=== PATIENT | male | born 1950 ===

== ENCOUNTER 2020-12-31 11:15 | Outpatient (REF) | payer OTHER, MEDICAID, SELFPAY ==
[2020-12-31 12:17] LABS: MANUAL DIFF FLAG NO
[2020-12-31 12:21] LABS: Basophils Percent Auto 0.5 % (0-2); Eosinophils Absolute Auto 0.1 X10*3/uL (0.0-0.4); Eosinophils Percent Auto 1.9 % (0-4); Hematocrit 39.3 % (42.0-52.0); Hemoglobin 13.2 g/dl (14.0-18.0); Imm Gran Abs Auto 0.02 X10*3/uL (0.00-0.03); Imm Gran Pct Auto 0.3 % (0.0-0.4); Lymphocytes Absolute Auto 1.3 X10*3/uL (1.2-4.9); Lymphocytes Percent Auto 20.2 % (20-40); Mean Corpuscular HGB Conc 33.6 g/dl (31.0-36.0); Mean Corpuscular Hemoglobin 27.8 pg (27.0-33.0); Mean Corpuscular Volume 82.9 fL (80.0-98.0); Mean Platelet Volume 11.6 fL (9.4-12.4); Monocytes Absolute Auto 0.5 X10*3/uL (0.1-1.2); Monocytes Percent Auto 8.6 % (2-11); Neutrophils Absolute Auto 4.3 x10*3/uL (2.0-8.3); Neutrophils Percent Auto 68.5 % (45-73); Platelet Count 163 X10*3/uL (160-400); Red Blood Count 4.74 X10*6/uL (4.60-5.80); Red Cell Distribution Width 12.9 % (11.0-16.0); White Blood Count 6.3 X10*3/uL (4.8-10.8)
[2020-12-31 12:34] LABS: INTERNATIONAL NORM RATIO 1.2 (0.9-1.1); Prothrombin Time 13.2 SEC (9.9-13.0)
[2020-12-31 12:44] LABS: Alanine Aminotransferase 12 U/L (0-40); Albumin Level 4.2 g/dL (3.5-5.0); Alkaline Phosphatase 66 U/L (39-117); Anion Gap 11 (12-20); Aspartate Amino Transferase 14 U/L (5-37); Bilirubin Direct 0.2 mg/dL (0.0-0.5); Bilirubin Total 0.4 mg/dL (0.0-1.0); Blood Urea Nitrogen 20 mg/dL (9-16); Calcium 9.2 mg/dL (8.4-10.2); Carbon Dioxide 24 mmol/L (22-29); Chloride 110 mmol/L (96-108); Estimated Glomerular Filt Rate > 60; Glucose Random 96 mg/dL (60-115); Potassium 3.8 mmol/L (3.3-5.1); Sodium 141 mmol/L (135-145); Total Protein 7.3 g/dL (6.5-8.0)
[2021-01-03 10:22] LABS: HCV Log PCR <1.18 NOT DETECTED Log IU/mL (NOT DETECTED); HepC Viral Load <15 NOT DETECTED IU/mL (NOT DETECTED)
[2021-01-03 16:16] LABS: FIB-ALT 9 U/L (9-46); FIB-Alpha-2-Macroglobulin 240 mg/dL (106-279); FIB-Apolipoprotein A1 102 mg/dL (94-176); FIB-GGT 13 U/L (3-70); FIB-Haptoglobin 99 mg/dL (43-212); FIB-Total Bilirubin 0.4 mg/dL (0.2-1.2); Liver Fibrosis Score 0.47; Liver Fibrosis Stage F1-F2; Nec Inflam Act Grade A0; Nec Inflam Act Score 0.03
== END 2020-12-31 11:16 | disposition home or self-care (01) ==
LOC: HO.LAB 11:15
PROVIDERS: PCP Internal Medicine; Visit Provider Internal Medicine
DX: B19.20 Unspecified viral hepatitis C without hepatic coma (principal)
CPT/HCPCS: 36415; 80048; 80076; 81596; 85025; 85610; 87522; 99202

== ENCOUNTER 2025-02-05 14:36 | Outpatient (AMB) | payer OTHER, SELFPAY ==
--- OUTSIDE RECORDS SUMMARY | 2025-02-05 14:50 | XMS_ITS | Encounter Summary ---
Author Organization [facility] [address] Address [address] [place] [address] Care Team Providers Care Senior Validation Engineer Name Role Phone Florentin Travis NP Primary Care Provider [phone] Reason for Visit * Consultation (Routine) - Authorized Specialty Diagnoses / Procedures Referred By Flavio guevara Referred To Contact Neurology Diagnoses Cervical dystonia Florentin Travis NP [address] [address] Phone: tel: fax:[phone] [facility] [address] Phone: tel: Referral ID Status Reason Start Date Expiration Date Visits Requested Visits Authorized [id number] Authorized Specialty Services Required 11/12/2024 11/12/2025 1 1 Encounter Details Date Type Department Care Team ([facility] Contact Info) Description 02/05/2025 2:50 PM EST PACE External Visit [facility] [address] [place] [id number] Social History Tobacco Use Types Packs/Day Years Used Date Smoking Tobacco: Former Cigarettes Comments:tob stopped 1982 Alcohol Use Standard Drinks/Week Comments Not Asked 0 (1 standard drink = 0.6 oz pur e alcohol) last drank in 2016 Sex and Gender Information Value Date Recorded Sex Assigned at Male 03/02/2024 10:20 AM EST Legal Sex Male 2:03 PM EST Gender Identity Male 03/02/2024 10:20 AM EST Sexual Orientation Straight 03/02/2024 10 :20 AM EST documented as of this encounter Plan of Treatment Upcoming Encounters Date Type Department Care Team ([facility] st Contact Info) Description 02/06/2025 10:30 AM EST PACE Home Care / [place] [facility] [place] [facility] [address] [place] [address] Leonides Lopez 02/07/2025 9:00 AM EST P[place] Attend[place] [facility] [place] [facility] [address] [place] [address] 02/08/2025 9:00 AM EST PACE Att[place] [facility] [place] [facility] [address] [place] [address] 02/11/2025 9:00 AM EST PACE Att[place] [facility] [place] [facility] [address] [place] [address] 02/12/2025 9:00 AM EST PACE Att[place] [facility] [place] [facility] [address] [place] [address] 02/13/2025 10:30 AM EST PACE Home Care / [place] [facility] [place] [facility] [place] [facility] [address] [place] [address] Leonides Lopez 02/14/2025 9:00 AM EST PACE Att[place] [facility] [place] [facility] [address] [place] [address] 02/15/2025 9:00 AM EST PACE [place] [facility] [place] [facility] [address] [place] [address] 02/18/2025 9:00 AM EST PACE Att[place] [facility] [place] [facility] [facility] [address] [place] [address] 02/19/2025 9:00 AM EST PACE Att[place] [facility] [place] [facility] [facility] [address] [place] [address] 02/20/2025 10:30 AM EST PACE Home Care / [place] [facility] [place] [facility] [address] [place] [address] Leonides Lopez 02/21/2025 9:00 AM EST PACE Att[place] [facility] [place] [facility] [address] [place] [address] 02/21/2025 2:00 PM EST PACE Home Care / [place] [facility] [place] [facility] [address] [place] [address] Chanell Marcos 02/22/2025 9:00 AM EST PACE [place] [facility] [place] [facility] [facility] [address] [place] [address] 02/25/2025 9:00 AM EST [place] [facility] [place] [facility] [address] [place] [address] 02/26/2025 9:00 AM EST PACE [place] [facility] [place] [facility] [facility] [address] [place] [address] 02/27/2025 10:30 AM EST PACE Home Care / [place] [facility] [place] [facility] [address] [place] [address] Leonides Lopez 02/28/2025 9:00 AM EST PACE Att[place] [facility] [place] [facility] [facility] [address] [place] [address] 03/01/2025 9:00 AM EST P[place] [facility] [place] [facility] [address] [place] [address] 03/04/2025 9:00 AM EST PACE Attendance/[facility] [place] [facility] [address] [place] [address] 03/05/2025 9:00 AM EST PACE Att[place] [facility] [place] [facility] [facility] [address] [place] [address] 03/06/2025 10:30 AM EST PACE Home Care / [place] [facility] [place] [facility] [address] [place] [address] Leonides Lopez 03/07/2025 9:00 AM EST PACE Att[place] [facility] [place] [facility] [address] [place] [address] 03/07/2025 1:00 PM EST Clinical Support [facility] [place] [address] [place] [address] 03/08/2025 9:00 AM EST PACE [place] [facility] [place] [facility] [facility] [address] [place] [address] 03/11/2025 9:00 AM EST P[place] [facility] [place] [facility] [facility] [address] [place] [address] 03/12/2025 9:00 AM EST P[place] [facility] [place] [facility] [address] [place] [address] 03/13/2025 10:30 AM EST PACE Home Care / [place] [facility] [place] [facility] [address] [place] [address] Leonides Lopez 03/14/2025 9:00 AM EST P[place] [facility] [place] [facility] [address] [place] [address] 03/14/2025 2:00 PM EST PACE Home Care / [place] [facility] [place] [facility] [address] [place] [address] Chanell Marcos 03/15/2025 9:00 AM EST P[place] [facility] [place] [facility] [address] [place] [address] 03/18/2025 9:00 AM EST P[place] [facility] [place] [facility] [address] [place] [address] 03/19/2025 9:00 AM EST [place] [facility] [place] [facility] [address] [place] [address] 03/20/2025 10:30 AM EST PACE Home Care / [place] [facility] [place] [facility] [address] [place] [address] Leonides Lopez 03/21/2025 9:00 AM EST P[place] [facility] [place] [facility] [facility] [address] [place] [address] 03/22/2025 9:00 AM EST [place] [facility] [place] [facility] [address] [place] [address] 03/25/2025 9:00 AM EST P[place] [facility] [place] [facility] [address] [place] [address] 03/26/2025 9:00 AM EST [place] [facility] [place] [facility] [address] [place] [address] 03/27/2025 10:30 AM EST PACE Home Care / [place] [facility] [place] [facility] [address] [place] [address] Leonides Lopez 03/28/2025 9:00 AM EST [place] [facility] [place] [facility] [facility] [address] [place] [address] 03/29/2025 9:00 AM EST [place] [facility] [place] [facility] [facility] [address] [place] [address] 04/01/2025 9:00 AM EST [place] [facility] [place] [facility] [facility] [address] [place] [address] 04/02/2025 9:00 AM EST [place] [facility] [place] [facility] [facility] [address] [place] [address] 04/03/2025 10:30 AM EST PACE Home Care / [place] [facility] [place] [facility] [address] [place] [address] Leonides Lopez 04/04/2025 9:00 AM EST [place] [facility] [place] [facility] [facility] [address] [place] [address] 04/04/2025 2:00 PM EST PACE Home Care / [place] [facility] [place] [facility] [address] [place] [address] Chanell Marcos 04/05/2025 9:00 AM EST P[place] [facility] [place] [facility] [address] [place] [address] 04/08/2025 9:00 AM EST P[place] [facility] [place] [facility] [address] [place] [address] 04/09/2025 9:00 AM EST [place] [facility] [place] [facility] [address] [place] [address] 04/11/2025 9:00 AM EST P[place] [facility] [place] [facility] [address] [place] [address] 04/12/2025 9:00 AM EST P[place] [facility] [place] [facility] [address] [place] [address] 04/15/2025 9:00 AM EST P[place] [facility] [place] [facility] [facility] [address] [place] [address] 04/16/2025 9:00 AM EST [place] [facility] [place] [facility] [facility] [address] [place] [address] 04/18/2025 9:00 AM EST PACE Attendance[facility] [place] [facility] [address] [place] [address] 04/19/2025 9:00 AM EST PACE [place] [facility] [place] [facility] [facility] [address] [place] [address] 04/22/2025 9:00 AM EST P[place] [facility] [place] [facility] [address] [place] [address] 04/23/2025 9:00 AM EST PACE [place] [facility] [place] [address] [place] [address] 04/25/2025 9:00 AM EST P[place] [facility] [place] [address] [place] [address] 04/26/2025 9:00 AM EST P[place] [facility] [place] [facility] [address] [place] [address] 04/29/2025 9:00 AM EDT PACE Att[place] [facility] [place] [facility] [address] [place] [address] 04/30/2025 9:00 AM EDT PACE Att[place] [facility] [place] [address] [place] [address] 05/02/2025 9:00 AM EDT P[place] Att[place] [facility] [place] [facility] [address] [place] [address] 05/03/2025 9:00 AM EDT P[place] Att[place] [facility] [place] [facility] [address] [place] [address] 05/06/2025 9:00 AM EDT P[place] Att[place] [facility] [place] [facility] [address] [place] [address] 05/07/2025 9:00 AM EDT P[place] Att[place] [facility] [place] [facility] [address] [place] [address] 05/09/2025 9:00 AM EDT P[place] Att[place] [facility] [place] [facility] [address] [place] [address] 05/10/2025 9:00 AM EDT P[place] [facility] [place] [facility] [address] [place] [address] 05/13/2025 9:00 AM EDT P[place] Att[place] [facility] [place] [facility] [address] [place] [address] 05/14/2025 9:00 AM EDT P[place] [facility] [place] [facility] [address] [place] [address] 05/16/2025 9:00 AM EDT P[place] [facility] [place] [facility] [address] [place] [address] 05/17/2025 9:00 AM EDT P[place] Att[place] [facility] [place] [facility] [address] [place] [address] 05/20/2025 9:00 AM EDT [place] Att[place] [facility] [place] [facility] [address] [place] [address] 05/21/2025 9:00 AM EDT P[place] Att[place] [facility] [place] [facility] [address] [place] [address] 05/23/2025 9:00 AM EDT P[place] [facility] [place] [facility] [facility] [address] [place] [address] 05/24/2025 9:00 AM EDT P[place] [facility] [place] [facility] [facility] [address] [place] [address] 05/27/2025 9:00 AM EDT P[place] Att[place] [facility] [place] [facility] [address] [place] [address] 05/28/2025 9:00 AM EDT P[place] Att[place] [facility] [place] [facility] [facility] [address] [place] [address] 05/30/2025 9:00 AM EDT P[place] Att[place] [facility] [place] [facility] [address] [place] [address] 05/31/2025 9:00 AM EDT P[place] [facility] [place] [facility] [facility] [address] [place] [address] 06/03/2025 9:00 AM EDT P[place] Att[place] [facility] [place] [facility] [address] [place] [address] 06/04/2025 9:00 AM EDT P[place] [facility] [place] [facility] [address] [place] [address] 06/06/2025 9:00 AM EDT P[place] [facility] [place] [facility] [address] [place] [phone] 06/07/2025 9:00 AM EDT P[place] [facility] [place] [facility] [address] [place] [address] 06/10/2025 9:00 AM EDT P[place] [facility] [place] [facility] [address] [place] [address] 06/11/2025 9:00 AM EDT P[place] Att[place] [facility] [place] [facility] [address] [place] [address] 06/13/2025 9:00 AM EDT P[place] Att[place] [facility] [place] [facility] [address] [place] [address] 06/14/2025 9:00 AM EDT P[place] [facility] [place] [facility] [facility] [address] [place] [address] 06/17/2025 9:00 AM EDT P[place] [facility] [place] [facility] [facility] [address] [place] [address] 06/18/2025 9:00 AM EDT P[place] Att[place] [facility] [place] [facility] [address] [place] [address] 06/20/2025 9:00 AM EDT P[place] [facility] [place] [facility] [facility] [address] [place] [address] 06/21/2025 9:00 AM EDT P[place] [facility] [place] [facility] [address] [place] [address] 06/24/2025 9:00 AM EDT P[place] [facility] [place] [facility] [facility] [address] [place] [address] 06/25/2025 9:00 AM EDT P[place] [facility] [place] [facility] [address] [place] [address] 06/27/2025 9:00 AM EDT P[place] [facility] [place] [facility] [address] [place] [address] 06/28/2025 9:00 AM EDT P[place] [facility] [place] [facility] [address] [place] [address] 07/01/2025 9:00 AM EDT P[place] Att[place] [facility] [place] [facility] [address] [place] [address] 07/02/2025 9:00 AM EDT [place] Att[place] [facility] [place] [facility] [address] [place] [address] 07/04/2025 9:00 AM EDT [place] Att[place] [facility] [place] [facility] [address] [place] [address] 07/05/2025 9:00 AM EDT P[place] [facility] [place] [facility] [address] [place] [address] 07/08/2025 9:00 AM EDT P[place] [facility] [place] [facility] [address] [place] [address] 07/09/2025 9:00 AM EDT [place] [facility] [place] [facility] [address] [place] [address] 07/11/2025 9:00 AM EDT P[place] [facility] [place] [facility] [address] [place] [address] 07/12/2025 9:00 AM EDT P[place] [facility] [place] [facility] [address] [place] [address] 07/15/2025 9:00 AM EDT P[place] [facility] [place] [facility] [address] [place] [address] 07/16/2025 9:00 AM EDT P[place] [facility] [place] [facility] [address] [place] [address] 07/18/2025 9:00 AM EDT P[place] [facility] [place] [facility] [address] [place] [address] 07/19/2025 9:00 AM EDT P[place] [facility] [place] [facility] [address] [place] [address] 07/22/2025 9:00 AM EDT P[place] [facility] [place] [facility] [address] [place] [address] 07/23/2025 9:00 AM EDT P[place] [facility] [place] [facility] [address] [place] [address] 07/25/2025 9:00 AM EDT P[place] Att[place] [facility] [place] [facility] [address] [place] [address] 07/26/2025 9:00 AM EDT P[place] [facility] [place] [facility] [address] [place] [address] 07/29/2025 9:00 AM EDT P[place] Att[place] [facility] [place] [facility] [address] [place] [address] 07/30/2025 9:00 AM EDT P[place] Att[place] [facility] [place] [facility] [address] [place] [address] 08/01/2025 9:00 AM EDT P[place] [facility] [place] [facility] [address] [place] [address] 08/02/2025 9:00 AM EDT P[place] [facility] [place] [facility] [address] [place] [address] 08/05/2025 9:00 AM EDT P[place] [facility] [place] [facility] [address] [place] [address] 08/06/2025 9:00 AM EDT P[place] [facility] [place] [facility] [address] [place] [address] 08/08/2025 9:00 AM EDT P[place] Att[place] [facility] [place] [facility] [address] [place] [address] 08/09/2025 9:00 AM EDT PACE Att[place] [facility] [place] [facility] [address] [place] [address] 08/12/2025 9:00 AM EDT P[place] [facility] [place] [facility] [address] [place] [address] 08/13/2025 9:00 AM EDT P[place] Att[place] [facility] [place] [facility] [address] [place] [address] 08/15/2025 9:00 AM EDT [place] [facility] [place] [facility] [address] [place] [address] 08/16/2025 9:00 AM EDT P[place] [facility] [place] [facility] [address] [place] [address] 08/19/2025 9:00 AM EDT [place] [facility] [place] [facility] [address] [place] [address] 08/20/2025 9:00 AM EDT [place] [facility] [place] [facility] [address] [place] [address] 08/22/2025 9:00 AM EDT [place] [facility] [place] [facility] [address] [place] [address] 08/23/2025 9:00 AM EDT P[place] [facility] [place] [facility] [address] [place] [address] 08/26/2025 9:00 AM EDT P[place] [facility] [place] [facility] [address] [place] [address] 08/27/2025 9:00 AM EDT P[place] [facility] [place] [facility] [address] [place] [address] 08/29/2025 9:00 AM EDT P[place] [facility] [place] [facility] [address] [place] [address] 08/30/2025 9:00 AM EDT P[place] [facility] [place] [facility] [address] [place] [address] 09/02/2025 9:00 AM EDT P[place] [facility] [place] [facility] [address] [place] [address] 09/03/2025 9:00 AM EDT PACE Attendance/Day Center [facility] Day Center [address] [place] [address] 09/05/2025 9:00 AM EDT PACE Attendance/Day Center [facility] Day Center [address] [place] [address] 09/06/2025 9:00 AM EDT PACE Attendance/Day Center [facility] Day Center [address] [place] [address] 09/09/2025 9:00 AM EDT [facility] Day Center [address] [place] [address] 09/10/2025 9:00 AM EDT [facility] PACE Day [address] [address] 09/12/2025 9:00 AM EDT [facility] Day [address] [address] documented as of this encounter Visit Diagnoses Not on filedocumented in this encounter Orders Outpatient Referral Count Last Ordered Date Fir st Ordered Date AMB REFERRAL TO NEUROLOGY 1 02/05/2025 documented in this encounter Additional Health Concerns Assessment Noted Time PHQ-9 Depression Total Score: 0 12/29/19 25 10:21 AM EST documented as of this encounter Care Teams Senior Validation Engineer Relationship Specialty Start Date End Date Florentin Travis NP [address] [facility] [address] [place] [address] PCP - General 12/27/23 documented as of this encounter
--- NOTE | 2025-02-05 15:06 | MHC.OFFVIS ---
Intake Visit Reasons: cervical dystonia Allergies No Known Allergies Allergy (Verified 12/31/20 11:20) HPI Comments Details: The patient is a 74-year-old male who presents for evaluation after his clinic scheduled an appointment for him regarding an ongoing neck issue. He reports that for the past several years, his neck has been involuntarily turning up and to the right. He describes the sensation as discomfort rather than pain. The patient reports taking a muscle relaxer for his neck, which he finds helpful. He also takes lorazepam for anxiety. [facility] Medical History Hepatitis C Review of Systems Narrative Constitutional:?No fever, chills, fatigue, weight loss, or night sweats. HEENT:?No headache, vision changes, hearing loss, nasal congestion, sore throat. Cardiovascular:?No chest pain, palpitations, orthopnea, PND, or leg swelling. Respiratory:?No cough, shortness of breath, wheezing, or hemoptysis. Gastrointestinal:?No nausea, vomiting, abdominal pain, diarrhea, or constipation. Genitourinary:?No dysuria, frequency, incontinence, or hematuria. Musculoskeletal:?No joint pain, stiffness, weakness, or muscle aches. Neurological:? Complain of neck tilting to right side Psychiatric:? Complain of anxiety Endocrine:?No heat/cold intolerance, polydipsia, polyuria, or hair/skin changes. Hematologic/Lymphatic:?No easy bruising, bleeding, or lymphadenopathy. Integumentary (Skin):?No rash, lesions, itching, or color changes. Allergic/Immunologic:?No seasonal allergies, hives, or recurrent infections. Physical Exam Neuro Other: Mental Status: Alert and oriented to person, place, and time. Normal attention. Normal spontaneous speech, fluency, and comprehension. Cranial Nerves: CN II: Visual murillo full to confrontation, visual acuity intact. CN III, IV, : Pupils equal, round, reactive to light and accommodation. Extraocular movements are normal. CN V: Facial sensation is normal. CN VII: Facial movements symmetrical. CN VIII: Hearing intact to bedside conversation is normal. CN IX, X: Palate elevates symmetrically. CN XI: Shoulder shrug and head turn symmetrical. CN XII: Tongue midline without atrophy or fasciculations. Motor: Bulk and tone normal in all extremities. No significant muscle weakness in arms and legs. No drift. Reflexes: Deep tendon reflexes trace and symmetric. Plantar response down-going bilaterally. Coordination: [id number] was okay. Gait and Station: No obvious gait abnormality. No ataxia or instability. Sensory: Intact to light touch, pinprick, and vibration. Romberg is negative. Extrapyramidal: Moderate neck dystonia to the right side with prominence of left sternocleidomastoid muscle. Speech: Normal; no dysarthria or tremor. 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 He was educated about this condition and its potential treatment. Treatment of choice is Botox, which he did not want to have. Medical treatment does not work and this type of condition. He was not having any neck pain and decided not to have any treatment. In future, if he changes his mind he can contact our office and Botox can be tried. The procedure of giving Botox and its potential benefits and risks were discussed. Coding Level of Care Code New Pt Level 3 (89490) Diagnoses Cervical dystonia G24.3
--- OUTSIDE RECORDS SUMMARY | 2025-02-05 18:52 | XMS_ITS | Encounter Summary ---
Author Organization [facility] Address [address] [place] [address] Care Team Providers Care Awning Spreader Name Role Phone Florentin Travis NP Primary Care Provider [phone] Reason for Visit * Reason Onset Date Comments Clinical 11/02/2024 Par called to re port after eating potato chips and drinking a pieter daniel he has heartburn. Par stated he had some tums and would that help. Instructed par to take them and drink warm water to assist with getting some relief. Verbalized understanding. Instructed to call back if symptoms worsen. Encounter Details Date Type Department Care Team ([facility] Contact Info) Description 11/02/2024 [facility] On-Call [facility] [address] [place] [address] Florentin Travis NP [address] [address] Social History Tobacco Use Types Packs/Day Years [...] Upcoming Encounters Date Type Department Care Team ([facility] Contact Info) Description 02/06/2025 10:30 AM EST PACE Home Care / [place] [facility] [place] [facility] [address] [place] [address] Leonides Lopez 02/07/2025 9:00 AM EST [place] Att[place] [facility] [place] [address] [place] [address] 02/08/2025 9:00 AM EST [place] [facility] [place] [address] [place] [address] 02/11/2025 9:00 AM EST [place] [facility] [place] [address] [place] [address] 02/12/2025 9:00 AM EST [place] [facility] [place] [address] [place] [phone] 02/13/2025 10:30 AM EST PACE Home Care / [facility] [place] [facility] [address] [place] [address] Leonides Lopez 02/14/2025 9:00 AM EST PACE [place] [facility] [place] [facility] [address] [place] [address] 02/15/2025 9:00 AM EST P[place] [facility] [place] [address] [place] [phone] 02/18/2025 9:00 AM EST [place] [facility] [place] [facility] [address] [place] [phone] 02/19/2025 9:00 AM EST [place] [facility] [place] [facility] [address] [place] [phone] 02/20/2025 10:30 AM EST PACE Home Care / [place] [facility] [place] [facility] [address] [place] [phone] Leonides Lopez 02/21/2025 9:00 AM EST [place] [facility] [place] [address] [place] [address] 02/21/2025 2:00 PM EST PACE Home Care / [place] [facility] [place] [facility] [address] [place] [address] Chanell Marcos 02/22/2025 9:00 AM EST P[place] [facility] [place] [facility] [address] [place] [address] 02/25/2025 9:00 AM EST [place] [facility] [place] [facility] [address] [place] [address] 02/26/2025 9:00 AM EST [place] [facility] [place] [facility] [place] [address] [place] [phone] 02/27/2025 10:30 AM EST PACE Home Care / [place] [facility] [place] [facility] [address] [place] [phone] Leonides Lopez 02/28/2025 9:00 AM EST [place] [facility] [place] [address] [place] [address] 03/01/2025 9:00 AM EST [place] [facility] [place] [facility] [address] [place] [address] 03/04/2025 9:00 AM EST [place] [facility] [place] [facility] [address] [place] [address] 03/05/2025 9:00 AM EST P[place] [facility] [place] [facility] [address] [place] [address] 03/06/2025 10:30 AM EST PACE Home Care / [place] [facility] [place] [facility] [address] [place] [address] Leonides Lopez 03/07/2025 9:00 AM EST [place] [facility] [place] [facility] [address] [place] [address] 03/07/2025 1:00 PM EST [facility] [address] [place] [address] 03/08/2025 9:00 AM EST [place] [facility] [place] [address] [place] [address] 03/11/2025 9:00 AM EST [place] [facility] [place] [address] [place] [address] 03/12/2025 9:00 AM EST [place] [facility] [place] [address] [address] 03/13/2025 10:30 AM EST PACE Home Care / [facility] [place] [facility] [address] [place] [phone] Leonides Lopez 03/14/2025 9:00 AM EST [place] [facility] [place] [address] [address] 03/14/2025 2:00 PM EST PACE Home Care / [place] [facility] [place] [facility] [address] [place] [phone] Chanell Marcos 03/15/2025 9:00 AM EST [place] [facility] [place] [address] [place] [phone] 03/18/2025 9:00 AM EST [place] [facility] [place] [address] [place] [address] 03/19/2025 9:00 AM EST [place] [facility] [place] [address] [place] [address] 03/20/2025 10:30 AM EST PACE Home Care / [place] [facility] [place] [facility] [address] [place] [address] Leonides Lopez 03/21/2025 9:00 AM EST [place] [facility] [place] [address] [place] [address] 03/22/2025 9:00 AM EST [place] [facility] [place] [address] [place] [address] 03/25/2025 9:00 AM EST [place] [facility] [place] [address] [place] [address] 03/26/2025 9:00 AM EST [place] [facility] [place] [address] [place] [address] 03/27/2025 10:30 AM EST PACE Home Care / [place] [facility] [place] [facility] [address] [place] [address] Leonides Lopez 03/28/2025 9:00 AM EST [place] [facility] [place] [address] [place] [address] 03/29/2025 9:00 AM EST [place] [facility] [place] [address] [place] [address] 04/01/2025 9:00 AM EST [place] [facility] [place] [address] [place] [address] 04/02/2025 9:00 AM EST [place] [facility] [place] [address] [place] [address] 04/03/2025 10:30 AM EST PACE Home Care / [place] [facility] [place] [facility] [address] [place] [address] Leonides Lopez 04/04/2025 9:00 AM EST [place] [facility] [place] [address] [place] [address] 04/04/2025 2:00 PM EST PACE Home Care / [place] [facility] [place] [facility] [address] [place] [address] AshaChanell daily 04/05/2025 9:00 AM EST [place] [facility] [place] [address] [place] [address] 04/08/2025 9:00 AM EST [place] [facility] [place] [address] [place] [address] 04/09/2025 9:00 AM EST PACE Attendance/[place] [facility] [place] [address] [place] [phone] 04/11/2025 9:00 AM EST [place] [facility] [place] [address] [place] [phone] 04/12/2025 9:00 AM EST [place] [facility] [place] [address] [place] [address] 04/15/2025 9:00 AM EST [place] [facility] [place] [facility] [address] [place] [address] 04/16/2025 9:00 AM EST [place] [facility] [place] [address] [place] [address] 04/18/2025 9:00 AM EST PACE Attendance[place] [facility] [place] [address] [place] [address] 04/19/2025 9:00 AM EST [place] [facility] [place] [address] [place] [address] 04/22/2025 9:00 AM EST [place] [facility] [place] [address] [place] [address] 04/23/2025 9:00 AM EST [place] [facility] [place] [address] [place] [address] 04/25/2025 9:00 AM EST [place] [facility] [place] [address] [place] [address] 04/26/2025 9:00 AM EST [place] [facility] [place] [address] [place] [phone] 04/29/2025 9:00 AM EDT [place] Att[place] [facility] [place] [address] [place] [phone] 04/30/2025 9:00 AM EDT [place] [facility] [place] [address] [place] [phone] 05/02/2025 9:00 AM EDT [place] [facility] [place] [address] [place] [phone] 05/03/2025 9:00 AM EDT [place] [facility] [place] [address] [place] [phone] 05/06/2025 9:00 AM EDT [place] [facility] [place] [address] [place] [phone] 05/07/2025 9:00 AM EDT [place] [facility] [place] [facility] [place] [address] [place] [phone] 05/09/2025 9:00 AM EDT [place] [facility] [place] [address] [place] [address] 05/10/2025 9:00 AM EDT [place] [facility] [place] [address] [place] [address] 05/13/2025 9:00 AM EDT [place] [facility] [place] [address] [place] [phone] 05/14/2025 9:00 AM EDT [place] [facility] [place] [facility] [address] [place] [phone] 05/16/2025 9:00 AM EDT [place] [facility] [place] [facility] [address] [place] [address] 05/17/2025 9:00 AM EDT [place] [facility] [place] [address] [place] [phone] 05/20/2025 9:00 AM EDT [place] [facility] [place] [address] [place] [phone] 05/21/2025 9:00 AM EDT [place] [facility] [place] [address] [place] [phone] 05/23/2025 9:00 AM EDT [place] [facility] [place] [facility] [address] [place] [phone] 05/24/2025 9:00 AM EDT [place] [facility] [place] [address] [place] [phone] 05/27/2025 9:00 AM EDT [place] [facility] [place] [address] [place] [phone] 05/28/2025 9:00 AM EDT [place] [facility] [place] [address] [place] [address] 05/30/2025 9:00 AM EDT [place] [facility] [place] [address] [place] [address] 05/31/2025 9:00 AM EDT [place] [facility] [place] [facility] [address] [place] [address] 06/03/2025 9:00 AM EDT [place] [facility] [place] [facility] [address] [place] [address] 06/04/2025 9:00 AM EDT [place] [facility] [place] [facility] [address] [place] [address] 06/06/2025 9:00 AM EDT [place] [facility] [place] [facility] [address] [place] [address] 06/07/2025 9:00 AM EDT [place] [facility] [place] [address] [place] [phone] 06/10/2025 9:00 AM EDT [place] [facility] [place] [facility] [address] [place] [phone] 06/11/2025 9:00 AM EDT [place] [facility] [place] [address] [place] [address] 06/13/2025 9:00 AM EDT [place] [facility] [place] [address] [place] [address] 06/14/2025 9:00 AM EDT [place] [facility] [place] [facility] [address] [place] [address] 06/17/2025 9:00 AM EDT P[place] Att[place] [facility] [place] [facility] [address] [place] [address] 06/18/2025 9:00 AM EDT [place] [facility] [place] [facility] [address] [place] [address] 06/20/2025 9:00 AM EDT [place] [facility] [place] [address] [place] [address] 06/21/2025 9:00 AM EDT [place] [facility] [place] [facility] [address] [place] [address] 06/24/2025 9:00 AM EDT [place] [facility] [place] [facility] [address] [place] [address] 06/25/2025 9:00 AM EDT [place] [facility] [place] [address] [place] [phone] 06/27/2025 9:00 AM EDT [place] [facility] [place] [facility] [address] [place] [phone] 06/28/2025 9:00 AM EDT [place] [facility] [place] [facility] [address] [place] [phone] 07/01/2025 9:00 AM EDT [place] [facility] [place] [address] [place] [address] 07/02/2025 9:00 AM EDT [place] [facility] [place] [facility] [address] [place] [address] 07/04/2025 9:00 AM EDT [place] [facility] [place] [facility] [address] [place] [address] 07/05/2025 9:00 AM EDT [place] [facility] [place] [facility] [address] [place] [address] 07/08/2025 9:00 AM EDT [place] [facility] [place] [facility] [address] [place] [address] 07/09/2025 9:00 AM EDT [place] [facility] [place] [facility] [address] [place] [address] 07/11/2025 9:00 AM EDT [place] [facility] [place] [facility] [address] [place] [address] 07/12/2025 9:00 AM EDT [place] [facility] [place] [facility] [address] [place] [address] 07/15/2025 9:00 AM EDT [place] [facility] [place] [facility] [address] [place] [phone] 07/16/2025 9:00 AM EDT [place] [facility] [place] [facility] [address] [place] [phone] 07/18/2025 9:00 AM EDT [place] [facility] [place] [facility] [address] [place] [phone] 07/19/2025 9:00 AM EDT [place] [facility] [place] [facility] [facility] [address] [place] [address] 07/22/2025 9:00 AM EDT [place] [facility] [place] [facility] [address] [place] [phone] 07/23/2025 9:00 AM EDT [place] [facility] [place] [facility] [facility] [address] [place] [address] 07/25/2025 9:00 AM EDT [place] [facility] [place] [facility] [address] [place] [address] 07/26/2025 9:00 AM EDT [place] [facility] [place] [facility] [address] [place] [phone] 07/29/2025 9:00 AM EDT [place] [facility] [place] [facility] [address] [place] [phone] 07/30/2025 9:00 AM EDT [place] [facility] [place] [facility] [address] [place] [phone] 08/01/2025 9:00 AM EDT [place] [facility] [place] [facility] [address] [place] [phone] 08/02/2025 9:00 AM EDT [place] [facility] [place] [facility] [address] [place] [phone] 08/05/2025 9:00 AM EDT [place] [facility] [place] [facility] [address] [place] [phone] 08/06/2025 9:00 AM EDT [place] [facility] [place] [facility] [address] [place] [phone] 08/08/2025 9:00 AM EDT [place] [facility] [place] [facility] [address] [place] [phone] 08/09/2025 9:00 AM EDT [place] [facility] [place] [facility] [address] [place] [phone] 08/12/2025 9:00 AM EDT [place] [facility] [place] [facility] [address] [place] [phone] 08/13/2025 9:00 AM EDT [place] [facility] [place] [facility] [address] [place] [phone] 08/15/2025 9:00 AM EDT [place] [facility] [place] [facility] [address] [place] [address] 08/16/2025 9:00 AM EDT [place] [facility] [place] [facility] [address] [place] [address] 08/19/2025 9:00 AM EDT [place] [facility] [place] [facility] [address] [place] [address] 08/20/2025 9:00 AM EDT [place] [facility] [place] [address] [place] [phone] 08/22/2025 9:00 AM EDT [place] [facility] [place] [address] [place] [phone] 08/23/2025 9:00 AM EDT [place] [facility] [place] [facility] [address] [place] [phone] 08/26/2025 9:00 AM EDT [place] [facility] [place] [facility] [address] [place] [phone] 08/27/2025 9:00 AM EDT [place] [facility] [place] [address] [place] [phone] 08/29/2025 9:00 AM EDT [place] [facility] [place] [facility] [address] [place] [phone] 08/30/2025 9:00 AM EDT [place] [facility] [place] [address] [place] [phone] 09/02/2025 9:00 AM EDT [place] [facility] [place] [facility] [address] [place] [phone] 09/03/2025 9:00 AM EDT [place] [facility] [place] [address] [place] [phone] 09/05/2025 9:00 AM EDT PACE [facility] [address] [place] [phone] 09/06/2025 9:00 AM EDT PACE [facility] [address] [place] [phone] 09/09/2025 9:00 AM EDT PACE [facility] [address] [place] [phone] 09/10/2025 9:00 AM EDT PACE [facility] [address] [place] [phone] 09/12/2025 9:00 AM EDT PACE [facility] [place] [facility] [address] [place] [phone] documented as of this encounter Visit Diagnoses Not on filedocumented in this encounter Care Teams Awning Spreader Relationship Specialty Start Date End Date Florentin Travis NP [address] [address] PCP - General 12/27/23 documented as of this encounter
--- OUTSIDE RECORDS SUMMARY | 2025-02-05 18:52 | XMS_ITS | Encounter Summary ---
Author Organization [facility] Address [address] [place] [address] Care Team Providers Care Optomechanical Technician Name Role Phone Florentin Travis NP Primary Care Provider [phone] Reason for Visit * Reason Onset Date Comments Clinical 04/28/2024 Participant call ed for a 3rd time today related to anxiety issues after taking prescribed medications. Reports meds are not working. Participant states he needs to go to the ER. Instructed participant to call back with any further info following ER visit. fisher scallop provider made aware. Hospitalization/ER 04/28/2024 Encounter Details Date Type Department Care Team ([facility] st Contact Info) Description 04/28/2024 [place] On-Call [facility] [address] [place] [address] Florentin Travis NP [address] [address] Social History Tobacco Use Types Packs/Day Years [...] AM EST documented as of this encounter Functional Status * Calculated C-SSRS Risk Score (Lifetime/Recent) Answer Date of Assessment Author No Risk Indicated 04/30/2024 10:11 AM EDT Chanell Obando RN * Mcintosh Suicide Severity Rating Scale (Screener/Recent Self-Report) Question Answer Date of Assessment Author 1. Wish to be (Past 1 Month) No 025 10:11 AM Chanell Adkins, BRAIN 2. Non-Specific Active Suici simi Thoughts (Past 1 Month) No 04/30/2024 10:11 AM TRACIET Brodie Mora RN 6. Suicidal Behavior (Lifetime) No 10:11 AM TRACIET Chanell Mora RN 6. Suicidal Behavior (3 Months) No 5 10:11 AM Chanell Adkins RN documented as of this encounter Plan of Treatment Upcoming Encounters Date Type Department Care Team (Late st Contact Info) Description 02/06/2025 10:30 AM EST P[facility] Home [place] / [place] [facility] [place] [facility] [address] [place] [phone] Leonides Lopez 02/07/2025 9:00 AM EST [place] [facility] [place] [facility] [address] [place] [phone] 02/08/2025 9:00 AM EST [place] [facility] [place] [facility] [address] [place] [phone] 02/11/2025 9:00 AM EST [place] [facility] [place] [address] [place] [phone] 02/12/2025 9:00 AM EST P[place] [facility] [place] [facility] [address] [place] [phone] 02/13/2025 10:30 AM EST PACE Home Care / [place] [facility] [place] [facility] [address] [place] [phone] Leonides Lopez 02/14/2025 9:00 AM EST P[place] [facility] [place] [facility] [address] [place] [phone] 02/15/2025 9:00 AM EST [place] [facility] [place] [facility] [facility] [address] [place] [address] 02/18/2025 9:00 AM EST P[place] Att[place] [facility] [place] [facility] [address] [place] [address] 02/19/2025 9:00 AM EST [place] [facility] [place] [facility] [address] [place] [address] 02/20/2025 10:30 AM EST PACE Home Care / [place] [facility] [place] [facility] [address] [place] [phone] Leonides Lopez 02/21/2025 9:00 AM EST [place] [facility] [place] [facility] [address] [place] [phone] 02/21/2025 2:00 PM EST PACE Home Care / [place] [facility] [place] [facility] [address] [place] [phone] Chanell Marcos 02/22/2025 9:00 AM EST [place] [facility] [place] [facility] [address] [place] [phone] 02/25/2025 9:00 AM EST [place] [facility] [place] [facility] [facility] [address] [place] [address] 02/26/2025 9:00 AM EST [place] [facility] [place] [facility] [address] [place] [phone] 02/27/2025 10:30 AM EST PACE Home Care / [place] [facility] [place] [facility] [address] [place] [phone] Leonides Lopez 02/28/2025 9:00 AM EST [place] [facility] [place] [facility] [address] [place] [address] 03/01/2025 9:00 AM EST [place] [facility] [place] [facility] [address] [place] [address] 03/04/2025 9:00 AM EST [place] [facility] [place] [facility] [facility] [address] [place] [address] 03/05/2025 9:00 AM EST [place] [facility] [place] [facility] [facility] [address] [place] [address] 03/06/2025 10:30 AM EST PACE Home Care / [place] [facility] [place] [facility] [address] [place] [phone] Leonides Lopez 03/07/2025 9:00 AM EST [place] [facility] [place] [facility] [address] [place] [phone] 03/07/2025 1:00 PM EST Clinical Support [facility] [place] [address] [place] [phone] 03/08/2025 9:00 AM EST [place] [facility] [place] [facility] [address] [place] [phone] 03/11/2025 9:00 AM EST [place] [facility] [place] [facility] [facility] [address] [place] [address] 03/12/2025 9:00 AM EST [place] [facility] [place] [facility] [facility] [address] [place] [address] 03/13/2025 10:30 AM EST PACE Home Care / [place] [facility] [place] [facility] [address] [place] [phone] Leonides Lopez 03/14/2025 9:00 AM EST [place] [facility] [place] [facility] [address] [place] [address] 03/14/2025 2:00 PM EST PACE Home Care / [place] [facility] [place] [facility] [address] [place] [phone] Chanell Marcos 03/15/2025 9:00 AM EST [place] [facility] [place] [facility] [address] [place] [address] 03/18/2025 9:00 AM EST [place] [facility] [place] [facility] [address] [place] [phone] 03/19/2025 9:00 AM EST [place] [facility] [place] [facility] [address] [place] [phone] 03/20/2025 10:30 AM EST PACE Home Care / [place] [facility] [place] [facility] [address] [place] [phone] Leonides Lopez 03/21/2025 9:00 AM EST [place] [facility] [place] [facility] [address] [place] [phone] 03/22/2025 9:00 AM EST [place] [facility] [place] [facility] [address] [place] [phone] 03/25/2025 9:00 AM EST [place] [facility] [place] [facility] [address] [place] [phone] 03/26/2025 9:00 AM EST [place] [facility] [place] [facility] [address] [place] [phone] 03/27/2025 10:30 AM EST PACE Home Care / [place] [facility] [place] [facility] [address] [place] [phone] Leonides Lopez 03/28/2025 9:00 AM EST [place] [facility] [place] [facility] [address] [place] [address] 03/29/2025 9:00 AM EST [place] [facility] [place] [facility] [address] [place] [address] 04/01/2025 9:00 AM EST [place] [facility] [place] [facility] [address] [place] [address] 04/02/2025 9:00 AM EST [place] [facility] [place] [facility] [address] [place] [phone] 04/03/2025 10:30 AM EST PACE Home Care / [place] [facility] [place] [facility] [address] [place] [phone] Leonides Lopez 04/04/2025 9:00 AM EST [facility] [place] [facility] [address] [place] [phone] 04/04/2025 2:00 PM EST PACE Home Care / [place] [facility] [place] [facility] [address] [place] [phone] Chanell Marcos 04/05/2025 9:00 AM EST [place] [facility] [place] [address] [place] [address] 04/08/2025 9:00 AM EST [place] [facility] [place] [facility] [address] [place] [phone] 04/09/2025 9:00 AM EST [place] [facility] [place] [facility] [address] [place] [phone] 04/11/2025 9:00 AM EST [place] [facility] [place] [facility] [address] [place] [address] 04/12/2025 9:00 AM EST [place] [facility] [place] [facility] [address] [place] [phone] 04/15/2025 9:00 AM EST [place] [facility] [place] [facility] [address] [place] [phone] 04/16/2025 9:00 AM EST [place] [facility] [place] [facility] [address] [place] [phone] 04/18/2025 9:00 AM EST [place] [facility] [place] [facility] [address] [place] [phone] 04/19/2025 9:00 AM EST [place] [facility] [place] [facility] [address] [place] [phone] 04/22/2025 9:00 AM EST [facility] [place] [facility] [address] [place] [phone] 04/23/2025 9:00 AM EST [place] [facility] [place] [facility] [address] [place] [phone] 04/25/2025 9:00 AM EST [place] [facility] [place] [facility] [address] [place] [phone] 04/26/2025 9:00 AM EST [place] [facility] [place] [facility] [address] [place] [phone] 04/29/2025 9:00 AM EDT [place] [facility] [place] [address] [place] [phone] 04/30/2025 9:00 AM EDT [place] [facility] [place] [facility] [address] [place] [phone] 05/02/2025 9:00 AM EDT [place] [facility] [place] [facility] [address] [place] [address] 05/03/2025 9:00 AM EDT [place] [facility] [place] [facility] [address] [place] [address] 05/06/2025 9:00 AM EDT [place] [facility] [place] [facility] [address] [place] [address] 05/07/2025 9:00 AM EDT [place] [facility] [place] [facility] [address] [place] [phone] 05/09/2025 9:00 AM EDT [place] [facility] [place] [address] [place] [phone] 05/10/2025 9:00 AM EDT [place] [facility] [place] [address] [place] [phone] 05/13/2025 9:00 AM EDT [place] [facility] [place] [facility] [address] [place] [phone] 05/14/2025 9:00 AM EDT [place] [facility] [place] [facility] [address] [place] [phone] 05/16/2025 9:00 AM EDT [place] [facility] [place] [facility] [address] [place] [address] 05/17/2025 9:00 AM EDT [place] [facility] [place] [facility] [address] [place] [address] 05/20/2025 9:00 AM EDT [place] [facility] [place] [facility] [address] [place] [phone] 05/21/2025 9:00 AM EDT [place] Att[place] [facility] [place] [facility] [address] [place] [address] 05/23/2025 9:00 AM EDT [place] Att[place] [facility] [place] [facility] [address] [place] [address] 05/24/2025 9:00 AM EDT [place] Att[place] [facility] [place] [facility] [facility] [address] [place] [address] 05/27/2025 9:00 AM EDT P[place] Att[place] [facility] [place] [address] [place] [phone] 05/28/2025 9:00 AM EDT [place] [facility] [place] [facility] [address] [place] [phone] 05/30/2025 9:00 AM EDT [place] [facility] [place] [facility] [address] [place] [phone] 05/31/2025 9:00 AM EDT [place] [facility] [place] [facility] [address] [place] [phone] 06/03/2025 9:00 AM EDT [place] [facility] [place] [facility] [address] [place] [phone] 06/04/2025 9:00 AM EDT [place] [facility] [place] [facility] [address] [place] [phone] 06/06/2025 9:00 AM EDT [place] [facility] [place] [facility] [address] [place] [phone] 06/07/2025 9:00 AM EDT [place] [facility] [place] [facility] [address] [place] [phone] 06/10/2025 9:00 AM EDT [place] Att[place] [facility] [place] [facility] [facility] [address] [place] [address] 06/11/2025 9:00 AM EDT [place] Att[place] [facility] [place] [facility] [facility] [address] [place] [address] 06/13/2025 9:00 AM EDT [place] [facility] [place] [facility] [address] [place] [address] 06/14/2025 9:00 AM EDT [place] [facility] [place] [facility] [address] [place] [phone] 06/17/2025 9:00 AM EDT [place] [facility] [place] [facility] [address] [place] [phone] 06/18/2025 9:00 AM EDT [place] [facility] [place] [facility] [address] [place] [phone] 06/20/2025 9:00 AM EDT [place] [facility] [place] [facility] [address] [place] [phone] 06/21/2025 9:00 AM EDT [place] [facility] [place] [facility] [address] [place] [phone] 06/24/2025 9:00 AM EDT [place] [facility] [place] [facility] [address] [place] [address] 06/25/2025 9:00 AM EDT [place] Att[place] [facility] [place] [facility] [address] [place] [address] 06/27/2025 9:00 AM EDT [place] [facility] [place] [facility] [address] [place] [phone] 06/28/2025 9:00 AM EDT [place] [facility] [place] [facility] [address] [place] [address] 07/01/2025 9:00 AM EDT [place] Att[place] [facility] [place] [facility] [address] [place] [address] 07/02/2025 9:00 AM EDT [place] Att[place] [facility] [place] [facility] [address] [place] [address] 07/04/2025 9:00 AM EDT [place] [facility] [place] [facility] [address] [place] [phone] 07/05/2025 9:00 AM EDT [place] [facility] [place] [facility] [address] [place] [phone] 07/08/2025 9:00 AM EDT [place] [facility] [place] [facility] [address] [place] [phone] 07/09/2025 9:00 AM EDT [place] [facility] [place] [facility] [address] [place] [phone] 07/11/2025 9:00 AM EDT [place] [facility] [place] [facility] [address] [place] [phone] 07/12/2025 9:00 AM EDT [place] [facility] [place] [facility] [address] [place] [phone] 07/15/2025 9:00 AM EDT [place] [facility] [place] [facility] [address] [place] [phone] 07/16/2025 9:00 AM EDT [place] [facility] [place] [facility] [address] [place] [phone] 07/18/2025 9:00 AM EDT [place] [facility] [place] [facility] [facility] [address] [place] [address] 07/19/2025 9:00 AM EDT [place] Att[place] [facility] [place] [facility] [address] [place] [address] 07/22/2025 9:00 AM EDT [place] Att[place] [facility] [place] [facility] [address] [place] [address] 07/23/2025 9:00 AM EDT [place] Att[place] [facility] [place] [facility] [address] [place] [address] 07/25/2025 9:00 AM EDT [place] Att[place] [facility] [place] [facility] [address] [place] [address] 07/26/2025 9:00 AM EDT [place] [facility] [place] [facility] [address] [place] [address] 07/29/2025 9:00 AM EDT [place] [facility] [place] [facility] [address] [place] [phone] 07/30/2025 9:00 AM EDT [place] Att[place] [facility] [place] [facility] [address] [place] [address] 08/01/2025 9:00 AM EDT [place] Att[place] [facility] [place] [facility] [facility] [address] [place] [address] 08/02/2025 9:00 AM EDT [place] [facility] [place] [facility] [facility] [address] [place] [address] 08/05/2025 9:00 AM EDT [place] Att[place] [facility] [place] [facility] [address] [place] [address] 08/06/2025 9:00 AM EDT P[place] Attend[facility] [facility] [place] [facility] [address] [place] [address] 08/08/2025 9:00 AM EDT [place] Att[place] [facility] [place] [facility] [address] [place] [address] 08/09/2025 9:00 AM EDT [place] Att[place] [facility] [place] [facility] [address] [place] [address] 08/12/2025 9:00 AM EDT [place] [facility] [place] [facility] [address] [place] [address] 08/13/2025 9:00 AM EDT [place] [facility] [place] [facility] [address] [place] [address] 08/15/2025 9:00 AM EDT [place] [facility] [place] [facility] [address] [place] [address] 08/16/2025 9:00 AM EDT [place] [facility] [place] [facility] [address] [place] [phone] 08/19/2025 9:00 AM EDT [place] [facility] [place] [facility] [address] [place] [phone] 08/20/2025 9:00 AM EDT [place] [facility] [place] [facility] [address] [place] [address] 08/22/2025 9:00 AM EDT [place] [facility] [place] [facility] [facility] [address] [place] [address] 08/23/2025 9:00 AM EDT [place] [facility] [place] [facility] [facility] [address] [place] [address] 08/26/2025 9:00 AM EDT [place] [facility] [place] [facility] [address] [place] [phone] 08/27/2025 9:00 AM EDT [place] [facility] [place] [address] [place] [phone] 08/29/2025 9:00 AM EDT [place] [facility] [place] [facility] [address] [place] [phone] 08/30/2025 9:00 AM EDT [place] [facility] [place] [facility] [address] [place] [phone] 09/02/2025 9:00 AM EDT [place] [facility] [place] [facility] [address] [place] [phone] 09/03/2025 9:00 AM EDT [place] [facility] [place] [facility] [address] [place] [phone] 09/05/2025 9:00 AM EDT [place] [facility] [place] [facility] [address] [place] [phone] 09/06/2025 9:00 AM EDT [place] [facility] [place] [facility] [address] [place] [phone] 09/09/2025 9:00 AM EDT PACE Attendance/[facility] Center [facility] [address] [place] [phone] 09/10/2025 9:00 AM EDT PACE Attendance/Day Center [facility] [address] [place] [phone] 09/12/2025 9:00 AM EDT [place] [facility] [place] [facility] [address] [place] [phone] documented as of this encounter Visit Diagnoses Not on filedocumented in this encounter Care Teams Optomechanical Technician Relationship Specialty Start Date End Date Florentin Travis NP [address] [address] PCP - General 12/27/23 documented as of this encounter
--- OUTSIDE RECORDS SUMMARY | 2025-02-05 18:52 | XMS_ITS | Encounter Summary ---
Author Organization [facility] Address [address] [place] [address] Care Team Providers Care Records Analysis Manager Name Role Phone Florentin Travis NP Primary Care Provider [phone] Encounter Details Date Type Department Care Team (Late st Contact Info) Description 07/06/2024 Health Home Core Service [facility] [place] [facility] [address] [place] [phone] Penelope Alvarez, ALBA Social History Tobacco Use Types Packs/Day Years Used Date Smoking Tobacco: Former Cigarettes Comments:tob stopped 1982 Alcohol Use Standard Drinks/Week Comments Not Asked 0 (1 standard drink = 0.6 oz pur e alcohol) last drank in 2015 Sex and Gender Information Value Date Recorded [...] PACE Home Care / PACE Home Visit [facility] [address] [place] [phone] Leonides Lopez 02/07/2025 9:00 AM EST PACE Attendance/Day Center [facility] [address] [place] [phone] 02/08/2025 9:00 AM EST [place] Att[place] [facility] [place] [facility] [address] [place] [address] 02/11/2025 9:00 AM EST [place] Att[place] [facility] [place] [facility] [address] [place] [address] 02/12/2025 9:00 AM EST [place] [facility] [place] [facility] [address] [place] [phone] 02/13/2025 10:30 AM EST PACE Home Care / [place] [facility] [place] [facility] [address] [place] [phone] Leonides Lopez 02/14/2025 9:00 AM EST [place] Att[place] [facility] [place] [facility] [address] [place] [address] 02/15/2025 9:00 AM EST [place] Att[place] [facility] [place] [facility] [facility] [address] [place] [address] 02/18/2025 9:00 AM EST [place] [facility] [place] [facility] [address] [place] [phone] 02/19/2025 9:00 AM EST [place] [facility] [place] [facility] [address] [place] [phone] 02/20/2025 10:30 AM EST PACE Home Care / [place] [facility] [place] [facility] [address] [place] [phone] Leonides Lopez 02/21/2025 9:00 AM EST [place] [facility] [place] [facility] [address] [place] [phone] 02/21/2025 2:00 PM EST PACE Home Care / [place] [facility] [place] [facility] [address] [place] [phone] Chanell Marcos 02/22/2025 9:00 AM EST [place] Att[place] [facility] [place] [facility] [facility] [address] [place] [address] 02/25/2025 9:00 AM EST [place] Att[place] [facility] [place] [facility] [facility] [address] [place] [address] 02/26/2025 9:00 AM EST [place] [facility] [place] [facility] [address] [place] [address] 02/27/2025 10:30 AM EST PACE Home Care [facility] [place] [facility] [address] [place] [phone] Leonides Lopez 02/28/2025 9:00 AM EST [place] Att[place] [facility] [place] [facility] [address] [place] [phone] 03/01/2025 9:00 AM EST [place] [facility] [place] [facility] [address] [place] [phone] 03/04/2025 9:00 AM EST [place] [facility] [place] [facility] [address] [place] [phone] 03/05/2025 9:00 AM EST [place] [facility] [place] [facility] [address] [place] [phone] 03/06/2025 10:30 AM EST PACE Home Care / [place] [facility] [place] [facility] [address] [place] [phone] Leonides Lopez 03/07/2025 9:00 AM EST [place] Att[place] [facility] [place] [facility] [address] [place] [phone] 03/07/2025 1:00 PM EST Clinical Support [facility] [address] [place] [phone] 03/08/2025 9:00 AM EST [place] Att[place] [facility] [place] [facility] [address] [place] [address] 03/11/2025 9:00 AM EST [place] [facility] [place] [facility] [address] [place] [address] 03/12/2025 9:00 AM EST [place] [facility] [place] [facility] [address] [place] [address] 03/13/2025 10:30 AM EST PACE Home Care / [place] [facility] [place] [facility] [address] [place] [phone] Leonides Lopez 03/14/2025 9:00 AM EST [place] Att[place] [facility] [place] [facility] [address] [place] [phone] 03/14/2025 2:00 PM EST PACE Home Care / [place] [facility] [place] [facility] [address] [place] [phone] Chanell Marcos 03/15/2025 9:00 AM EST [place] Att[place] [facility] [place] [facility] [facility] [address] [place] [address] 03/18/2025 9:00 AM EST [place] [facility] [place] [facility] [facility] [address] [place] [address] 03/19/2025 9:00 AM EST [place] [facility] [place] [facility] [facility] [address] [place] [address] 03/20/2025 10:30 AM EST PACE Home Care / [place] [facility] [place] [facility] [address] [place] [address] Leonides Lopez 03/21/2025 9:00 AM EST [place] Att[place] [facility] [place] [facility] [address] [place] [address] 03/22/2025 9:00 AM EST [place] Att[place] [facility] [place] [facility] [facility] [address] [place] [address] 03/25/2025 9:00 AM EST P[place] Att[place] [facility] [place] [facility] [address] [place] [address] 03/26/2025 9:00 AM EST [place] Att[place] [facility] [place] [facility] [address] [place] [address] 03/27/2025 10:30 AM EST PACE Home Care / [place] [facility] [place] [facility] [place] [facility] [address] [place] [phone] Leonides Lopez 03/28/2025 9:00 AM EST P[place] Att[place] [facility] [place] [facility] [address] [place] [phone] 03/29/2025 9:00 AM EST P[place] Att[place] [facility] [place] [facility] [address] [place] [phone] 04/01/2025 9:00 AM EST [place] [facility] [place] [facility] [address] [place] [phone] 04/02/2025 9:00 AM EST [place] [facility] [place] [facility] [address] [place] [phone] 04/03/2025 10:30 AM EST PACE Home Care / [place] [facility] [place] [facility] [address] [place] [phone] Leonides Lopez 04/04/2025 9:00 AM EST [place] Att[place] [facility] [place] [facility] [address] [place] [phone] 04/04/2025 2:00 PM EST PACE Home Care / [place] [facility] [place] [facility] [address] [place] [address] Chanell Marcos 04/05/2025 9:00 AM EST [place] Att[place] [facility] [place] [facility] [facility] [address] [place] [address] 04/08/2025 9:00 AM EST [place] [facility] [place] [facility] [facility] [address] [place] [address] 04/09/2025 9:00 AM EST [place] [facility] [place] [facility] [address] [place] [address] 04/11/2025 9:00 AM EST [place] [facility] [place] [facility] [address] [place] [phone] 04/12/2025 9:00 AM EST [place] [facility] [place] [facility] [address] [place] [phone] 04/15/2025 9:00 AM EST [place] [facility] [place] [facility] [address] [place] [phone] 04/16/2025 9:00 AM EST [place] [facility] [place] [facility] [address] [place] [phone] 04/18/2025 9:00 AM EST [place] Att[place] [facility] [place] [facility] [address] [place] [phone] 04/19/2025 9:00 AM EST [place] Att[place] [facility] [place] [facility] [address] [place] [phone] 04/22/2025 9:00 AM EST PACE Attendance/[facility] [place] [facility] [place] [facility] [address] [place] [phone] 04/23/2025 9:00 AM EST [place] Att[place] [facility] [place] [facility] [address] [place] [address] 04/25/2025 9:00 AM EST [place] Att[place] [facility] [place] [facility] [address] [place] [address] 04/26/2025 9:00 AM EST P[place] Attendance[facility] [facility] [place] [facility] [address] [place] [address] 04/29/2025 9:00 AM EDT [place] Attendance[place] [facility] [place] [facility] [address] [place] [address] 04/30/2025 9:00 AM EDT [place] Attendance[place] [facility] [place] [facility] [address] [place] [address] 05/02/2025 9:00 AM EDT [place]ACE Attendance[facility] [facility] [place] [facility] [address] [place] [address] 05/03/2025 9:00 AM EDT [place] Attendance[facility] [facility] [place] [facility] [address] [place] [phone] 05/06/2025 9:00 AM EDT P[place] Attendance[facility] [facility] [place] [facility] [address] [place] [phone] 05/07/2025 9:00 AM EDT [place] Att[place] [facility] [place] [facility] [address] [place] [address] 05/09/2025 9:00 AM EDT [place] Att[place] [facility] [place] [facility] [address] [place] [address] 05/10/2025 9:00 AM EDT [place] Att[place] [facility] [place] [facility] [facility] [address] [place] [address] 05/13/2025 9:00 AM EDT [place] Att[place] [facility] [place] [facility] [facility] [address] [place] [address] 05/14/2025 9:00 AM EDT [place] Att[place]ance[facility] [facility] [place] [facility] [address] [place] [address] 05/16/2025 9:00 AM EDT [place] Att[place] [facility] [place] [facility] [address] [place] [address] 05/17/2025 9:00 AM EDT P[place] Att[place] [facility] [place] [facility] [address] [place] [phone] 05/20/2025 9:00 AM EDT P[place] Att[place] [facility] [place] [facility] [address] [place] [phone] 05/21/2025 9:00 AM EDT [place] Att[place] [facility] [place] [facility] [address] [place] [phone] 05/23/2025 9:00 AM EDT [place] [facility] [place] [address] [place] [phone] 05/24/2025 9:00 AM EDT [place] [facility] [place] [facility] [address] [place] [phone] 05/27/2025 9:00 AM EDT [place] [facility] [place] [facility] [address] [place] [phone] 05/28/2025 9:00 AM EDT [place] [facility] [place] [facility] [address] [place] [phone] 05/30/2025 9:00 AM EDT [place] [facility] [place] [facility] [address] [place] [phone] 05/31/2025 9:00 AM EDT [place] Att[place] [facility] [place] [facility] [address] [place] [phone] 06/03/2025 9:00 AM EDT P[place] Att[place] [facility] [place] [facility] [address] [place] [phone] 06/04/2025 9:00 AM EDT [place] Att[place] [facility] [place] [facility] [address] [place] [phone] 06/06/2025 9:00 AM EDT [place] Att[place] [facility] [place] [facility] [address] [place] [phone] 06/07/2025 9:00 AM EDT P[place] Att[place] [facility] [place] [facility] [address] [place] [phone] 06/10/2025 9:00 AM EDT [place] Att[place] [facility] [place] [facility] [address] [place] [phone] 06/11/2025 9:00 AM EDT [place] Att[place] [facility] [place] [facility] [facility] [address] [place] [phone] 06/13/2025 9:00 AM EDT [place] Att[place] [facility] [place] [facility] [address] [place] [phone] 06/14/2025 9:00 AM EDT [place] [facility] [place] [facility] [address] [place] [phone] 06/17/2025 9:00 AM EDT [place] Att[place] [facility] [place] [facility] [address] [place] [phone] 06/18/2025 9:00 AM EDT [place] Att[place] [facility] [place] [facility] [address] [place] [phone] 06/20/2025 9:00 AM EDT [place] Att[place] [facility] [place] [facility] [address] [place] [phone] 06/21/2025 9:00 AM EDT [place] [facility] [place] [facility] [address] [place] [phone] 06/24/2025 9:00 AM EDT [place] [facility] [place] [facility] [address] [place] [phone] 06/25/2025 9:00 AM EDT [place] Att[place] [facility] [place] [facility] [address] [place] [phone] 06/27/2025 9:00 AM EDT [place] Att[place] [facility] [place] [facility] [address] [place] [phone] 06/28/2025 9:00 AM EDT [place] Att[place] [facility] [place] [facility] [address] [place] [phone] 07/01/2025 9:00 AM EDT [place] Att[place] [facility] [place] [facility] [address] [place] [phone] 07/02/2025 9:00 AM EDT P[place] Att[place] [facility] [place] [facility] [address] [place] [phone] 07/04/2025 9:00 AM EDT [place] Att[place] [facility] [place] [facility] [address] [place] [phone] 07/05/2025 9:00 AM EDT [place] Att[place] [facility] [place] [facility] [address] [place] [phone] 07/08/2025 9:00 AM EDT [place] [facility] [place] [facility] [address] [place] [phone] 07/09/2025 9:00 AM EDT [place] Att[facility] [facility] [place] [facility] [address] [place] [phone] 07/11/2025 9:00 AM EDT [place] Att[facility] [facility] [place] [facility] [facility] [address] [place] [address] 07/12/2025 9:00 AM EDT [place] Att[facility] [facility] [place] [facility] [address] [place] [address] 07/15/2025 9:00 AM EDT [place] Att[place] [facility] [place] [facility] [address] [place] [phone] 07/16/2025 9:00 AM EDT [place] Att[place] [facility] [place] [facility] [address] [place] [phone] 07/18/2025 9:00 AM EDT P[place] Att[place] [facility] [place] [facility] [address] [place] [phone] 07/19/2025 9:00 AM EDT P[place] [facility] [facility] [place] [facility] [address] [place] [phone] 07/22/2025 9:00 AM EDT P[place] Att[place] [facility] [place] [facility] [address] [place] [phone] 07/23/2025 9:00 AM EDT P[place] Att[place] [facility] [place] [facility] [address] [place] [phone] 07/25/2025 9:00 AM EDT [place] Att[place] [facility] [place] [facility] [address] [place] [phone] 07/26/2025 9:00 AM EDT [place] Att[place] [facility] [place] [facility] [address] [place] [phone] 07/29/2025 9:00 AM EDT [place] [facility] [place] [facility] [address] [place] [phone] 07/30/2025 9:00 AM EDT [place] Att[facility] [facility] [place] [facility] [address] [place] [address] 08/01/2025 9:00 AM EDT [place] Att[place] [facility] [place] [facility] [address] [place] [phone] 08/02/2025 9:00 AM EDT [place] Att[facility] [facility] [place] [facility] [address] [place] [address] 08/05/2025 9:00 AM EDT [place] Att[place] [facility] [place] [facility] [address] [place] [phone] 08/06/2025 9:00 AM EDT P[place] Att[place] [facility] [place] [facility] [address] [place] [phone] 08/08/2025 9:00 AM EDT P[place] Att[place] [facility] [place] [facility] [address] [place] [phone] 08/09/2025 9:00 AM EDT [facility] Att[facility] [facility] [place] [facility] [address] [place] [phone] 08/12/2025 9:00 AM EDT P[place] Att[place] [facility] [place] [facility] [address] [place] [phone] 08/13/2025 9:00 AM EDT [place] Att[place] [facility] [place] [facility] [address] [place] [phone] 08/15/2025 9:00 AM EDT [place] Att[place] [facility] [place] [facility] [address] [place] [phone] 08/16/2025 9:00 AM EDT [place] Att[place] [facility] [place] [facility] [address] [place] [phone] 08/19/2025 9:00 AM EDT [place] Att[place] [facility] [place] [facility] [address] [place] [address] 08/20/2025 9:00 AM EDT [place] [facility] [place] [facility] [address] [place] [address] 08/22/2025 9:00 AM EDT [place] Att[place] [facility] [place] [facility] [address] [place] [address] 08/23/2025 9:00 AM EDT [facility] Att[place] [facility] [place] [facility] [address] [place] [address] 08/26/2025 9:00 AM EDT [place] Att[place] [facility] [place] [facility] [address] [place] [phone] 08/27/2025 9:00 AM EDT P[place] Att[place] [facility] [place] [facility] [address] [place] [address] 08/29/2025 9:00 AM EDT P[place] [facility] [place] [facility] [address] [place] [phone] 08/30/2025 9:00 AM EDT [place] [facility] [place] [facility] [address] [place] [phone] 09/02/2025 9:00 AM EDT P[place] Att[place] [facility] [place] [facility] [address] [place] [address] 09/03/2025 9:00 AM EDT [place] Att[place] [facility] [place] [facility] [address] [place] [address] 09/05/2025 9:00 AM EDT P[place] Att[place] [facility] [place] [facility] [address] [place] [phone] 09/06/2025 9:00 AM EDT PACE Attendance/Day Center [facility] [place] [address] [place] [phone] 09/09/2025 9:00 AM EDT [facility] Day [address] [phone] 09/10/2025 9:00 AM EDT PACE Attendance/Day Center [facility] Day [address] [phone] 09/12/2025 9:00 AM EDT PACE Attendance/Day Center [facility] Day [address] [address] documented as of this encounter Visit Diagnoses Not on filedocumented in this encounter Care Teams Records Analysis Manager Relationship Specialty Start Date End Date Florentin Travis NP [address] [address] PCP - General 12/27/23 documented as of this encounter
--- OUTSIDE RECORDS SUMMARY | 2025-02-05 18:52 | XMS_ITS ---
Author Organization [facility] Address [address] [place] [address] Phone Care Team Providers Care Hazard Waste Handler Name Role Phone Florentin Travis NP Primary Care Provider [phone] [facility] Status:Enrolled (Active) Start date:04/21/2024 Related program episode:Program of All-Inclusive Care for the Elderly (Active) Case Team Name Relationship Phone Florentin Travis DENITRATOR OPERATOR(Responsible Staff) Nurse Practiti ximena [phone] Continued Care and Services Coordination
--- OUTSIDE RECORDS SUMMARY | 2025-02-05 18:52 | XMS_ITS | Encounter Summary ---
Author Organization [facility] Address [address] [place] [address] Care Team Providers Care Liquid Sugar Melter Name Role Phone Florentin Travis NP Primary Care Provider [phone] Reason for Visit * Reason Onset Date Comments Clinical 11/27/2024 Par called to re port he had taken a Flexeril muscle relaxer approx 2 hours ago and continues to have neck pain. Informed par to give some time for medication to work. Par inquired if he could take another one. Informed par the order is for up to 3 times per day as needed and he could take another pill. Instructed par to try to take medication at least 6-8 hrs apart. Verbalized understanding. Encounter Details Date Type Department Care Team ([facility] st Contact Info) Description 11/27/2024 PACE On-Call [facility] [address] [place] [address] Florentin Travis NP [address] [id number] Social History Tobacco Use Types Packs/Day Years [...] AM EST documented as of this encounter Progress Notes * Romina Grijalva RN - 11/28/2024 8:35 AM EDT 11/28/24 IDT aware. PCP to follow up. documented in this encounter Plan of Treatment Upcoming Encounters Date Type Department Care Team (Late st Contact Info) Description 02/06/2025 10:30 AM EST PACE Home Care / [place] [facility] [place] [facility] [address] [place] [phone] Leonides Lopez 02/07/2025 9:00 AM EST [facility] [place] [facility] [place] [facility] [address] [place] [phone] 02/08/2025 9:00 AM EST [place] [facility] [place] [facility] [address] [place] [phone] 02/11/2025 9:00 AM EST [place] [facility] [place] [facility] [address] [place] [phone] 02/12/2025 9:00 AM EST [place] [facility] [place] [facility] [address] [place] [phone] 02/13/2025 10:30 AM EST PACE Home Care / [facility] [place] [facility] [place] [facility] [address] [place] [phone] Leonides Lopez 02/14/2025 9:00 AM EST [facility] [place] [facility] [place] [facility] [address] [place] [phone] 02/15/2025 9:00 AM EST [place] [facility] [place] [facility] [address] [place] [phone] 02/18/2025 9:00 AM EST [facility] [place] [facility] [place] [facility] [address] [place] [phone] 02/19/2025 9:00 AM EST [place] [facility] [place] [facility] [address] [place] [address] 02/20/2025 10:30 AM EST PACE Home Care / [place] [place] [facility] [place] [facility] [address] [place] [address] Leonides Lopez 02/21/2025 9:00 AM EST [place] [place] [facility] [place] [facility] [address] [place] [address] 02/21/2025 2:00 PM EST PACE Home Care / [place] [facility] [place] [facility] [address] [place] [address] Chanell Marcos 02/22/2025 9:00 AM EST [place] [facility] [place] [facility] [address] [place] [address] 02/25/2025 9:00 AM EST [place] [facility] [place] [facility] [address] [place] [address] 02/26/2025 9:00 AM EST [place] [facility] [place] [facility] [address] [place] [address] 02/27/2025 10:30 AM EST P[facility] Home [facility] / [place] [facility] [place] [facility] [address] [place] [phone] Leonides Lopez 02/28/2025 9:00 AM EST [facility] [facility] [place] [facility] [address] [place] [address] 03/01/2025 9:00 AM EST [place] [facility] [place] [facility] [facility] [address] [place] [phone] 03/04/2025 9:00 AM EST [facility] [place] [facility] [address] [place] [phone] 03/05/2025 9:00 AM EST [place] [facility] [place] [facility] [address] [place] [address] 03/06/2025 10:30 AM EST PACE Home Care / [place] [facility] [place] [facility] [address] [place] [phone] Leonides Lopez 03/07/2025 9:00 AM EST [place] [facility] [place] [facility] [address] [place] [address] 03/07/2025 1:00 PM EST Clinical Support [facility] [place] [address] [place] [phone] 03/08/2025 9:00 AM EST [place] [facility] [place] [facility] [address] [place] [phone] 03/11/2025 9:00 AM EST [place] [facility] [place] [facility] [address] [place] [phone] 03/12/2025 9:00 AM EST [place] [facility] [place] [facility] [address] [place] [phone] 03/13/2025 10:30 AM EST PACE Home Care / [place] [facility] [place] [facility] [address] [place] [phone] Leonides Lopez 03/14/2025 9:00 AM EST [place] [facility] [place] [facility] [address] [place] [phone] 03/14/2025 2:00 PM EST PACE Home Care / [place] [facility] [place] [facility] [address] [place] [phone] Chanell Marcos 03/15/2025 9:00 AM EST [place] [facility] [place] [facility] [address] [place] [address] 03/18/2025 9:00 AM EST [place] [facility] [place] [address] [place] [phone] 03/19/2025 9:00 AM EST [place] [facility] [place] [facility] [address] [place] [phone] 03/20/2025 10:30 AM EST [facility] [address] [place] [phone] Leonides Lopez 03/21/2025 9:00 AM EST [place] [facility] [place] [facility] [facility] [address] [place] [phone] 03/22/2025 9:00 AM EST [place] [facility] [place] [facility] [address] [place] [phone] 03/25/2025 9:00 AM EST [place] [facility] [place] [facility] [facility] [address] [place] [phone] 03/26/2025 9:00 AM EST [place] [facility] [place] [facility] [address] [place] [phone] 03/27/2025 10:30 AM EST [facility] [place] [facility] [address] [place] [phone] Leonides Lopez 03/28/2025 9:00 AM EST [place] [facility] [place] [facility] [address] [place] [phone] 03/29/2025 9:00 AM EST [place] [facility] [place] [facility] [address] [place] [phone] 04/01/2025 9:00 AM EST [place] [facility] [place] [facility] [facility] [address] [place] [address] 04/02/2025 9:00 AM EST [place] [facility] [place] [facility] [address] [place] [address] 04/03/2025 10:30 AM EST PACE Home Care / [place] [facility] [place] [facility] [address] [place] [phone] Leonides Lopez 04/04/2025 9:00 AM EST [place] [facility] [place] [facility] [facility] [address] [place] [phone] 04/04/2025 2:00 PM EST PACE Home Care / [place] [facility] [place] [facility] [address] [place] [phone] Chanell Marcos 04/05/2025 9:00 AM EST [place] [facility] [place] [facility] [address] [place] [phone] 04/08/2025 9:00 AM EST [place] [facility] [place] [facility] [address] [place] [phone] 04/09/2025 9:00 AM EST [place] [facility] [place] [facility] [address] [place] [phone] 04/11/2025 9:00 AM EST P[facility] Attend[facility] [place] [address] [place] [phone] 04/12/2025 9:00 AM EST P[facility] Att[facility] [place] [facility] [address] [place] [phone] 04/15/2025 9:00 AM EST P[facility] Attendance[facility] [place] [address] [place] [phone] 04/16/2025 9:00 AM EST [place] [facility] [place] [facility] [facility] [address] [place] [address] 04/18/2025 9:00 AM EST [place] [facility] [place] [facility] [address] [place] [phone] 04/19/2025 9:00 AM EST [place] [facility] [place] [facility] [address] [place] [phone] 04/22/2025 9:00 AM EST [place] [facility] [place] [facility] [address] [place] [phone] 04/23/2025 9:00 AM EST [place] [facility] [place] [facility] [address] [place] [phone] 04/25/2025 9:00 AM EST [place] [facility] [place] [facility] [address] [place] [phone] 04/26/2025 9:00 AM EST [place] [facility] [place] [facility] [address] [place] [phone] 04/29/2025 9:00 AM EDT [place] [facility] [place] [facility] [address] [place] [phone] 04/30/2025 9:00 AM EDT [place] [facility] [place] [facility] [address] [place] [phone] 05/02/2025 9:00 AM EDT [place] [facility] [place] [facility] [address] [place] [phone] 05/03/2025 9:00 AM EDT [place] [facility] [place] [facility] [address] [place] [phone] 05/06/2025 9:00 AM EDT [facility] Att[place] [facility] [place] [facility] [address] [place] [address] 05/07/2025 9:00 AM EDT [place] [facility] [place] [facility] [address] [place] [address] 05/09/2025 9:00 AM EDT [place] [facility] [place] [facility] [address] [place] [phone] 05/10/2025 9:00 AM EDT [place] [facility] [place] [facility] [address] [place] [phone] 05/13/2025 9:00 AM EDT [place] [facility] [place] [facility] [address] [place] [phone] 05/14/2025 9:00 AM EDT [place] [facility] [place] [facility] [address] [place] [phone] 05/16/2025 9:00 AM EDT [place] [facility] [place] [facility] [address] [place] [phone] 05/17/2025 9:00 AM EDT [place] [facility] [place] [facility] [address] [place] [phone] 05/20/2025 9:00 AM EDT [place] [facility] [place] [facility] [address] [place] [address] 05/21/2025 9:00 AM EDT [place] [facility] [place] [facility] [address] [place] [phone] 05/23/2025 9:00 AM EDT [place] [facility] [place] [facility] [address] [place] [address] 05/24/2025 9:00 AM EDT [place] [facility] [place] [facility] [address] [place] [phone] 05/27/2025 9:00 AM EDT [place] [facility] [place] [facility] [address] [place] [phone] 05/28/2025 9:00 AM EDT [place] Att[place] [facility] [place] [facility] [address] [place] [phone] 05/30/2025 9:00 AM EDT [place] Att[place] [facility] [place] [facility] [address] [place] [phone] 05/31/2025 9:00 AM EDT [place] [facility] [place] [facility] [address] [place] [phone] 06/03/2025 9:00 AM EDT [place] [facility] [place] [facility] [address] [place] [phone] 06/04/2025 9:00 AM EDT [place] [facility] [place] [facility] [address] [place] [phone] 06/06/2025 9:00 AM EDT [place] [facility] [place] [facility] [address] [place] [phone] 06/07/2025 9:00 AM EDT [place] [facility] [place] [facility] [address] [place] [phone] 06/10/2025 9:00 AM EDT [place] [facility] [place] [facility] [address] [place] [phone] 06/11/2025 9:00 AM EDT [place] [facility] [place] [facility] [address] [place] [phone] 06/13/2025 9:00 AM EDT [place] [facility] [place] [facility] [address] [place] [phone] 06/14/2025 9:00 AM EDT [place] [facility] [place] [facility] [address] [place] [phone] 06/17/2025 9:00 AM EDT [place] [facility] [place] [facility] [address] [place] [address] 06/18/2025 9:00 AM EDT [place] [facility] [place] [facility] [address] [place] [phone] 06/20/2025 9:00 AM EDT [place] [facility] [place] [facility] [address] [place] [phone] 06/21/2025 9:00 AM EDT [place] [facility] [place] [facility] [address] [place] [phone] 06/24/2025 9:00 AM EDT [place] [facility] [place] [facility] [address] [place] [phone] 06/25/2025 9:00 AM EDT [place] [facility] [place] [facility] [address] [place] [phone] 06/27/2025 9:00 AM EDT [place] [facility] [place] [facility] [address] [place] [phone] 06/28/2025 9:00 AM EDT [place] [facility] [place] [facility] [address] [place] [phone] 07/01/2025 9:00 AM EDT [place] [facility] [place] [facility] [address] [place] [phone] 07/02/2025 9:00 AM EDT [place] [facility] [place] [facility] [address] [place] [address] 07/04/2025 9:00 AM EDT [facility] [facility] [place] [facility] [address] [place] [phone] 07/05/2025 9:00 AM EDT [facility] [facility] [place] [facility] [address] [place] [phone] 07/08/2025 9:00 AM EDT [facility] [facility] [place] [facility] [address] [place] [phone] 07/09/2025 9:00 AM EDT [facility] [facility] [place] [facility] [address] [place] [phone] 07/11/2025 9:00 AM EDT [facility] [place] [facility] [address] [place] [phone] 07/12/2025 9:00 AM EDT [facility] [facility] [place] [facility] [address] [place] [phone] 07/15/2025 9:00 AM EDT [place] [facility] [place] [facility] [address] [place] [phone] 07/16/2025 9:00 AM EDT [facility] [facility] [place] [facility] [address] [place] [phone] 07/18/2025 9:00 AM EDT [facility] [facility] [place] [facility] [address] [place] [phone] 07/19/2025 9:00 AM EDT [place] [facility] [place] [facility] [address] [place] [phone] 07/22/2025 9:00 AM EDT [facility] [place] [facility] [address] [place] [phone] 07/23/2025 9:00 AM EDT [facility] [facility] [place] [facility] [address] [place] [phone] 07/25/2025 9:00 AM EDT [facility] [facility] [facility] [place] [facility] [address] [place] [address] 07/26/2025 9:00 AM EDT [facility] [facility] [place] [facility] [address] [place] [phone] 07/29/2025 9:00 AM EDT [facility] [facility] [place] [facility] [address] [place] [phone] 07/30/2025 9:00 AM EDT [facility] [facility] [place] [facility] [address] [place] [phone] 08/01/2025 9:00 AM EDT [facility] [facility] [place] [facility] [address] [place] [phone] 08/02/2025 9:00 AM EDT [place] [facility] [place] [facility] [address] [place] [phone] 08/05/2025 9:00 AM EDT [facility] [facility] [place] [facility] [address] [place] [address] 08/06/2025 9:00 AM EDT [facility] [facility] [place] [facility] [address] [place] [phone] 08/08/2025 9:00 AM EDT [facility] [facility] [place] [facility] [address] [place] [address] 08/09/2025 9:00 AM EDT PACE Attendance[facility] [place] [facility] [address] [place] [phone] 08/12/2025 9:00 AM EDT [facility] [facility] [place] [facility] [address] [place] [phone] 08/13/2025 9:00 AM EDT [facility] [facility] [place] [facility] [address] [place] [phone] 08/15/2025 9:00 AM EDT [facility] [facility] [place] [facility] [address] [place] [address] 08/16/2025 9:00 AM EDT [facility] [facility] [place] [facility] [address] [place] [phone] 08/19/2025 9:00 AM EDT [facility] [facility] [place] [facility] [address] [place] [phone] 08/20/2025 9:00 AM EDT [facility] [facility] [place] [facility] [address] [place] [phone] 08/22/2025 9:00 AM EDT [facility] [facility] [place] [facility] [address] [place] [phone] 08/23/2025 9:00 AM EDT [facility] [facility] [place] [facility] [address] [place] [phone] 08/26/2025 9:00 AM EDT [facility] [facility] [place] [facility] [address] [place] [phone] 08/27/2025 9:00 AM EDT [facility] [facility] [place] [facility] [address] [place] [phone] 08/29/2025 9:00 AM EDT [facility] [facility] [place] [facility] [address] [place] [phone] 08/30/2025 9:00 AM EDT [facility] [facility] [place] [facility] [address] [place] [phone] 09/02/2025 9:00 AM EDT [facility] [facility] [facility] [place] [facility] [address] [place] [phone] 09/03/2025 9:00 AM EDT [facility] [facility] [place] [facility] [address] [place] [phone] 09/05/2025 9:00 AM EDT [facility] [facility] [place] [facility] [address] [place] [phone] 09/06/2025 9:00 AM EDT [facility] [facility] [place] [facility] [address] [place] [phone] 09/09/2025 9:00 AM EDT [facility] [facility] [place] [facility] [address] [place] [phone] 09/10/2025 9:00 AM EDT [facility] [facility] [place] [facility] [address] [place] [phone] 09/12/2025 9:00 AM EDT [facility] [facility] [place] [facility] [address] [place] [phone] documented as of this encounter Visit Diagnoses Not on filedocumented in this encounter Care Teams Liquid Sugar Melter Relationship Specialty Start Date End Date Florentin Travis NP [address] [place] [phone] PCP - General 12/27/23 documented as of this encounter
--- OUTSIDE RECORDS SUMMARY | 2025-02-05 18:52 | XMS_ITS ---
Author Organization [facility] Address [address] [place] [address] Phone Care Team Providers Care Air Saw Operator Name Role Phone Florentin Travis FIRE TRUCK DRIVER Primary Care Provider [phone] [facility] Status:Enrolled (Active) Start date:01/22/2016 Enrollment date:01/22/2016 Related social drivers of health:Housing Instability, Financial Risk, Transportation, Social Isolation, Food Risk Related service episodes:[facility] (Active) Overview This episode will track PACE documentation. Case Team Name Relationship Phone Florentin Travis FIRE TRUCK DRIVER Nurse Practitioner [phone] Pradeep Boggs Recreational Therapist Micaela Shin RN Optician Clarissa Mejias RN Optician Penelope Alvarez WAX BLEACHER Basket Person Edgar Dailey OT Occupational Therapist Darío Khoury RN Registered Nurse Tiffanie Boyce RD Dietitian Corey Anderson PT Physical Therapist David Kwok UPPER AND BOTTOM LACER HAND Powdered Metal Supervisor Chinyere Desir RN Optician Tracey Santiago RN Registered Nurse Christine Almodovar Powdered Metal Supervisor Alba Marcano [facility] Powdered Metal Supervisor Thomas Mcgrath Spiritual Care Gabriela Dickerson PT Physical Therapist Daniela Casanova OT Occupational Therapist Jayna VAZQUEZW Powdered Metal Supervisor Sharan Kyle PT Physical Therapist Philomena Cui MD Primary Care Provider [phone] Continued Care and Services Coordination
--- OUTSIDE RECORDS SUMMARY | 2025-02-05 18:52 | XMS_ITS | Clinical Summary ---
Author Organization [facility] Address [address] [place] [address] Phone Care Team Providers Care Hospice Care Consultant Name Role Phone Florentin Travis NP Primary Care Provider [phone] Allergies Active Allergy Reactions Criticality Noted Date Comments Bee Venom Protein (Honey Bee) 2017 Bees [Bee Stings] Medications amLODIPine-benaz epril (LotreL) 5-10 mg per capsuleIndicatio ns:Primary hypertension Take 1 capsule by mouth 1 (one) time each day. 30 capsule 5 12/29/19 26 Active calcium-magnesiu m-zinc [id number] mg tabletIndication s:Encounter for herb and vitamin supplement management Take 1 tablet by mouth 1 (one) time each day. 30 each 5 12/29/19 26 Active cholecalciferol (Vitamin D3) 50 mcg (2,000 unit) tabletIndication s:Vitamin D deficiency Take 1 tablet (2,000 Units total) by mouth 1 (one) time each day. 1 tab(s) orally once a day 30 tablet 5 12/29/19 26 Active famotidine (Pepcid AC) 10 mg tabletIndication s:Gastroesophage al reflux disease without esophagitis Take 1 tablet (10 mg total) by mouth 1 (one) time each day. 30 tablet 11 5 12/29/19 26 Active tamsulosin (FLOMAX) 0.4 mg 24 hr capsuleIndicatio ns:Benign prostatic hyperplasia with incomplete bladder emptying Take 1 capsule (0.4 mg total) by mouth 1 (one) time each day. Capsules should be taken 30 minutes following the same meal each day. 30 each 11 5 12/29/19 26 Active risperiDONE (RisperDAL) 1 mg tabletIndication s:cristian associated with bipolar disorder,obsessi ve-compulsive disorder Take 1 tablet (1 mg total) by mouth 2 (two) times a day. 60 each 11 5 12/29/19 26 Active simvastatin (ZOCOR) 10 mg tabletIndication s:Elevated lipoprotein(a) Take 1 tablet (10 mg total) by mouth at bedtime. 30 each 11 5 12/29/19 26 Active cyclobenzaprine (FLEXERIL) 5 mg tabletIndication s:Occipital neuralgia of right side,Cervical dystonia Take 1 tablet (5 mg total) by mouth 3 (three) times a day if needed for muscle spasms. 30 tablet 2 5 09/16/19 26 Active LORazepam (ATIVAN) 1 mg tabletIndication s:Bipolar disorder in partial remission, most recent episode unspecified type (CMS/HCC V24),Anxiety,Mix ed obsessional thoughts and acts Take 1 tablet (1 mg total) by mouth 3 (three) times a day. Max Daily Amount: 3 mg 90 tablet 3 5 10/03/19 26 Active LORazepam (ATIVAN) 1 mg tabletIndication s:Bipolar disorder in partial remission, most recent episode unspecified type (CMS/HCC V24),Anxiety,Mix ed obsessional thoughts and acts Take 1 tablet (1 mg total) by mouth 3 (three) times a day. Max Daily Amount: 3 mg 90 tablet 3 5 02/05/20 25 Discontin ued(Reord er) cyclobenzaprine (FLEXERIL) 5 mg tabletIndication s:Occipital neuralgia of right side,Cervical dystonia Take 1 tablet (5 mg total) by mouth 3 (three) times a day if needed for muscle spasms. 30 tablet 2 5 01/19/20 25 Discontin ued(Reord er) Active Problems Problem Noted Date Diagnosed Date Encounter for health maintenance examination Assessment & Plan (01/03/2025 8:55 AM EST): Colon Cancer Screening with FIT testing resulted on 01/02/2025 resulted NEGATIVE. Plan is to repeat FIT testing annually. Sebaceous hyperplasia of face 09/26/2024 Assessment & Plan (12/28/2024 12:31 PM EST): Referral for derm order entered. Will CTM. Assessment & Plan (09/26/2024 12:16 PM EDT): On his right cheek/preauricular area There is a singular 0.5 X 0.75 cm raised papule with some dried skin half peeled away, revealing a pink area, almost round, edges are symmetric. Plan: Add image to chart and refer to dermatology for confirmation and rule out squamous cell carcinoma. Cervical dystonia 09/26/2024 Assessment & Plan (12/28/2024 11:44 AM EST): Jonathan has no complaints of this issue since starting flexeril, will CTM. Assessment & Plan (11/12/2024 12:56 PM EDT): Jonathan has been experiencing involuntary head jerking to his right and up for a significant amount of time. Jonathan agreed to try a soft-collar. Applied soft collar in clinic today. Initially Allen said if made his neck feel better but after 10 minutes he said it is worse because his neck was still trying to move but the collar was blocking. He did not want to take the collar home. He agreed to a referral for Botox injections: Cervical dystonia, also referred to as spasmodic torticollis, is the most frequent form of adult-onset focal dystonia seen in neurological practice. It is characterized by involuntary contractions in a specific set of muscles causing abnormal, sustained and frequently painful postures of the head, neck and shoulders. Intramuscular injection of botulinum toxin (BoNT) into selected muscles is currently considered the treatment of first choice. This has been confirmed by numerous short- and long-term clinical studies, which have established high-quality class I and II evidence (level A recommendation by the [place] [employer]) that both BoNT-A and BoNT-B are safe and effective treatment options for cervical dystonia . Plan: Neurology referral for therapeutic injection of Botox for Cervical Dystonia ordered, will CTM. Assessment & Plan (09/26/2024 12:39 PM EDT): Jonathan is on Olanzapine 5mg PO QHS and Lorazepam 1 mg PO TID for anxiety, bipolar disorder and Major depressive disorder, recurrent, severe with psychotic features. He has been on ativan for a number of years for these disorders. ML provider attempted to replace Ativan with Olanzapine and Allen developed worsening symptoms. Currently he is stable with the only complaint being his chronic involuntary head movements that he states don't cause him any pain and when he is tired and relaxed it seems to go away, like when lying down for sleep or napping in his reclining chair. Plan: Discussed possible additional medications and listed the possible side effect, e.g. anticholinergic medications: diarrhea, constipation, unsteadiness/dizziness on his feet, etc. Jonathan stated he does not want to start any new medications and the movements are tolerable. This provider will continue research alternatives, possible referral to [facility] if Jonathan agrees. Biliary colic symptom 08/27/2024 Assessment & Plan (12/28/2024 12:35 PM EST): Jonathan denies any issues with biliary colic, last US showed: US Gall Bladder - 03/06/23 - 0810 Report Status:Signed PROCEDURE: US Gall Bladder INDICATION: Right upper quadrant pain TECHNIQUE: 2-D messina scale, color Doppler ultrasound of the abdomen. COMPARISON: 04/01/2022 FINDINGS: Visualized portions of the pancreas are within normal limits. Hepatic steatosis. No focal liver lesions. Normal directional flow within the main portal vein. Right kidney measures 9.9 cm in length and is normal. Distended gallbladder with cholelithiasis. No gallbladder wall thickening or pericholecystic fluid. Sonographic River sign is negative. No biliary duct dilatation. Common bile duct measures 5 mm. No ascites. Visualized portions of aorta and IVC are normal. IMPRESSION: CHOLELITHIASIS WITHOUT SPECIFIC EVIDENCE OF CHOLECYSTITIS. Will CTM. Assessment & Plan (08/27/2024 8:53 AM EDT): Reported over the weekend on 08/23/24: Sister Chanell mathew noted jonathan had a gall bladder attack/ abdominal pain . Reports poor diet, eating a lot of kielbasa sandwiches for last 2 months. Stopped eating chicken and salad with olive oil. Eating low fat yogurt with Cheerios and banana, sister suspects high sugar yogurt, notes fatty liver. Not drinking enough water per sister. She is 2 hours away and helping by phone. Sister offered to come get him for the holiday but he declined. Noted enjoyed meeting with Truck Assembler as jonathan is very spiritual feels God will save him and does not have to take care of himself she encouraged him to call Truck Assembler but he said no although he would like another visit. Moni girl INTERVENTIONAL TECHNOLOGIST that does his groceries per his shopping list but sister feels list is not healthy. Reassured sister this RD will f/u with par as well as pass message along to Truck Assembler and provider. This provider will continue to monitor. Seasonal allergic conjunctivitis 03/12/2024 Assessment & Plan (12/28/2024 11:45 AM EST): Chronic, intermittent, no complaints at this time, will CTM. Assessment & Plan (07/06/2024 2:03 PM EDT): Chronic intermittent condition, currently stable, will CTM Anxiety 03/12/2024 Assessment & Plan (12/28/2024 12:34 PM EST): Par denies any feelings of anxiety, reports it is well controlled on medication, GAD7 score of 0. Par reports no longer speaking to therapist, sts it doesn't help me to keep talking about the same thing over and over. Will CTM. Assessment & Plan (07/06/2024 2:59 PM EDT): Par is doing well with current therapy, he is w/o any complaints of increased anxiety, SI/HI. Will continue current therapy and CTM. Benign prostatic hyperplasia with lower urinary tract symptoms 03/12/2024 Assessment & Plan (12/28/2024 12:26 PM EST): Par is w/o complaints of urinary hesitancy, incomplete emptying, will continue tamsulosin, PSA drawn and pending at time of visit today. Assessment & Plan (07/06/2024 2:35 PM EDT): Jonathan is w/o complaints of urinary hesitancy, incomplete emptying, will continue tamsulosin and CTM Bipolar disorder 03/12/2024 Assessment & Plan (12/28/2024 12:38 PM EST): Jonathan was c/o symptoms of tardive Dyskinesia on olanzapine, par titrated off and Risperdal initiated per jonathan's sister's request, as she reports he was on Risperdal with no issues in the past, jonathan reports he has had no signs/symptoms of tardive dyskinesia since stopping olanzapine. Will CTM. Assessment & Plan (07/06/2024 3:04 PM EDT): Chronic condition, current on olanzapine; stable, will continue current therapy and monitor. Assessment & Plan (05/07/2024 1:50 PM EDT): Brief psychotic episode d/t change in Jonathan's medications. Medications have been restarted and Par is back to baseline. Major depressive disorder, r ecurrent, severe with psychotic features 03/12/2024 Assessment & Plan (12/28/2024 12:40 PM EST): PHQ-2 score of 0, par reports depression well controlled on medications. Assessment & Plan (07/06/2024 3:05 PM EDT): Bipolar depression; controlled with olanzapine and risperidone, will continue current therapy and monitor. Stage 3a chronic kidney disease (CKD) 03/12/2024 Overview (07/06/2024): >>OVERVIEW FOR BENIGN HYPERTENSIVE KIDNEY DISEASE WITH CKD (CHRONIC KIDNEY DISEASE) WRITTEN ON 03/12/2024 1:33 PM BY LORETO HOFFMAN Hypertension with CKD Assessment & Plan (12/28/2024 12:29 PM EST): 5 mon ago 8 mon ago Creatinine 1.27 1.44 High eGFR 59 Low 51 Low Last labs as shown above, labs from this encounter are drawn and pending. Will CTM. Assessment & Plan (07/06/2024 2:36 PM EDT): Last labs from 04/28/24 show: Creatinine 0.70 - 1.30 mg/dL 1.44 High eGFR >=60 mL/min/1.73m2 51 Low Labs from this encounter are pending, will CTM Cirrhosis of liver 03/12/2024 Assessment & Plan (12/28/2024 12:22 PM EST): US Liver - 07/07/23 - 1243 Report Status:Signed EXAMINATION: Ultrasound liver. INDICATION: Right upper quadrant pain times one day. History of gallstones. COMPARISON: Gallbladder ultrasound 03/06/2023 FINDINGS: Ultrasound of the liver was obtained. Liver: 17.8 the. The liver is coarsened and mildly echogenic. No solid mass or intrahepatic ductal dilatation. Portal vein is patent with hepatopedal flow. Common bile duct: 0.5 cm Gallbladder: There are multiple echogenic gallstones, sludge without wall thickening. Gallbladder wall thickness is 0.15 cm. No tenderness in the right upper quadrant by ultrasound probe described by senior environmental technician. Right kidney: Right kidney measures 9.6 cm in length. There is normal cortical thickness. No echogenic stones or hydronephrosis seen.. Pancreas: The pancreas partially obscured by overlying gas. Visualized body and head of the pancreas unremarkable. The tail is obscured.. Spleen: The spleen measures 12.2 x 4.3 x 9.4 cm and appears unremarkable. Other: No free fluid seen in the right upper quadrant. IMPRESSION: Cholelithiasis without gallbladder wall thickening or River's sign. Rest of the abdominal ultrasound is unremarkable. Last CMP showed normal liver enzymes, labs drawn and pending today. Par is asymptomatic at time of exam, will CTM. Assessment & Plan (07/06/2024 2:28 PM EDT): Liver US 07/07/2023: Liver: 17.8 the. The liver is coarsened and mildly echogenic. No solid mass or intrahepatic ductal dilatation. Portal vein is patent with hepatopedal flow. F/U Liver US 02/29/2024: IMPRESSION: Impression: 1. No hepatic masses. 2. Normal hepatic Doppler evaluation. 3. No evidence of cholelithiasis or biliary obstruction. 4. Stable borderline splenomegaly. Asymptomatic, labs from this encounter are pending, will CTM Alcohol use disorder in remission 03/12/2024 Assessment & Plan (12/28/2024 12:33 PM EST): Par reports last drink years ago . Assessment & Plan (07/06/2024 3:06 PM EDT): Continues to be in full remission, last drink reported to be over 20 years ago. IVDU (intravenous drug user) 03/12/2024 Overview (03/12/2024): Intravenous Drug (IVD) Use, in remission Assessment & Plan (12/28/2024 12:40 PM EST): Par in full remission will CTM. Assessment & Plan (07/06/2024 3:06 PM EDT): In full remission, will CTM Vitamin D deficiency 03/12/2024 Assessment & Plan (12/28/2024 12:26 PM EST): Continue cholecalciferol. Vitamin d level drawn and pending at time of visit. Assessment & Plan (07/06/2024 2:29 PM EDT): Vit D levels have been WNL, will continue Cholecalciferol 200 units PO QD and CTM Poor dentition 03/12/2024 Assessment & Plan (12/28/2024 12:25 PM EST): Par declines referral to dentistry. Dentition continues to be poor, par given education on preventative therapy. Assessment & Plan (07/06/2024 2:30 PM EDT): Par declined referral to [facility], states he will wait till he needs to go. Counseled Par on preventive therapy, he continued to decline. [place] teeth extracted 03/12/2024 Overview (03/12/2024): Tooth Extraction Assessment & Plan (12/28/2024 12:26 PM EST): Chronic condition, no complaints. Assessment & Plan (07/06/2024 2:31 PM EDT): Chronic, stable GERD (gastroesophageal reflux disease) Assessment & Plan (12/28/2024 12:24 PM EST): Par reports that he has not has symptoms of GERD recently, reports he has learned that he needs to abide by lifestyle modifications such as small frequent meals, low acidity foods, and not lying down after eating in order for him to not have symptoms. Plan: Continue lifestyle mods a& pepcid BID. Assessment & Plan (07/06/2024 2:32 PM EDT): Par stated he gets HB on occasion. He endorsed being non-compliant with sleep hygiene practices. Best practices reviewed in order to prevent GERD symptoms.. Genital herpes 03/12/2024 Assessment & Plan (12/28/2024 12:27 PM EST): Par reports that he has not had a flare in years, asymptomatic, will CTM. Assessment & Plan (07/06/2024 2:37 PM EDT): Chronic condition, stable, will CTM Sensorineural hearing loss (SNHL), bilateral Assessment & Plan (12/28/2024 11:50 AM EST): Par reports I have no issues with my hearing , declines referral to audiology. Assessment & Plan (07/06/2024 2:04 PM EDT): Chronic condition, stable, Par declines referral to audiology Hernia, diaphragmatic 03/12/2024 Assessment & Plan (12/28/2024 11:52 AM EST): Par had a CT WO Contrast 08/2023 shows small hiatal hernia. Par reports intermittent heartburn states I know what I can eat to make it better . Reviewed sleep hygiene practices to include not lying down after eating and not eating at least two hours before bed, par agrees to plan, will CTM and continue Pepcid BID. Assessment & Plan (07/06/2024 2:07 PM EDT): CT WO Contrast 08/2023 shows small hiatal hernia. Par states he gets heart burn symptoms only once in a while. Reviewed sleep hygiene practices to include not lying down after eating and not eating at least two hours before bed. Par states he does not always follow that practice but will keep it in mind, will CTM and continue Pepcid BID. Hyperlipidemia 03/12/2024 Assessment & Plan (12/28/2024 12:32 PM EST): Last lipid level showed increased LDL: 113, educated on lifestyle modifications such as diet and exercise on decreasing LDL, par increased to 10 mg simvastatin nightly, lipid panel drawn and pending. Assessment & Plan (07/06/2024 2:49 PM EDT): Last lipid panel in January 2023 was WNL, repeat labs during this encounter, will continue current STATIN and CTM Insomnia 03/12/2024 Assessment & Plan (12/28/2024 12:39 PM EST): Par reports that insomnia has been an issue for decades . Reports sleeping 6 hours per night. Education given on sleep hygiene. Will CTM. Assessment & Plan (07/06/2024 3:07 PM EDT): Par states he sleeps well most night, occasional difficulty falling asleep after getting up to go to the bathroom, recommended he follow discussed sleep hygiene practices. Pulmonary nodule 03/12/2024 Assessment & Plan (02/05/2025 9:24 AM EST): IMPRESSION: Unchanged left lower lobe nodule measures 0.4 cm. Stability since 2017. No new suspicious mass or nodule. Hiatal hernia -------- FINAL REPORT -------- Dictated By: Vaibhav Andino Dictated Date: 02/05/2025 06:58 ET Stable, will CTM Assessment & Plan (12/28/2024 12:17 PM EST): Findings from Chest CT WO Contrast 03/10/2024 Comparison: 09/08/23 No suspicious pulmonary nodule identified. No significant change. Will continue to monitor with annual surveillance Chest CT. Last CT on 03/10/24, new order entered for this years surveillance, Assessment & Plan (07/06/2024 2:09 PM EDT): History: Solitary pulmonary nodule. Nicotine dependence. Chest CT WO Contrast 03/10/2024 Comparison: 09/08/23 Technique: Helical volumetric imaging of the thorax was performed, using low- dose technique, without IV contrast. DLP: 167.74 mGy/cm prollieer Iterative reconstruction technique Findings: The trachea and central bronchial tree remain patent. Minimal thin curvilinear opacities are seen in the lower lungs, consistent with subsegmental atelectasis, without significant change. A 4 mm solid nodule is again seen in the periphery of the left lower lobe (image 137 series 3), unchanged dating back to the initial, [address] at this institution, considered benign. No suspicious developing pulmonary nodule is seen. No pleural or pericardial effusions are identified. The heart is not enlarged. Minimal atherosclerotic calcification is seen in the aortic arch. No suspicious thyroid nodule is seen. There is no developing thoracic lymphadenopathy. A small portion of the upper abdomen included on the lowest images through the thorax is remarkable for cholelithiasis and a moderate-sized hiatal hernia. A water attenuation 2 cm left renal mass is again noted, most likely a cyst. The regional skeleton is intact. IMPRESSION: Impression: No suspicious pulmonary nodule identified. No significant change. Will continue to monitor with annual surveillance Chest CT. Obesity, class 1 03/12/2024 Assessment & Plan (12/28/2024 12:42 PM EST): Chronic condition par BMI down to 29.99 kg/m2 Education provided on the importance of daily exercise, par reports he only exercises when he feels like it. Assessment & Plan (07/06/2024 3:09 PM EDT): Chronic condition, stable at 32.8 kg/m Body Mass Index (Class 1 obesity), recommended he get outside while the weather is nice walk, play tennis or other free recreational sports. Peripheral vascular disease 03/12/2024 Overview (03/12/2024): Peripheral Vascular Disease - Atherosclerosis of Extremity, Bilateral Assessment & Plan (12/28/2024 11:53 AM EST): On exam, par has no signs of PVD, there are bilateral palpable pedal pulses, no ulcers or wounds noted. Par offered referral to podiatry and declined. Will CTM. Assessment & Plan (07/06/2024 2:25 PM EDT): On exam, feet are w/o any open wounds, hammer toes stable X 8 (2-5 b/l); no hemosiderin staining, hairless legs, w/o evidence of lower extremity edema, bilateral palpable PT pulses, will send to Podiatry for f/u Onychomycosis 03/12/2024 Assessment & Plan (12/28/2024 12:30 PM EST): Chronic condition, par offered podiatry and declined. Assessment & Plan (07/06/2024 2:40 PM EDT): On exam: Onychomycosis/Onychodystrophy present bilaterally on 1st, 2nd toes. Tinea Pedis 2nd toe dermatophyte not present on exam. Stable Hallux Valgus deformity bilaterally, hammer toes 2-5 bilaterally present and stable, Will refer back to [facility] and monitor. Hyperkeratosis 03/12/2024 Overview (03/12/2024): Hyperkeratotic Lesions Assessment & Plan (12/28/2024 12:38 PM EST): Chronic, stable condition bilateral feet, continue current hygiene practices and f/u with [facility] [place]. Assessment & Plan (07/06/2024 3:13 PM EDT): Chronic, stable condition bilateral feet, continue current hygiene practices and f/u with [facility]. Mild cataract 03/12/2024 Overview (03/12/2024): Cataract OU mild, Mixed Assessment & Plan (12/28/2024 11:45 AM EST): Par denies any issues with vision, agrees to see ophthalmology routinely, will CTM. Assessment & Plan (07/06/2024 2:04 PM EDT): Par denies any changes to his vision, agrees to f/u with ophthalmology. Presbyopia 03/12/2024 Assessment & Plan (12/28/2024 12:43 PM EST): Chronic condition, stable with reading glasses, par declines referral to ophthalmology. Assessment & Plan (07/06/2024 3:14 PM EDT): Chronic condition, stable with reading glasses, f/u ophthalmology appointment order, pending scheduling. Chronic viral hepatitis C 03/12/2024 Assessment & Plan (12/28/2024 11:53 AM EST): Par is without any acute complaints, hepatitis panel drawn and pending today. Assessment & Plan (07/06/2024 2:33 PM EDT): HCV RNA testing was negative in January 2023, will retest in the fall of 2024; currently Par is w/o any acute complaints. Resolved Problems Problem Noted Date Diagnosed Date Resolved Date Thrombocytopenia 05/07/2024 07/06/2024 Other specified disorders of bone density and structure, multiple sites 03/12/2024 07/06/2024 Overview (03/12/2024): DEXA: Z13.820, M85.89 Allergic cough 03/12/2024 07/06/2024 Suicidal ideation 03/12/2024 07/06/2024 Colic, biliary 03/12/2024 07/06/2024 Tinea pedis 03/12/2024 07/06/2024 Overview (03/12/2024): Tinea Pedis 2nd to Dermatophyte Encounters Date Type Department Care Team Description 02/05/2025 2:50 PM EST PACE External Visit [facility] [address] [place] [address] 02/01/2025 P[facility] On-Call [address] [phone] Florentin Travis, DISTRIBUTION SALES MANAGER 01/29/2025 2:18 PM EST - 01/29/2025 11:59 PM EST Hospital Encounter [facility] CT Scan [address] [place] [address] Pulmonary nodule Discharge Disposition: Home or Self Care 01/29/2025 11:50 AM EST PACE External Visit [address] [phone] 01/20/2025 [facility] On-Call [address] [phone] Annalise Moody LPN 01/18/[address] [phone] Tracey Santiago RN 01/13/[address] [phone] Florentin Travis, RAMIREZ 01/11/[address] [phone] Claudia Khoury, BRAIN 01/10/2025 2:00 PM EST PACE Home Care / PACE Home Visit [facility] [address] [place] [phone] Chanell Marcos 01/10/[address] [facility]ACE [address] [address] [facility] [address] [phone] Florentin Travis NP 01/08/2025 10:45 AM EST Clinical Support [address] [phone] Tracey Santiago RN Adult general medical examination (Primary Dx) 01/08/[address] [facility] Social Work [address] [place] [phone] Jayna Saha LSW 12/28/2024 10:00 AM EST PACE Assessment [address] [phone] Tracey Santiago RN Adult general medical examination (Primary Dx) 12/28/2024 10:00 AM EST PACE Assessment [address] [phone] Florentin Travis NP Stage 3a chronic kidney disease (CKD) ([facility] - [place] V24, [facility] [place] V28) (Primary Dx); Vitamin D deficiency; Hyperlipidemia, unspecified hyperlipidemia type; Cirrhosis of liver without ascites, unspecified hepatic cirrhosis type ([facility] [place] V24, [facility] [place] V28); Prostate cancer screening; Primary hypertension; Encounter for herb and vitamin supplement management; Gastroesophageal reflux disease without esophagitis; Bipolar disorder in partial remission, most recent episode unspecified type ([facility] [place] V24); Anxiety; Mixed obsessional thoughts and acts; Benign prostatic hyperplasia with incomplete bladder emptying; Bipolar affective disorder in remission ([facility] [place] V24); Major depressive disorder, recurrent, severe with psychotic features ([facility] [place] V24, [facility] [place] V28); Elevated lipoprotein(a); Cervical dystonia; Mild cataract; Seasonal allergic conjunctivitis; Sensorineural hearing loss (SNHL), bilateral; Diaphragmatic hernia without obstruction and without gangrene; Peripheral vascular disease ([facility] [place] V24); Chronic hepatitis C without hepatic coma ([facility] [place] V24, [facility] [place] V28); Pulmonary nodule; Poor dentition; History of third molar tooth extraction, unspecified edentulism class; Genital herpes simplex, unspecified site; Onychomycosis; Sebaceous hyperplasia of face; Alcohol use disorder in remission; Biliary colic symptom; Hyperkeratosis; Insomnia, unspecified type; IVDU (intravenous drug user); Obesity, class 1; Presbyopia 12/24/2024 10:30 AM EST Clinical Support [facility] [place] [facility] [address] [place] [phone] Micaela Shin RN 12/20/2024 2:00 PM EDT PACE Home Care / PACE Home Visit [facility] In Home Nursing and Aide Services [address] [place] [phone] Chanell Marcos 12/13/2024 2:40 PM EDT [facility] Physical Therapy [address] [place] [phone] Sharan Kyle, PT Cervical dystonia (Primary Dx) 12/13/2024 2:30 [address] [facility] Occupational Therapy [address] [place] [phone] Edgar Dailey OT Peripheral vascular disease (CMS/HCC V24) (Primary Dx) 12/06/2024 2:45 PM EDT Treatment [facility] Physical Therapy [address] [place] [phone] Sharan Kyle, PT 12/03/2024 [facility]phone [facility] Physical Therapy [address] [place] [phone] Sharan Kyle, PT 11/29/2024 1:00 PM EDT PACE Home Care / [place] [facility] [place] [facility] [address] [place] [phone] Chanell Marcos 11/28/2024 12:30 PM EDT Clinical Support [facility]ACE [address] [phone] Chinyere Desir RN 11/27/[address] [facility] PACE [address] [phone] Florentin Travis NP 11/12/2024 12:30 PM EDT Office [place] [facility] [place] [facility] [address] [place] [phone] Florentin Travis NP Cervical dystonia (Primary Dx) 11/08/2024 2:30 PM EDT PACE Home Care / [place] [facility] [place] [facility] [address] [place] [phone] Chanell Marcos 11/08/2024 Telephone [facility] [place] [facility] [address] [place] [phone] Tracey Santiago RN 11/07/2024 10:30 AM EDT PACE Home Care / [place] [facility] [place] [facility] [address] [place] [phone] Leonides Lopez from Last 3 Months Immunizations Immunization Administration Dates Next Due Hep B, Unspecified 02/11/2017,09/13/2016, 017 Hepatitis A Adult (Havrix; V aqta) 19yo and older 02/11/2017,02/11/2017 Influenza trivalent, 0.5mL ( Fluad) 65yo and older 01/08/2025(Deferred: Patient decision - Par declines any/all vaccines) Influenza, Unspecified 12/01/2023 [employer] SARS-CoV-2 COVID -19, vector-nr, rS-Ad26, preservative free 08/08/2020 [facility] SARS-CoV-2 COVID-19, mRNA, LNP-S, preservative free 03/31/2021,03/31/2021 Pneumococcal conjugate 13 va lent (Prevnar 13, PCV13) 2mo and older 04/13/2016 Pneumococcal polysaccharide 23 valent (Pneumovax 23) 2yo and older 04/14/2017 Tdap Tetanus diptheria acell ular pertussis (Boostrix; Adacel) 7yo and older 08/04/2017 Medical History Medical History Date Comments GERD (gastroesophageal reflux disease) DX:GERD (gastroesophageal reflux disease) Cirrhosis of liver (CMS/HCC V24, CMS/HCC V28) DX:Cirrhosis of liver (HCC) History of hepatitis C DX:Histor y of hepatitis C Cirrhosis of liver (CMS/HCC V24, CMS/HCC V28) DX:Cirrhosis of liver (HCC) History of smoking Social History Tobacco Use Types Packs/Day Years Used Date Smoking Tobacco: Former Cigarettes Tobacco Cessation:Counseling Given: Not Answered Comments:tob stopped 1982 Alcohol Use Standard Drinks/Week Comments Not Asked 0 (1 standard drink = 0.6 oz pur e alcohol) last drank in 2015 Sex and Gender Information Value Date Recorded Sex Assigned at Male 03/02/2024 10:20 AM EST Legal Sex Male 2:03 PM EST Gender Identity Male 03/02/2024 10:20 AM EST Sexual Orientation Straight 03/02/2024 10 :20 AM EST Last Filed Vital Signs Vital Sign Reading Time Taken Comments Blood Pressure 120/93 12/28/2024 2:44 PM EST Pulse 75 12/28/2024 2:44 PM EST Temperature 36.9 C (98.4 F) 12/28/2024 2:44 PM EST Respiratory Rate 18 12/28/2024 2:44 PM EST Oxygen Saturation 97% 12/28/2024 2:44 PM EST Inhaled Oxygen Concentration - - Weight 94.8 kg (209 lb) 12/28/2024 2:44 PM EST Height 174 cm (5' 8.5 ) 12/28/2024 2:44 PM EST Body Mass Index 31.32 12/28/2024 2:44 PM EST Plan of Treatment Upcoming Encounters Date Type Department Care Team (Late st Contact Info) Description 02/06/2025 10:30 AM EST PACE Home Care / PACE Home Visit [facility] [address] [place] [phone] Leonides Lopez 02/07/2025 9:00 AM EST PACE Attendance/Day Center [facility] [employer] [place] [facility] [address] [place] [address] 02/08/2025 9:00 AM EST PACE Attendance/Day [facility] [employer] [place] [facility] [address] [place] [address] 02/11/2025 9:00 AM EST PACE Attendance/Day [place] [employer] [facility] [place] [facility] [address] [place] [phone] 02/12/2025 9:00 AM EST PACE Attendance[facility] [facility] [place] [facility] [address] [place] [address] 02/13/2025 10:30 AM EST PACE Home Care / [place] [facility] [place] [facility] [address] [place] [address] Leonides Lopez 02/14/2025 9:00 AM EST PACE Attendance[facility] [facility] [place] [facility] [address] [place] [address] 02/15/2025 9:00 AM EST PACE Att[place]ance[place] [facility] [place] [facility] [address] [place] [address] 02/18/2025 9:00 AM EST [place]ACE Att[place]ance[facility] [facility] [place] [facility] [address] [place] [address] 02/19/2025 9:00 AM EST [place]ACE Att[place]ance[place] [facility] [place] [facility] [address] [place] [address] 02/20/2025 10:30 AM EST PACE Home Care / [place] [facility] [place] [facility] [address] [place] [phone] Leonides Lopez 02/21/2025 9:00 AM EST [place]ACE Att[place]ance[facility] [facility] [place] [facility] [address] [place] [address] 02/21/2025 2:00 PM EST PACE Home Care / [place] [facility] [place] [facility] [address] [place] [address] Chanell Marcos 02/22/2025 9:00 AM EST PACE Attendance/Day Center [facility] [address] [place] [address] 02/25/2025 9:00 AM EST PACE Att[place]ance[facility] [facility] [place] [facility] [address] [place] [address] 02/26/2025 9:00 AM EST [place] Att[place] [facility] [place] [facility] [address] [place] [address] 02/27/2025 10:30 AM EST PACE Home Care / [place] [facility] [place] [facility] [address] [place] [address] Leonides Lopez 02/28/2025 9:00 AM EST [place]ACE Att[place]ance[facility] [facility] [place] [facility] [address] [place] [address] 03/01/2025 9:00 AM EST [place]ACE Att[place]ance[facility] [facility] [place] [facility] [address] [place] [phone] 03/04/2025 9:00 AM EST [place] [facility] [place] [facility] [address] [place] [phone] 03/05/2025 9:00 AM EST [place] [facility] [place] [facility] [address] [place] [phone] 03/06/2025 10:30 AM EST PACE Home Care / [place] [facility] [place] [facility] [address] [place] [phone] Leonides Lopez 03/07/2025 9:00 AM EST [place] [place] [facility] [place] [facility] [address] [place] [phone] 03/07/2025 1:00 PM EST Clinical Support [facility] [place] [address] [place] [phone] 03/08/2025 9:00 AM EST PACE Att[place]ance[facility] [facility] [place] [facility] [address] [place] [address] 03/11/2025 9:00 AM EST PACE Attendance/[place] [facility] [place] [facility] [address] [place] [address] 03/12/2025 9:00 AM EST PACE Attendance[facility] [facility] [place] [facility] [address] [place] [address] 03/13/2025 10:30 AM EST PACE Home Care / [place] Home [place] [facility] [place] [facility] [address] [place] [address] Leonides Lopez 03/14/2025 9:00 AM EST [facility] Att[place] [facility] [place] [facility] [address] [place] [phone] 03/14/2025 2:00 PM EST PACE Home Care / [place] [place] [facility] [place] [facility] [address] [place] [phone] Chanell Marcos 03/15/2025 9:00 AM EST [facility]ACE Attendance[facility] [facility] [place] [facility] [address] [place] [phone] 03/18/2025 9:00 AM EST [place] Att[place] [facility] [place] [facility] [address] [place] [phone] 03/19/2025 9:00 AM EST [place] Att[place] [facility] [place] [facility] [address] [place] [phone] 03/20/2025 10:30 AM EST PACE Home Care / [place] Home [place] [facility] [place] [facility] [address] [place] [phone] Leonides Lopez 03/21/2025 9:00 AM EST [facility]ACE Attendance[place] [facility] [place] [facility] [address] [place] [address] 03/22/2025 9:00 AM EST [facility] Att[place] [facility] [place] [facility] [address] [place] [phone] 03/25/2025 9:00 AM EST [facility] Att[place]ance[facility] [facility] [place] [facility] [address] [place] [address] 03/26/2025 9:00 AM EST [place] Att[place] [facility] [place] [facility] [address] [place] [phone] 03/27/2025 10:30 AM EST PACE Home Care / [place] [facility] [place] [facility] [address] [place] [phone] Leonides Lopez 03/28/2025 9:00 AM EST [facility] Att[place]ance[facility] [facility] [place] [facility] [address] [place] [phone] 03/29/2025 9:00 AM EST [facility] Att[place] [facility] [place] [facility] [address] [place] [phone] 04/01/2025 9:00 AM EST [place] Att[place] [facility] [place] [facility] [address] [place] [phone] 04/02/2025 9:00 AM EST [place] [facility] [place] [facility] [address] [place] [phone] 04/03/2025 10:30 AM EST PACE Home Care / [place] [place] [facility] [place] [facility] [address] [place] [phone] Leonides Lopez 04/04/2025 9:00 AM EST [facility] Att[place] [facility] [place] [facility] [address] [place] [phone] 04/04/2025 2:00 PM EST PACE Home Care / [place] [place] [facility] [place] [facility] [address] [place] [phone] Chanell Marcos 04/05/2025 9:00 AM EST [facility] Attendance[facility] [facility] [place] [facility] [address] [place] [address] 04/08/2025 9:00 AM EST [facility] Attendance[facility] [facility] [place] [facility] [address] [place] [address] 04/09/2025 9:00 AM EST [facility] Attendance[facility] [facility] [place] [facility] [address] [place] [address] 04/11/2025 9:00 AM EST [facility] [place] [facility] [place] [facility] [address] [place] [phone] 04/12/2025 9:00 AM EST [facility] Att[place] [facility] [place] [facility] [address] [place] [phone] 04/15/2025 9:00 AM EST [facility] Att[place] [facility] [place] [facility] [address] [place] [phone] 04/16/2025 9:00 AM EST [facility] Att[facility] [facility] [place] [facility] [address] [place] [phone] 04/18/2025 9:00 AM EST [facility] Att[place] [facility] [place] [facility] [address] [place] [phone] 04/19/2025 9:00 AM EST [facility] Att[facility] [facility] [place] [facility] [address] [place] [address] 04/22/2025 9:00 AM EST [facility] Att[facility] [facility] [place] [facility] [address] [place] [address] 04/23/2025 9:00 AM EST [facility] Attendance[facility] [facility] [place] [facility] [address] [place] [address] 04/25/2025 9:00 AM EST [facility] Attendance[facility] [facility] [place] [facility] [address] [place] [address] 04/26/2025 9:00 AM EST [facility] [facility] [place] [facility] [address] [place] [phone] 04/29/2025 9:00 AM EDT [facility] Att[place]ance[facility] [facility] [place] [facility] [address] [place] [phone] 04/30/2025 9:00 AM EDT [facility] Att[place] [facility] [place] [facility] [address] [place] [phone] 05/02/2025 9:00 AM EDT [facility] [facility] [place] [facility] [address] [place] [phone] 05/03/2025 9:00 AM EDT [facility] Att[place] [facility] [place] [facility] [address] [place] [phone] 05/06/2025 9:00 AM EDT [facility] [facility] [place] [facility] [address] [place] [phone] 05/07/2025 9:00 AM EDT [facility] [place] [facility] [place] [facility] [address] [place] [phone] 05/09/2025 9:00 AM EDT [facility] [place] [facility] [address] [place] [phone] 05/10/2025 9:00 AM EDT [facility] Att[place] [facility] [place] [facility] [address] [place] [phone] 05/13/2025 9:00 AM EDT [facility] Att[place] [facility] [place] [facility] [address] [place] [phone] 05/14/2025 9:00 AM EDT [facility] [facility] [place] [facility] [address] [place] [phone] 05/16/2025 9:00 AM EDT [facility] [facility] [place] [facility] [address] [place] [phone] 05/17/2025 9:00 AM EDT PACE Attendance[facility] [place] [facility] [place] [facility] [address] [place] [phone] 05/20/2025 9:00 AM EDT [facility] [facility] [place] [facility] [address] [place] [phone] 05/21/2025 9:00 AM EDT [facility] [facility] [place] [facility] [address] [place] [phone] 05/23/2025 9:00 AM EDT [facility] [facility] [place] [facility] [address] [place] [phone] 05/24/2025 9:00 AM EDT [facility] [facility] [place] [facility] [address] [place] [phone] 05/27/2025 9:00 AM EDT [facility] [facility] [place] [facility] [address] [place] [phone] 05/28/2025 9:00 AM EDT [facility] [facility] [place] [facility] [address] [place] [phone] 05/30/2025 9:00 AM EDT [facility] [facility] [place] [facility] [address] [place] [phone] 05/31/2025 9:00 AM EDT [facility] [facility] [place] [facility] [address] [place] [phone] 06/03/2025 9:00 AM EDT [facility] [facility] [place] [facility] [address] [place] [phone] 06/04/2025 9:00 AM EDT [facility] [facility] [place] [facility] [address] [place] [address] 06/06/2025 9:00 AM EDT [facility] [facility] [place] [facility] [address] [place] [address] 06/07/2025 9:00 AM EDT [facility] [facility] [place] [facility] [address] [place] [address] 06/10/2025 9:00 AM EDT [facility] [facility] [place] [facility] [address] [place] [phone] 06/11/2025 9:00 AM EDT [facility] [facility] [place] [facility] [address] [place] [phone] 06/13/2025 9:00 AM EDT [place] [facility] [place] [facility] [address] [place] [phone] 06/14/2025 9:00 AM EDT [facility] [place] [facility] [address] [place] [phone] 06/17/2025 9:00 AM EDT [place] [facility] [place] [facility] [address] [place] [phone] 06/18/2025 9:00 AM EDT [place] [facility] [place] [facility] [address] [place] [phone] 06/20/2025 9:00 AM EDT [place] [facility] [place] [facility] [address] [place] [phone] 06/21/2025 9:00 AM EDT [place] [facility] [place] [facility] [address] [place] [phone] 06/24/2025 9:00 AM EDT [facility] [facility] [place] [facility] [address] [place] [address] 06/25/2025 9:00 AM EDT [place] [facility] [place] [facility] [address] [place] [address] 06/27/2025 9:00 AM EDT [facility] [facility] [place] [facility] [address] [place] [address] 06/28/2025 9:00 AM EDT [facility] Att[facility]ance[facility] [place] [facility] [address] [place] [phone] 07/01/2025 9:00 AM EDT [facility] [facility] [place] [facility] [address] [place] [phone] 07/02/2025 9:00 AM EDT [place] [facility] [place] [facility] [address] [place] [phone] 07/04/2025 9:00 AM EDT [place] [facility] [place] [facility] [address] [place] [phone] 07/05/2025 9:00 AM EDT [facility] [facility] [place] [facility] [address] [place] [phone] 07/08/2025 9:00 AM EDT [facility] [facility] [facility] [place] [facility] [address] [place] [address] 07/09/2025 9:00 AM EDT [facility] [facility] [place] [facility] [address] [place] [phone] 07/11/2025 9:00 AM EDT [facility] [place] [facility] [place] [facility] [address] [place] [phone] 07/12/2025 9:00 AM EDT [facility] [facility] [facility] [place] [facility] [address] [place] [address] 07/15/2025 9:00 AM EDT [facility] [place] [facility] [place] [facility] [address] [place] [address] 07/16/2025 9:00 AM EDT [facility] [facility] [facility] [place] [facility] [address] [place] [address] 07/18/2025 9:00 AM EDT [facility] [facility] [place] [facility] [address] [place] [address] 07/19/2025 9:00 AM EDT [facility] [facility] [place] [facility] [address] [place] [address] 07/22/2025 9:00 AM EDT [facility] [facility] [place] [facility] [address] [place] [address] 07/23/2025 9:00 AM EDT [facility] [facility] [place] [facility] [address] [place] [phone] 07/25/2025 9:00 AM EDT [facility] [facility] [place] [facility] [address] [place] [phone] 07/26/2025 9:00 AM EDT [facility] [facility] [place] [facility] [address] [place] [address] 07/29/2025 9:00 AM EDT [facility] [facility] [place] [facility] [address] [place] [address] 07/30/2025 9:00 AM EDT [facility] [facility] [place] [facility] [address] [place] [address] 08/01/2025 9:00 AM EDT [facility] Att[facility] [place] [facility] [address] [place] [address] 08/02/2025 9:00 AM EDT [facility] [place] [facility] [address] [place] [address] 08/05/2025 9:00 AM EDT [facility] [facility] [place] [facility] [address] [place] [address] 08/06/2025 9:00 AM EDT [facility] [place] [facility] [address] [place] [phone] 08/08/2025 9:00 AM EDT [facility] [facility] [facility] [place] [facility] [address] [place] [address] 08/09/2025 9:00 AM EDT [facility] [facility] [place] [facility] [address] [place] [phone] 08/12/2025 9:00 AM EDT [facility] [facility] [place] [facility] [address] [place] [phone] 08/13/2025 9:00 AM EDT [facility] [facility] [place] [facility] [address] [place] [phone] 08/15/2025 9:00 AM EDT [facility] [place] [facility] [address] [place] [phone] 08/16/2025 9:00 AM EDT [facility] [facility] [place] [facility] [address] [place] [phone] 08/19/2025 9:00 AM EDT [facility] [facility] [place] [facility] [address] [place] [phone] 08/20/2025 9:00 AM EDT [facility] [facility] [place] [facility] [address] [place] [address] 08/22/2025 9:00 AM EDT [facility] [facility] [place] [facility] [address] [place] [address] 08/23/2025 9:00 AM EDT [facility] [place] [facility] [place] [facility] [address] [place] [address] 08/26/2025 9:00 AM EDT [facility] [place] [facility] [address] [place] [address] 08/27/2025 9:00 AM EDT [facility] [place] [facility] [place] [facility] [address] [place] [address] 08/29/2025 9:00 AM EDT [facility] [place] [facility] [address] [place] [address] 08/30/2025 9:00 AM EDT [facility] [facility] [place] [facility] [address] [place] [phone] 09/02/2025 9:00 AM EDT [facility] [place] [facility] [place] [facility] [address] [place] [phone] 09/03/2025 9:00 AM EDT [facility] [place] [facility] [place] [facility] [address] [place] [address] 09/05/2025 9:00 AM EDT [facility] [place] [facility] [place] [facility] [address] [place] [address] 09/06/2025 9:00 AM EDT [facility] [place] [facility] [address] [place] [address] 09/09/2025 9:00 AM EDT P[place] Att[facility] [facility] [place] [facility] [address] [place] [address] 09/10/2025 9:00 AM EDT P[facility] [address] [place] [address] 09/12/2025 9:00 AM EDT [facility] [address] [address] Health Maintenance Due Date Last Done Comments Non-Opioid Controlled Substance Agreement 1950 Zoster Vaccines (1 of 2) 02/25/1968 Hepatitis A Vaccines (2 of 2 - Risk 2-dose series) 08/12/2017 02/11/2017, 02/11/2017 Abdominal Aortic Aneurysm (AAA) Screen 01/20/2022 Falls Risk Assessment 01/20/2022 Social Influencers of Health Screening 01/20/2022 RSV Immunization Adult Patients (1 - 1-dose 75+ series) 02/25/2024 COVID-19 Vaccine ( season) 2024 03/31/2021, 03/31/2021, 08/08/2020 Influenza Vaccine (#1) 2024 12/01/2023 Drug Screen 04/28/2025 04/28/2024 Hypertension/CHF/CAD Annual BMP Blood Test 12/28/2025 12/28/2024, 07/06/2024, 04/28/2024, Additional history exists Colorectal Cancer Screening: Stool Based Tests (FOBT/FIT) 01/02/2026 01/02/2025 DTaP,Tdap,and Td Vaccines (2 - Td or Tdap) 08/05/2027 08/04/2017 Cholesterol Screening (Lipid Panel) 12/28/2029 12/28/2024, 07/06/2024, 02/10/2023 Hepatitis B Vaccines Completed 02/11/2017, 09/13/2016, 08/12/2016 Pneumococcal Vaccine: 50+ Years Completed 04/14/2017, 04/13/2016 Depression Screening Completed 12/28/2024 Hepatitis C Screening Completed 12/28/2024 HIB Vaccines Aged Out No longer eligi ble based on patient's age to complete this topic HPV Vaccines Aged Out No longer eligi ble based on patient's age to complete this topic IPV Vaccines Aged Out No longer eligi ble based on patient's age to complete this topic MMR Vaccines Aged Out No longer eligi ble based on patient's age to complete this topic Meningococcal ACWY Vaccine Aged Out N o longer eligible based on patient's age to complete this topic Meningococcal B Vaccine Aged Out No l onger eligible based on patient's age to complete this topic RSV Immunization Patients Under 20 months Aged Out No longer eligible based on patient's age to complete this topic Varicella Vaccines Aged Out No longer eligible based on patient's age to complete this topic Procedures Procedure Name Priority Date/Time Associated Diagnosis Comments CT CHEST WO CONTRAST Routine 01/29/2025 2:25 PM EST Pulmonary nodule OCCULT BLOOD STOOL, GUAIAC Routine 01/02/2025 12:05 PM EST Adult general medical examination AST, ALT, BILIRUBIN ELR STATE REPORTABLES Routine 12/28/2024 11:02 AM EST Cirrhosis of liver without ascites, unspecified hepatic cirrhosis type (CMS/HCC V24, CMS/HCC V28) HEPATITIS PANEL, ACUTE WITH REFLEX TO CONFIRMATION Routine 12/28/2024 11:02 AM EST Cirrhosis of liver without ascites, unspecified hepatic cirrhosis type (CMS/HCC V24, CMS/HCC V28) PSA TOTAL, FREE AND COMPLEXED, DIAGNOSTIC Routine 12/28/2024 11:02 AM EST Prostate cancer screening THYROID STIMULATING HORMONE WITH REFLEX TO FREE T4 AND FREE T3 Routine 12/28/2024 11:02 AM EST Vitamin D deficiency LIPID PANEL WITH REFLEX TO DIRECT LDL Routine 12/28/2024 11:02 AM EST Hyperlipidemia, unspecified hyperlipidemia type VITAMIN D 25 HYDROXY Routine 12/28/2024 11:02 AM EST Vitamin D deficiency CBC WITH AUTO DIFFERENTIAL Routine 12/28/2024 11:02 AM EST Vitamin D deficiency CBC AND DIFFERENTIAL Routine 12/28/2024 11:02 AM EST Vitamin D deficiency COMPREHENSIVE METABOLIC PANEL Routine 12/28/2024 11:02 AM EST Stage 3a chronic kidney disease (CKD) (CMS/HCC V24, CMS/HCC V28) DRUG ABUSE SCREEN 8A PANEL, URINE STAT 04/28/2024 11:11 PM EST from Last 3 Months or Most Recently Relevant to Health Maintenance Results * CT Chest wo Contrast (01/29/2025 2:25 PM EST) Anatomical Region Laterality Modality Body Computed Tomogra phy 02/05/2025 6:58 AM EST Impressions 02/05/2025 7:26 AM EST Unchanged left lower lobe nodule measures 0.4 cm. Stability since 2017. No new suspicious mass or nodule. Hiatal hernia -------- FINAL REPORT -------- Dictated By: Vaibhav Andino Dictated Date: 02/05/2025 06:58 ET Assigned Physician: Vaibhav Andino Reviewed and Electronically Signed By: Vaibhav Andino Signed Date: 02/05/2025 07:26 ET Workstation ID: [id number] Transcribed By: Self Edit Transcribed Date: 02/05/2025 06:58 ET Narrative 02/05/2025 7:26 AM EST EXAMINATION: CT CHEST WITHOUT CONTRAST CLINICAL INFORMATION: Lung nodule. Evaluate for changes. Previous CT demonstrated a left lower lobe nodule COMPARISON: Portions of previous 03/15/24 TECHNIQUE: Multidetector CT. Examination of the chest. Examination of the chest without IV contrast. Reformatting in the coronal and sagittal planes. DLP: 518 mGy-cm Dose optimization was performed including the use of low-dose iterative reconstruction technique with automatic exposure control based on patient size. Type of contrast: None Volume of IV contrast: None Volume of contrast discarded: 0 mL FINDINGS: LUNG: Suspicious abnormality of the trachea or mainstem bronchi. Peripheral part solid nodule in the posterolateral aspect left lower lobe 01/29/25-0.4 cm (3/159) 03/15/24-0.4 cm (3/137 02/11/17-0.3 cm (4/148) Unchanged 0.2 cm micronodule periphery left upper lobe laterally (3/174). MEDIASTINUM: There are no enlarged mediastinal or hilar lymph nodes. There is a moderate to large hiatal hernia with a paraesophageal component. CARDIAC: No cardiac mass. No pericardial fluid or significant thickening. CORONARY CALCIFICATION: No coronary calcifications demonstrated. VASCULAR: There is no thoracic aortic aneurysm. The main pulmonary artery is normal caliber. PLEURA: There is no pleural fluid or pneumothorax. AXILLA/CHEST WALL: There are no enlarged axillary lymph nodes. No chest wall mass demonstrated. VISUALIZED UPPER ABDOMEN: No suspicious abnormality on limited assessment of the visualized upper abdomen. 3.1 cm minimally complicated fluid attenuating cyst slightly exophytic from the upper left kidney. There is cholelithiasis. MUSCULOSKELETAL: No suspicious focal bony lesion. Procedure Note Vaibhav Andino MD - 02/05/2025 EXAMINATION: CT CHEST WITHOUT CONTRAST CLINICAL INFORMATION: Lung nodule. Evaluate for changes. Previous CT demonstrated a left lowerlobe nodule COMPARISON: Portions of previous 03/15/24 TECHNIQUE: Multidetector CT. Examination of the chest. Examination of the chest without IV contrast. Reformatting in the coronal and sagittal planes. DLP: 518 mGy-cm Dose optimization was performed including the use of low-dose iterativereconstruction technique with automatic exposure control based on patientsize. Type of contrast: None Volume of IV contrast: None Volume of contrast discarded: 0 mL FINDINGS: LUNG: Suspicious abnormality of the trachea or mainstem bronchi. Peripheral part solid nodule in the posterolateral aspect left lowerlobe 01/29/25-0.4 cm (3/159) 03/15/24-0.4 cm (3/137 02/11/17-0.3 cm (4/148) Unchanged 0.2 cm micronodule periphery left upper lobe laterally(3/174). MEDIASTINUM: There are no enlarged mediastinal or hilar lymph nodes.There is a moderate to large hiatal hernia with a paraesophagealcomponent. CARDIAC: No cardiac mass. No pericardial fluid or significantthickening. CORONARY CALCIFICATION: No coronary calcifications demonstrated. VASCULAR: There is no thoracic aortic aneurysm. The main pulmonary arteryis normal caliber. PLEURA: There is no pleural fluid or pneumothorax. AXILLA/CHEST WALL: There are no enlarged axillary lymph nodes. No chestwall mass demonstrated. VISUALIZED UPPER ABDOMEN: No suspicious abnormality on limited assessmentof the visualized upper abdomen. 3.1 cm minimally complicated fluidattenuating cyst slightly exophytic from the upper left kidney. There ischolelithiasis. MUSCULOSKELETAL: No suspicious focal bony lesion. IMPRESSION: Unchanged left lower lobe nodule measures 0.4 cm. Stability since 2017. No new suspicious mass or nodule. Hiatal hernia -------- FINAL REPORT -------- Dictated By: Vaibhav Andino Dictated Date: 02/05/2025 06:58 ET Assigned Physician: Vaibhav Andino Reviewed and Electronically Signed By: Vaibhav Andino Signed Date: 02/05/2025 07:26 ET Workstation ID: [id number] Transcribed By: Self Edit Transcribed Date: 02/05/2025 06:58 ET us Florentin Travis DIST[employer]BUTION SALES MANAGER IMG CT PROCEDURES Final Result * Occult blood stool, guaiac (01/02/2025 12:05 PM EST) Pathologist [facility] Occult Blood, Stool #1 Negative Negative 01/02/2025 5:41 PM EST [facility] Stool Rectum structure / Unknown Non-blood Collection / Unknown 01/02/2025 12:05 PM EST 01/02/2025 12:05 PM EST us Florentin Travis NP LAB BODY FLUIDS AND STOOLS ORDER YOHAN Final Result [facility] [address] [place] [address], [place] [phone] * PSA total, free and complexed (12/28/2024 11:02 AM EST) PSA 0.88 0.00 - 4.00 ng/mL LAB CHEMISTRY METHOD 12/28/2024 7:15 PM EST [facility] PSA, Complexed 0.62 0.00 - 3.00 ng/mL LAB CHEMISTRY METHOD 12/28/2024 7:15 PM [facility] PSA, Free 0.3 ng/mL LAB CHEMISTRY METHOD 12/28/2024 7:15 PM EST [facility] PSA, Free Pct 34.1 >25.0 % LAB CHEMISTRY METHOD 12/28/2024 7:15 PM [facility] Blood Venous blood specimen / Unknown Venipuncture / Unknown 12/28/2024 11:02 AM EST 12/28/2024 11:02 AM EST [facility] - 12/28/2024 7:15 PM EST Free PSA is a calculated value. The diagnostic usefulness of % free PSA has not been established in patients with Total PSA below 2.6 or above 10 ng/mL. This test was performed using the Centaur Chemiluminescent method. PSA values obtained with other methods cannot be used interchangeably. us Florentin Travis NP LAB BLOOD ORDERABLES Final Resul t [facility] [address] [place] [address], [place] [phone] * AST, ALT, Bilirubin ELR state reportables (12/28/2024 11:02 AM EST) ALT (SGPT) 24 10 - 60 unit/L LAB CHEMISTRY METHOD 12/28/2024 7:58 PM [facility] AST (SGOT) 13 10 - 42 unit/L LAB CHEMISTRY METHOD 12/28/2024 7:58 PM [facility] Total Bilirubin 0.5 0.0 - 1.4 mg/dL LAB CHEMISTRY METHOD 12/28/2024 7:58 PM [facility] Platelets 198 K/mcL LAB HEMETOLOGY METHOD 12/28/2024 7:58 PM [facility] Blood Venous blood specimen / Unknown Venipuncture / Unknown 12/28/2024 11:02 AM EST 12/28/2024 11:02 AM EST us Florentin Travis DIST[employer]BUTION SALES MANAGER LAB BLOOD ORDERABLES Final Resul t Performing Organization Address City/[facility]/ZIP Co de Phone Number [facility] [address] [place] [address], [place] [phone] * Thyroid stimulating hormone with reflex to free t4 and free t3 (12/28/2024 11:02 AM EST) Pathologist [facility] TSH 2.93 0.40 - 4.00 mcIU/mL LAB CHEMISTRY METHOD 12/28/2024 8:02 PM [facility] Blood Venous blood specimen / Unknown Venipuncture / Unknown 12/28/2024 11:02 AM EST 12/28/2024 11:02 AM EST us Florentin Travis NP LAB BLOOD ORDERABLES Final Resul t Performing Organization Address City/[facility]/ZIP Co de Phone Number [facility] [address] [place] [address], [place] [phone] * (ABNORMAL) Lipid panel with reflex to direct LDL (12/28/2024 11:02 AM EST) [facility] Cholesterol 127 0 - 200 mg/dL LAB CHEMISTRY METHOD 12/28/2024 6:14 PM [facility] Triglycerides 116 0 - 150 mg/dL LAB CHEMISTRY METHOD 12/28/2024 6:14 PM [facility] HDL 37(L) >=40 mg/dL LAB CHEMISTRY METHOD 12/28/2024 6:14 PM [facility] LDL Calculated 67 0 - 100 mg/dL LAB CHEMISTRY METHOD 12/28/2024 6:14 PM [facility] Comment:Estimated LDL Calcul ated using equation: Total cholesterol - HDL cholesterol - (Triglycerides/5) VLDL Cholesterol Matt 23.2 mg/dL LAB CHEMISTRY METHOD 12/28/2024 6:14 PM [facility] Non HDL Chol. (LDL+VLDL) 90 <145 mg/dL LAB CHEMISTRY METHOD 12/28/2024 6:14 PM [facility] Chol/HDL Ratio 3.4 0.0 - 4.4 LAB CHEMISTRY METHOD 12/28/2024 6:14 PM [facility] Blood Venous blood specimen / Unknown Venipuncture / Unknown 12/28/2024 11:02 AM EST 12/28/2024 11:02 AM EST us Florentin Travis NP LAB BLOOD ORDERABLES Final Resul t Performing Organization Address City/[facility]/ZIP Co de Phone Number [facility] [address] [place] [address], [place] [phone] * (ABNORMAL) Hepatitis panel, acute with reflex to confirmation (12/28/2024 11:02 AM EST) Hepatitis B Surface Ag Negative Negative LAB CHEMISTRY METHOD 12/28/2024 7:55 PM [facility] Hepatitis A Antibody IgM Negative Negative LAB CHEMISTRY METHOD 12/28/2024 7:55 PM [facility] Hep B Core IgM Negative Negative LAB CHEMISTRY METHOD 12/28/2024 7:55 PM [facility] Hepatitis C Antibody Positive(A) Negative LAB CHEMISTRY METHOD 12/28/2024 7:55 PM [facility] Comment:If confirmation of t his positive HCV Ab screening test is needed, please redraw and order HCV Viral Load. Note--> This test may not be added on due to different specimen requirements. Blood Venous blood specimen / Unknown Venipuncture / Unknown 12/28/2024 11:02 AM EST 12/28/2024 11:02 AM EST us Florentin Travis NP LAB BLOOD ORDERABLES Final Resul t [facility] [address] [place] [address], [place] [phone] * (ABNORMAL) CBC auto differential (12/28/2024 11:02 AM EST) [facility] WBC 7.8 4.8 - 10.8 K/mcL LAB HEMETOLOGY METHOD 12/28/2024 5:42 PM [facility] RBC 4.90 4.50 - 5.50 M/mcL LAB HEMETOLOGY METHOD 12/28/2024 5:42 PM [facility] Hemoglobin 12.9(L) 13.5 - 17.5 g/dL LAB HEMETOLOGY METHOD 12/28/2024 5:42 PM [facility] Hematocrit 40.1(L) 42.0 - 54.0 % LAB HEMETOLOGY METHOD 12/28/2024 5:42 PM [facility] MCV 81.3 79.0 - 98.0 FL LAB HEMETOLOGY METHOD 12/28/2024 5:42 PM [facility] MCH 26.2(L) 27.0 - 32.0 pcg LAB HEMETOLOGY METHOD 12/28/2024 5:42 PM [facility] MCHC 32.2 32.0 - 37.0 g/dL LAB HEMETOLOGY METHOD 12/28/2024 5:42 PM [facility] RDW 14.6 11.0 - 15.0 % LAB HEMETOLOGY METHOD 12/28/2024 5:42 PM [facility] Platelets 198 130 - 400 K/mcL LAB HEMETOLOGY METHOD 12/28/2024 5:42 PM [facility] MPV 11.9(H) 7.0 - 11.0 FL LAB HEMETOLOGY METHOD 12/28/2024 5:42 PM [facility] NRBC 0.0 <1.0 % LAB HEMETOLOGY METHOD 12/28/2024 5:42 PM [facility] NRBC Absolute 0.00 <0.10 K/mcL LAB HEMETOLOGY METHOD 12/28/2024 5:42 PM [facility] Neutrophils Relative 74.7 % LAB HEMETOLOGY METHOD 12/28/2024 5:42 PM [facility] Lymphocytes Relative 15.5 % LAB HEMETOLOGY METHOD 12/28/2024 5:42 PM [facility] Monocytes Relative 8.0 % LAB HEMETOLOGY METHOD 12/28/2024 5:42 PM [facility] Eosinophils Relative 1.3 % LAB HEMETOLOGY METHOD 12/28/2024 5:42 PM [facility] Basophils Relative 0.4 % LAB HEMETOLOGY METHOD 12/28/2024 5:42 PM [facility] Immature Granulocytes Relative 0.1 % LAB HEMETOLOGY METHOD 12/28/2024 5:42 PM [facility] Neutrophils Absolute 5.79 1.50 - 7.00 K/mcL LAB HEMETOLOGY METHOD 12/28/2024 5:42 PM [facility] Lymphocytes Absolute 1.20 1.00 - 5.00 K/mcL LAB HEMETOLOGY METHOD 12/28/2024 5:42 PM [facility] Monocytes Absolute 0.62 0.20 - 1.00 K/mcL LAB HEMETOLOGY METHOD 12/28/2024 5:42 PM [facility] Eosinophils Absolute 0.10 0.00 - 0.50 K/mcL LAB HEMETOLOGY METHOD 12/28/2024 5:42 PM [facility] Basophils Absolute 0.03 0.00 - 0.20 K/mcL LAB HEMETOLOGY METHOD 12/28/2024 5:42 PM [facility] Immature Granulocytes Absolute 0.01 0.00 - 0.03 K/mcL LAB HEMETOLOGY METHOD 12/28/2024 5:42 PM [facility] Blood Venous blood specimen / Unknown Venipuncture / Unknown 12/28/2024 11:02 AM EST 12/28/2024 11:02 AM EST us Florentin Travis DISTRIBUTION SALES MANAGER LAB BLOOD ORDERABLES Final Resul t Performing Organization Address [facility]/ZIP Co de Phone Number [facility] [address] [place] [address], [place] [phone] * Vitamin D 25 hydroxy (12/28/2024 11:02 AM EST) Pathologist [facility] Vit D, 25-Hydroxy 59.2 30.0 - 80.0 ng/mL LAB CHEMISTRY METHOD 12/28/2024 7:14 PM [facility] Blood Venous blood specimen / Unknown Venipuncture / Unknown 12/28/2024 11:02 AM EST 12/28/2024 11:02 AM EST us Florentin Travis NP LAB BLOOD ORDERABLES Final Resul t Performing Organization Address [facility]/ZIP Co de Phone Number [facility] [address] [place] [address], [place] [phone] * (ABNORMAL) Comprehensive metabolic panel (12/28/2024 11:02 AM EST) [facility] Sodium 140 133 - 145 mmol/L LAB CHEMISTRY METHOD 12/28/2024 6:14 PM [facility] Potassium 4.1 3.5 - 5.5 mmol/L LAB CHEMISTRY METHOD 12/28/2024 6:14 PM [facility] Chloride 111(H) 96 - 110 mmol/L LAB CHEMISTRY METHOD 12/28/2024 6:14 PM [facility] CO2 24 21 - 32 mmol/L LAB CHEMISTRY METHOD 12/28/2024 6:14 PM [facility] Anion Gap 5 3 - 11 LAB CHEMISTRY METHOD 12/28/2024 6:14 PM [facility] Glucose 130(H) 70 - 100 mg/dL LAB CHEMISTRY METHOD 12/28/2024 6:14 PM [facility] BUN 20 5 - 25 mg/dL LAB CHEMISTRY METHOD 12/28/2024 6:14 PM [facility] Creatinine 1.39(H) 0.70 - 1.30 mg/dL LAB CHEMISTRY METHOD 12/28/2024 6:14 PM [facility] eGFR 53(L) >=60 mL/min/1. 73m2 LAB CHEMISTRY METHOD 12/28/2024 6:14 PM [facility] Comment:Calculation based on the Chronic Kidney Disease Epidemiology Collaboration (CKD-EPI) equation refit without adjustment for race. BUN/Creatinine Ratio 14.4 LAB CHEMISTRY METHOD 12/28/2024 6:14 PM [facility] Calcium 9.1 8.5 - 10.5 mg/dL LAB CHEMISTRY METHOD 12/28/2024 6:14 PM [facility] AST (SGOT) 13 10 - 42 unit/L LAB CHEMISTRY METHOD 12/28/2024 6:14 PM [facility] ALT (SGPT) 24 10 - 60 unit/L LAB CHEMISTRY METHOD 12/28/2024 6:14 PM [facility] Alkaline Phosphatase 99 42 - 121 unit/L LAB CHEMISTRY METHOD 12/28/2024 6:14 PM [facility] Total Protein 7.1 6.0 - 8.0 g/dL LAB CHEMISTRY METHOD 12/28/2024 6:14 PM [facility] Albumin 3.4 3.2 - 5.0 g/dL LAB CHEMISTRY METHOD 12/28/2024 6:14 PM [facility] Total Bilirubin 0.5 0.0 - 1.4 mg/dL LAB CHEMISTRY METHOD 12/28/2024 6:14 PM [facility] Blood Venous blood specimen / Unknown Venipuncture / Unknown 12/28/2024 11:02 AM EST 12/28/2024 11:02 AM EST us Florentin Travis DISTRIBUTION SALES MANAGER LAB BLOOD ORDERABLES Final Resul t [facility] [address] [place] [address], * Drug abuse screen 8a panel, urine (04/28/2024 11:11 PM EST) Amphetamine Screen, Ur Negative Negative LAB CHEMISTRY METHOD 04/28/2024 11:47 PM [facility] Comment:Certain OTC medicati ons containing ephedrine, phenylephrine, pseudoephedrine and phenylpropanolamine can cause false positive results. Barbiturate Screen, Ur Negative Negative LAB CHEMISTRY METHOD 04/28/2024 11:47 PM [facility] Benzodiazepine Screen, Ur Negative Negative LAB CHEMISTRY METHOD 04/28/2024 11:47 PM [facility] Cocaine Screen, Ur Negative Negative LAB CHEMISTRY METHOD 04/28/2024 11:47 PM [facility] Opiate Screen, Ur Negative Negative LAB CHEMISTRY METHOD 04/28/2024 11:47 PM [facility] Cannabinoid (THC) Screen, Ur Negative Negative LAB CHEMISTRY METHOD 04/28/2024 11:47 PM [facility] Comment:Specimens from patie nts taking pantoprazole sodium (Protonix) have been shown to produce false positive results. Oxycodone Screen, Ur Negative Negative LAB CHEMISTRY METHOD 04/28/2024 11:47 PM [facility] Fentanyl, Ur Negative Negative LAB CHEMISTRY METHOD 04/28/2024 11:47 PM [facility] Urine Urine specimen obtained by clean catch procedure / Unknown Non-blood Collection / Unknown 04/28/2024 11:11 PM EST 04/28/2024 11:24 PM EST Narrative [facility] - 04/28/2024 11:47 PM EST Assay cutoffs: Amphetamines 1000 ng/mL Barbiturates 200 ng/mL Benzodiazepines 200 ng/mL Cocaine 300 ng/mL Fentanyl 1 ng/mL Opiates 300 ng/mL Oxycodone 100 ng/mL THC 50 ng/mL Semi-quantitative assay for screening purposes only. Unconfirmed screening result should not be used for non-medical purposes. *ALTERNATE METHOD CONFIRMATION DONE UPON REQUEST ONLY* Madeline CHAMPION LAB URINE ORDERABLES Fin al Result [facility] [address] [place] [address], [place] [phone] from Last 3 Months or Most Recently Relevant to Health Maintenance Insurance [employer] * Guarantor: [employer] Account Type Relation to Patient Date of Phone Billing Address NILA [address] [place] [address] [facility] Advance Directives Documents on File Type Date Recorded Patient Patient Support Representative Expl anation Advance Directives and Living Will 03/12/2024 12:46 PM Adv Dir- Care [place] 5.11.17 Advance Directives and Living Will 03/12/2024 12:46 PM ADV DIR-Healthcare Proxy 2.26.18 Advance Directives and Living Will 03/12/2024 12:46 PM ADV DIR-MOLST 10.5.1 6 Health Care Decision (hx) 01/25/2023 ADVANCE DIRECTIVE Health Care Decision (hx) 01/25/2023 ADVANCE DIRECTIVE Health Care Decision (hx) 01/25/2023 ADVANCE DIRECTIVE Health Care Decision (hx) 01/25/2023 ADVANCE DIRECTIVE * Full Code - Confirmed (Latest Code Status on File) Date Activated Date Inactivated Comments 04/11/2024 4:45 PM This code stat us was ascertained in the following way: Code status discussion: per living will or healthcare instructions To update the patient's code status, place a code status order. Do not modify or discontinue any currently active code status orders. Care Teams Hospice Care Consultant Relationship Specialty Start Date End Date Florentin Travis NP [address] [place] [id number] PCP - General 12/27/23
--- OUTSIDE RECORDS SUMMARY | 2025-02-05 18:52 | XMS_ITS | Encounter Summary ---
Author Organization [facility] Address [address] [place] [address] Care Team Providers Care Action Installer Name Role Phone Florentin Travis NP Primary Care Provider [phone] Reason for Visit * Reason Onset Date Comments Clinical 04/29/2024 Sister called to discuss participant's discharge from [facility] and psych services participant may need. on call pharmacy technician provider Kaira made aware for further follow up. Encounter Details Date Type Department Care Team ([facility] st Contact Info) Description 04/29/2024 PACE On-Call [facility] [address] [place] [address] Florentin Travis NP [address] [address] Social History Tobacco Use Types Packs/Day Years [...] 10:11 AM EDT Chanell Obando RN * [place] Suicide Severity Rating Scale (Screener/Recent Self-Report) Question Answer Date of Assessment Author 1. Wish to be (Past 1 Month) No 025 10:11 AM TRACIET Chanell Mora, BRAIN 2. Non-Specific Active Suici simi Thoughts (Past 1 Month) No 04/30/2024 10:11 AM EDT Brodie Mora, BRAIN 6. Suicidal Behavior (Lifetime) No 10:11 AM TRACIET Chanell Mora, BRAIN 6. Suicidal Behavior (3 Months) No 5 10:11 AM TRACIET Chanell Mora, BRAIN documented as of this encounter Plan of Treatment Upcoming Encounters Date Type Department Care Team (Late st Contact Info) Description 02/06/2025 10:30 AM EST PACE Home Care / [place] [facility] [place] [facility] [address] [place] [phone] Leonides Lopez 02/07/2025 9:00 AM EST [place] [facility] [place] [address] [place] [phone] 02/08/2025 9:00 AM EST [place] [facility] [place] [address] [place] [phone] 02/11/2025 9:00 AM EST [place] [facility] [place] [address] [place] [phone] 02/12/2025 9:00 AM EST [place] [facility] [place] [address] [place] [phone] 02/13/2025 10:30 AM EST PACE Home Care / [place] [facility] [place] [facility] [address] [place] [phone] Leonides Lopez 02/14/2025 9:00 AM EST [place] [facility] [place] [address] [place] [phone] 02/15/2025 9:00 AM EST [place] [facility] [place] [address] [place] [address] 02/18/2025 9:00 AM EST [place] [facility] [place] [address] [place] [address] 02/19/2025 9:00 AM EST [place] [facility] [place] [address] [place] [address] 02/20/2025 10:30 AM EST PACE Home Care / [place] [facility] [place] [facility] [address] [place] [phone] Leonides Lopez 02/21/2025 9:00 AM EST [place] [facility] [place] [address] [place] [phone] 02/21/2025 2:00 PM EST PACE Home Care / [place] [facility] [place] [facility] [address] [place] [phone] Chanell Marcos 02/22/2025 9:00 AM EST [place] [facility] [place] [facility] [address] [place] [phone] 02/25/2025 9:00 AM EST [place] [facility] [place] [address] [place] [address] 02/26/2025 9:00 AM EST [place] [facility] [place] [facility] [address] [place] [phone] 02/27/2025 10:30 AM EST PACE Home Care / [place] [facility] [place] [facility] [address] [place] [address] Leonides Lopez 02/28/2025 9:00 AM EST [place] [facility] [place] [address] [place] [phone] 03/01/2025 9:00 AM EST [place] [facility] [place] [address] [place] [address] 03/04/2025 9:00 AM EST [place] [facility] [place] [address] [place] [address] 03/05/2025 9:00 AM EST [place] [facility] [place] [address] [place] [address] 03/06/2025 10:30 AM EST PACE Home Care / [place] [facility] [place] [facility] [address] [place] [phone] Leonides Lopez 03/07/2025 9:00 AM EST [place] [facility] [place] [facility] [address] [place] [phone] 03/07/2025 1:00 PM EST Clinical Support [facility] [place] [address] [place] [address] 03/08/2025 9:00 AM EST [place] [facility] [place] [address] [place] [address] 03/11/2025 9:00 AM EST [place] [facility] [place] [address] [place] [address] 03/12/2025 9:00 AM EST [place] [facility] [place] [address] [place] [address] 03/13/2025 10:30 AM EST PACE Home Care / [place] [facility] [place] [facility] [address] [place] [address] Leonides Lopez 03/14/2025 9:00 AM EST [place] [facility] [place] [address] [place] [address] 03/14/2025 2:00 PM EST PACE Home Care / [place] [facility] [place] [facility] [address] [place] [address] Chanell Marcos 03/15/2025 9:00 AM EST [place] [facility] [place] [address] [place] [address] 03/18/2025 9:00 AM EST [place] [facility] [place] [address] [place] [address] 03/19/2025 9:00 AM EST [place] [facility] [place] [address] [place] [address] 03/20/2025 10:30 AM EST PACE Home Care / [place] [facility] [place] [facility] [address] [place] [address] Leonides Lopez 03/21/2025 9:00 AM EST [place] [facility] [place] [address] [place] [address] 03/22/2025 9:00 AM EST [place] [facility] [place] [address] [place] [address] 03/25/2025 9:00 AM EST [place] [facility] [place] [address] [place] [address] 03/26/2025 9:00 AM EST [place] [facility] [place] [address] [place] [address] 03/27/2025 10:30 AM EST PACE Home Care / [place] [facility] [place] [facility] [address] [place] [address] Leonides Lopez 03/28/2025 9:00 AM EST [place] [facility] [place] [address] [place] [address] 03/29/2025 9:00 AM EST [place] [facility] [place] [address] [place] [address] 04/01/2025 9:00 AM EST [place] [facility] [place] [address] [place] [address] 04/02/2025 9:00 AM EST [place] [facility] [place] [address] [place] [address] 04/03/2025 10:30 AM EST PACE Home Care / [place] [facility] [place] [facility] [address] [place] [phone] Leonides Lopez 04/04/2025 9:00 AM EST [place] [facility] [place] [address] [place] [phone] 04/04/2025 2:00 PM EST PACE Home Care / [place] [facility] [place] [facility] [address] [place] [phone] Chanell Marcos 04/05/2025 9:00 AM EST [place] [facility] [place] [address] [place] [phone] 04/08/2025 9:00 AM EST [place] [facility] [place] [address] [place] [address] 04/09/2025 9:00 AM EST [place] [facility] [place] [address] [place] [address] 04/11/2025 9:00 AM EST [place] [facility] [place] [address] [place] [phone] 04/12/2025 9:00 AM EST [place] [facility] [place] [address] [place] [address] 04/15/2025 9:00 AM EST [place] [facility] [place] [address] [place] [address] 04/16/2025 9:00 AM EST [place] [facility] [place] [address] [place] [address] 04/18/2025 9:00 AM EST [place] [facility] [place] [address] [place] [address] 04/19/2025 9:00 AM EST [place] [facility] [place] [address] [place] [address] 04/22/2025 9:00 AM EST [place] [facility] [place] [address] [place] [address] 04/23/2025 9:00 AM EST [place] [facility] [place] [address] [place] [address] 04/25/2025 9:00 AM EST [place] [facility] [place] [address] [place] [address] 04/26/2025 9:00 AM EST [place] [facility] [place] [address] [place] [address] 04/29/2025 9:00 AM EDT [place] [facility] [place] [address] [place] [address] 04/30/2025 9:00 AM EDT [place] [facility] [place] [address] [place] [address] 05/02/2025 9:00 AM EDT [place] [facility] [place] [address] [place] [address] 05/03/2025 9:00 AM EDT [place] [facility] [place] [address] [place] [address] 05/06/2025 9:00 AM EDT [place] [facility] [place] [address] [place] [address] 05/07/2025 9:00 AM EDT [place] [facility] [place] [address] [place] [phone] 05/09/2025 9:00 AM EDT [place] [facility] [place] [facility] [address] [place] [phone] 05/10/2025 9:00 AM EDT [place] [facility] [place] [facility] [address] [place] [phone] 05/13/2025 9:00 AM EDT [place] [facility] [place] [facility] [address] [place] [phone] 05/14/2025 9:00 AM EDT [place] [facility] [place] [address] [place] [phone] 05/16/2025 9:00 AM EDT [place] [facility] [place] [address] [place] [phone] 05/17/2025 9:00 AM EDT [place] [facility] [place] [facility] [address] [place] [phone] 05/20/2025 9:00 AM EDT [place] [facility] [place] [address] [place] [address] 05/21/2025 9:00 AM EDT [place] [facility] [place] [address] [place] [phone] 05/23/2025 9:00 AM EDT [place] [facility] [place] [address] [place] [phone] 05/24/2025 9:00 AM EDT [place] [facility] [place] [address] [place] [phone] 05/27/2025 9:00 AM EDT [place] [facility] [place] [address] [place] [address] 05/28/2025 9:00 AM EDT [place] [facility] [place] [facility] [address] [place] [phone] 05/30/2025 9:00 AM EDT [place] [facility] [place] [facility] [address] [place] [phone] 05/31/2025 9:00 AM EDT [place] [facility] [place] [facility] [address] [place] [phone] 06/03/2025 9:00 AM EDT [place] [facility] [place] [facility] [address] [place] [phone] 06/04/2025 9:00 AM EDT [place] [facility] [place] [facility] [address] [place] [address] 06/06/2025 9:00 AM EDT [place] [facility] [place] [address] [place] [address] 06/07/2025 9:00 AM EDT [place] [facility] [place] [address] [place] [phone] 06/10/2025 9:00 AM EDT [place] [facility] [place] [facility] [address] [place] [phone] 06/11/2025 9:00 AM EDT [place] [facility] [place] [address] [place] [phone] 06/13/2025 9:00 AM EDT [place] [facility] [place] [address] [place] [phone] 06/14/2025 9:00 AM EDT [place] [facility] [place] [address] [place] [phone] 06/17/2025 9:00 AM EDT [place] [facility] [place] [address] [place] [phone] 06/18/2025 9:00 AM EDT [place] [facility] [place] [address] [place] [phone] 06/20/2025 9:00 AM EDT [place] [facility] [place] [address] [place] [phone] 06/21/2025 9:00 AM EDT [place] [facility] [place] [facility] [address] [place] [phone] 06/24/2025 9:00 AM EDT [place] [facility] [place] [facility] [address] [place] [phone] 06/25/2025 9:00 AM EDT [place] [facility] [place] [facility] [address] [place] [phone] 06/27/2025 9:00 AM EDT [place] [facility] [place] [facility] [address] [place] [phone] 06/28/2025 9:00 AM EDT [place] [facility] [place] [address] [place] [phone] 07/01/2025 9:00 AM EDT [place] [facility] [place] [address] [place] [address] 07/02/2025 9:00 AM EDT [place] [facility] [place] [facility] [address] [place] [address] 07/04/2025 9:00 AM EDT [place] [facility] [place] [facility] [address] [place] [address] 07/05/2025 9:00 AM EDT [place] [facility] [place] [facility] [address] [place] [phone] 07/08/2025 9:00 AM EDT [place] [facility] [place] [facility] [address] [place] [phone] 07/09/2025 9:00 AM EDT [place] [facility] [place] [facility] [address] [place] [phone] 07/11/2025 9:00 AM EDT [place] [facility] [place] [facility] [address] [place] [phone] 07/12/2025 9:00 AM EDT [place] [facility] [place] [facility] [address] [place] [phone] 07/15/2025 9:00 AM EDT [place] [facility] [place] [facility] [address] [place] [phone] 07/16/2025 9:00 AM EDT [place] [facility] [place] [facility] [address] [place] [phone] 07/18/2025 9:00 AM EDT [place] [facility] [place] [facility] [address] [place] [phone] 07/19/2025 9:00 AM EDT [place] [facility] [place] [facility] [address] [place] [address] 07/22/2025 9:00 AM EDT [place] [facility] [place] [facility] [facility] [address] [place] [address] 07/23/2025 9:00 AM EDT [place] [facility] [place] [facility] [facility] [address] [place] [address] 07/25/2025 9:00 AM EDT [place] [facility] [place] [facility] [address] [place] [phone] 07/26/2025 9:00 AM EDT [place] [facility] [place] [facility] [address] [place] [phone] 07/29/2025 9:00 AM EDT [place] [facility] [place] [facility] [address] [place] [phone] 07/30/2025 9:00 AM EDT [place] [facility] [place] [facility] [address] [place] [phone] 08/01/2025 9:00 AM EDT [place] [facility] [place] [facility] [facility] [address] [place] [phone] 08/02/2025 9:00 AM EDT [place] [facility] [place] [facility] [address] [place] [address] 08/05/2025 9:00 AM EDT [place] [facility] [place] [facility] [address] [place] [address] 08/06/2025 9:00 AM EDT [place] [facility] [place] [facility] [address] [place] [phone] 08/08/2025 9:00 AM EDT [place] [facility] [place] [facility] [facility] [address] [place] [address] 08/09/2025 9:00 AM EDT [place] [facility] [place] [facility] [facility] [address] [place] [address] 08/12/2025 9:00 AM EDT [place] [facility] [place] [facility] [facility] [address] [place] [address] 08/13/2025 9:00 AM EDT [place] [facility] [place] [facility] [facility] [address] [place] [address] 08/15/2025 9:00 AM EDT [place] [facility] [place] [facility] [facility] [address] [place] [address] 08/16/2025 9:00 AM EDT [place] [facility] [place] [facility] [facility] [address] [place] [address] 08/19/2025 9:00 AM EDT [place] [facility] [place] [facility] [address] [place] [phone] 08/20/2025 9:00 AM EDT [place] [facility] [place] [facility] [address] [place] [phone] 08/22/2025 9:00 AM EDT [place] [facility] [place] [facility] [facility] [address] [place] [address] 08/23/2025 9:00 AM EDT [place] [facility] [place] [facility] [facility] [address] [place] [address] 08/26/2025 9:00 AM EDT [place] [facility] [place] [facility] [facility] [address] [place] [address] 08/27/2025 9:00 AM EDT [place] [facility] [place] [facility] [address] [place] [phone] 08/29/2025 9:00 AM EDT [place] [facility] [place] [facility] [address] [place] [phone] 08/30/2025 9:00 AM EDT [place] [facility] [place] [facility] [address] [place] [phone] 09/02/2025 9:00 AM EDT [place] [facility] [place] [facility] [address] [place] [phone] 09/03/2025 9:00 AM EDT [place] [facility] [place] [facility] [address] [place] [phone] 09/05/2025 9:00 AM EDT [place] [facility] [place] [facility] [address] [place] [phone] 09/06/2025 9:00 AM EDT [place] [facility] [place] [facility] [address] [place] [phone] 09/09/2025 9:00 AM EDT [place] [facility] [place] [facility] [address] [place] [phone] 09/10/2025 9:00 AM EDT [place] [facility] [place] [facility] [address] [place] [phone] 09/12/2025 9:00 AM EDT P[place] Attendance[facility] [facility] [place] [facility] [address] [place] [phone] documented as of this encounter Visit Diagnoses Not on filedocumented in this encounter Care Teams Action Installer Relationship Specialty Start Date End Date Florentin Travis NP [address] [place] [id number] PCP - General 12/27/23 documented as of this encounter
--- OUTSIDE RECORDS SUMMARY | 2025-02-05 18:53 | XMS_ITS | Encounter Summary ---
Author Organization [facility] Address [address] [place] [address] Care Team Providers Care Tree Expert Name Role Phone Florentin Travis NP Primary Care Provider [phone] Encounter Details Date Type Department Care Team (Late st Contact Info) Description 05/03/2024 Health Home Core Service [facility] [place] [facility] [address] [place] [phone] Penelope Alvarez, ALBA Social History Tobacco Use [...] PACE Home Care / PACE Home Visit [facility] [place] [facility] [address] [place] [phone] Leonides Lopez 02/07/2025 9:00 AM EST PACE Attendance/Day Center [facility] [address] [place] [phone] 02/08/2025 9:00 AM EST [place] Attendance/[place] [facility] [place] [facility] [address] [place] [phone] 02/11/2025 9:00 AM EST [place] Attendance[place] [facility] [place] [facility] [address] [place] [phone] 02/12/2025 9:00 AM EST [place] Att[place] [facility] [place] [facility] [address] [place] [phone] 02/13/2025 10:30 AM EST PACE Home Care / [place] Home [place] [facility] [place] [facility] [address] [place] [phone] Leonides Lopez 02/14/2025 9:00 AM EST PACE Att[place] [facility] [place] [facility] [address] [place] [phone] 02/15/2025 9:00 AM EST [place] Att[place] [facility] [place] [facility] [address] [place] [address] 02/18/2025 9:00 AM EST [place] Att[place] [facility] [place] [facility] [address] [place] [phone] 02/19/2025 9:00 AM EST [place] Att[place] [facility] [place] [facility] [address] [place] [phone] 02/20/2025 10:30 AM EST PACE Home Care / [place] [facility] [place] [facility] [address] [place] [phone] Leonides Lopez 02/21/2025 9:00 AM EST [place] Att[place] [facility] [place] [facility] [address] [place] [phone] 02/21/2025 2:00 PM EST PACE Home Care / [place] [facility] [place] [facility] [address] [place] [phone] Chanell Marcos 02/22/2025 9:00 AM EST [place] Att[place] [facility] [place] [facility] [address] [place] [phone] 02/25/2025 9:00 AM EST [place] Att[place] [facility] [place] [facility] [facility] [address] [place] [address] 02/26/2025 9:00 AM EST [place] Att[place] [facility] [place] [facility] [facility] [address] [place] [address] 02/27/2025 10:30 AM EST PACE Home Care / [facility] [place] [facility] [address] [place] [phone] Leonides Lopez 02/28/2025 9:00 AM EST [place] Attend[place] [facility] [place] [facility] [address] [place] [phone] 03/01/2025 9:00 AM EST [place] [facility] [place] [facility] [address] [place] [phone] 03/04/2025 9:00 AM EST [place] [facility] [place] [facility] [address] [place] [phone] 03/05/2025 9:00 AM EST [place] [facility] [place] [facility] [address] [place] [phone] 03/06/2025 10:30 AM EST PACE Home Care / [place] [facility] [place] [facility] [address] [place] [phone] Leonides Lopez 03/07/2025 9:00 AM EST [place] Att[place] [facility] [place] [facility] [address] [place] [phone] 03/07/2025 1:00 PM EST Clinical Support [facility] [address] [place] [phone] 03/08/2025 9:00 AM EST [place] Att[place] [facility] [place] [facility] [address] [place] [address] 03/11/2025 9:00 AM EST [place] [facility] [place] [facility] [address] [place] [address] 03/12/2025 9:00 AM EST [place] [facility] [place] [facility] [address] [place] [address] 03/13/2025 10:30 AM EST PACE Home Care / [place] [facility] [place] [facility] [address] [place] [phone] Leonides Lopez 03/14/2025 9:00 AM EST [place] Att[place] [facility] [place] [facility] [address] [place] [phone] 03/14/2025 2:00 PM EST PACE Home Care / [place] [facility] [place] [facility] [address] [place] [phone] Chanell Marcos 03/15/2025 9:00 AM EST [place] Att[place] [facility] [place] [facility] [address] [place] [phone] 03/18/2025 9:00 AM EST [place] [facility] [place] [facility] [address] [place] [address] 03/19/2025 9:00 AM EST [place] Att[place] [facility] [place] [facility] [address] [place] [address] 03/20/2025 10:30 AM EST PACE Home Care / [place] [facility] [place] [facility] [address] [place] [phone] Leonides Lopez 03/21/2025 9:00 AM EST [facility] Att[facility] [place] [facility] [address] [place] [address] 03/22/2025 9:00 AM EST [place] Att[place] [facility] [place] [facility] [address] [place] [address] 03/25/2025 9:00 AM EST P[place] Att[place]ance[facility] [facility] [place] [facility] [address] [place] [phone] 03/26/2025 9:00 AM EST P[place] Att[place] [facility] [place] [facility] [address] [place] [address] 03/27/2025 10:30 AM EST PACE Home Care / [place] [facility] [place] [facility] [address] [place] [phone] Leonides Lopez 03/28/2025 9:00 AM EST [place] Att[place] [facility] [place] [facility] [address] [place] [phone] 03/29/2025 9:00 AM EST [place] [facility] [place] [facility] [address] [place] [phone] 04/01/2025 9:00 AM EST [place] Att[place] [facility] [place] [facility] [address] [place] [phone] 04/02/2025 9:00 AM EST [place] Att[place] [facility] [place] [facility] [address] [place] [phone] 04/03/2025 10:30 AM EST PACE Home Care / [place] [facility] [place] [facility] [address] [place] [phone] Leonides Lopez 04/04/2025 9:00 AM EST [place] Att[place] [facility] [place] [facility] [address] [place] [phone] 04/04/2025 2:00 PM EST PACE Home Care / [place] [facility] [place] [facility] [address] [place] [address] Chanell Marcos 04/05/2025 9:00 AM EST [place] Att[place] [facility] [place] [facility] [address] [place] [address] 04/08/2025 9:00 AM EST [place] Att[place] [facility] [place] [facility] [address] [place] [phone] 04/09/2025 9:00 AM EST [place] Att[place] [facility] [place] [facility] [address] [place] [address] 04/11/2025 9:00 AM EST [place] Att[place] [facility] [place] [facility] [address] [place] [phone] 04/12/2025 9:00 AM EST [place] Att[place] [facility] [place] [facility] [address] [place] [phone] 04/15/2025 9:00 AM EST [place] Att[place] [facility] [place] [facility] [address] [place] [phone] 04/16/2025 9:00 AM EST [place] Att[place] [facility] [place] [facility] [address] [place] [phone] 04/18/2025 9:00 AM EST [place] [facility] [place] [facility] [address] [place] [phone] 04/19/2025 9:00 AM EST [place] Att[place] [facility] [place] [facility] [address] [place] [phone] 04/22/2025 9:00 AM EST PACE Attendance/[facility] [place] [facility] [address] [place] [phone] 04/23/2025 9:00 AM EST P[place] Attend[place] [facility] [place] [facility] [address] [place] [address] 04/25/2025 9:00 AM EST [place] Att[place] [facility] [place] [facility] [address] [place] [phone] 04/26/2025 9:00 AM EST [facility] Attendance[facility] [facility] [place] [facility] [address] [place] [address] 04/29/2025 9:00 AM EDT [facility] Attendance[facility] [facility] [place] [facility] [address] [place] [address] 04/30/2025 9:00 AM EDT [facility] Attendance[facility] [facility] [place] [facility] [address] [place] [phone] 05/02/2025 9:00 AM EDT [facility] Attendance[facility] [facility] [place] [facility] [address] [place] [address] 05/03/2025 9:00 AM EDT [place] Att[place] [facility] [place] [facility] [address] [place] [phone] 05/06/2025 9:00 AM EDT [place] Att[place] [facility] [place] [facility] [address] [place] [phone] 05/07/2025 9:00 AM EDT [place] Attend[place] [facility] [place] [facility] [address] [place] [address] 05/09/2025 9:00 AM EDT [place] Att[place] [facility] [place] [facility] [address] [place] [address] 05/10/2025 9:00 AM EDT [place] Att[place] [facility] [place] [facility] [address] [place] [phone] 05/13/2025 9:00 AM EDT [place] Att[place] [facility] [place] [facility] [address] [place] [phone] 05/14/2025 9:00 AM EDT [place] Attendance[facility] [facility] [place] [facility] [address] [place] [phone] 05/16/2025 9:00 AM EDT [place] Attendance[facility] [facility] [place] [facility] [address] [place] [address] 05/17/2025 9:00 AM EDT [place] Att[place]ance[facility] [facility] [place] [facility] [address] [place] [phone] 05/20/2025 9:00 AM EDT [place] Att[place] [facility] [place] [facility] [address] [place] [phone] 05/21/2025 9:00 AM EDT [place] Att[place] [facility] [place] [facility] [address] [place] [phone] 05/23/2025 9:00 AM EDT [place] Att[place] [facility] [place] [facility] [address] [place] [phone] 05/24/2025 9:00 AM EDT [place] Att[place] [facility] [place] [facility] [address] [place] [phone] 05/27/2025 9:00 AM EDT [place] Att[place] [facility] [place] [facility] [address] [place] [phone] 05/28/2025 9:00 AM EDT [place] Att[place] [facility] [place] [facility] [address] [place] [phone] 05/30/2025 9:00 AM EDT [place] Att[place] [facility] [place] [facility] [address] [place] [phone] 05/31/2025 9:00 AM EDT [place] Att[place] [facility] [place] [facility] [address] [place] [phone] 06/03/2025 9:00 AM EDT [place] Att[place] [facility] [place] [facility] [address] [place] [phone] 06/04/2025 9:00 AM EDT [place] Att[place] [facility] [place] [facility] [address] [place] [phone] 06/06/2025 9:00 AM EDT [place] Att[place] [facility] [place] [facility] [address] [place] [phone] 06/07/2025 9:00 AM EDT [place] Att[place] [facility] [place] [facility] [address] [place] [phone] 06/10/2025 9:00 AM EDT [place] Att[place] [facility] [place] [facility] [address] [place] [phone] 06/11/2025 9:00 AM EDT [place] Att[place] [facility] [place] [facility] [address] [place] [phone] 06/13/2025 9:00 AM EDT [place] Att[place] [facility] [place] [facility] [address] [place] [phone] 06/14/2025 9:00 AM EDT [place] Att[place] [facility] [place] [facility] [address] [place] [phone] 06/17/2025 9:00 AM EDT [place] Att[place] [facility] [place] [facility] [address] [place] [phone] 06/18/2025 9:00 AM EDT [place] Att[place] [facility] [place] [facility] [address] [place] [phone] 06/20/2025 9:00 AM EDT [place] Att[place] [facility] [place] [facility] [address] [place] [phone] 06/21/2025 9:00 AM EDT [place] Att[place] [facility] [place] [facility] [address] [place] [phone] 06/24/2025 9:00 AM EDT [place] Att[place] [facility] [place] [facility] [address] [place] [phone] 06/25/2025 9:00 AM EDT [place] Att[place] [facility] [place] [facility] [address] [place] [phone] 06/27/2025 9:00 AM EDT [place] Att[place] [facility] [place] [facility] [address] [place] [phone] 06/28/2025 9:00 AM EDT [place] Att[place] [facility] [place] [facility] [address] [place] [phone] 07/01/2025 9:00 AM EDT [place] Att[place] [facility] [place] [facility] [address] [place] [phone] 07/02/2025 9:00 AM EDT [place] Att[place] [facility] [place] [facility] [address] [place] [phone] 07/04/2025 9:00 AM EDT [place] Att[place] [facility] [place] [facility] [address] [place] [phone] 07/05/2025 9:00 AM EDT [place] Att[place] [facility] [place] [facility] [address] [place] [phone] 07/08/2025 9:00 AM EDT [place] Att[place] [facility] [place] [facility] [address] [place] [phone] 07/09/2025 9:00 AM EDT [place] Att[place] [facility] [place] [facility] [address] [place] [phone] 07/11/2025 9:00 AM EDT [place] Att[place] [facility] [place] [facility] [address] [place] [phone] 07/12/2025 9:00 AM EDT [facility] Att[facility] [facility] [place] [facility] [address] [place] [phone] 07/15/2025 9:00 AM EDT [facility] Att[facility] [facility] [place] [facility] [address] [place] [phone] 07/16/2025 9:00 AM EDT [facility] Att[place] [facility] [place] [facility] [address] [place] [phone] 07/18/2025 9:00 AM EDT [facility] Att[place] [facility] [place] [facility] [address] [place] [phone] 07/19/2025 9:00 AM EDT [place] [facility] [place] [facility] [address] [place] [phone] 07/22/2025 9:00 AM EDT [place] Att[place] [facility] [place] [facility] [address] [place] [phone] 07/23/2025 9:00 AM EDT [place] Att[place] [facility] [place] [facility] [address] [place] [phone] 07/25/2025 9:00 AM EDT [place] Att[place] [facility] [place] [facility] [address] [place] [phone] 07/26/2025 9:00 AM EDT [place] [facility] [place] [facility] [address] [place] [phone] 07/29/2025 9:00 AM EDT [place] Att[place] [facility] [place] [facility] [address] [place] [phone] 07/30/2025 9:00 AM EDT [facility] Att[facility] [facility] [place] [facility] [address] [place] [phone] 08/01/2025 9:00 AM EDT [facility] Att[place] [facility] [place] [facility] [address] [place] [phone] 08/02/2025 9:00 AM EDT [facility] Att[place] [facility] [place] [facility] [address] [place] [phone] 08/05/2025 9:00 AM EDT [facility] Att[place] [facility] [place] [facility] [address] [place] [phone] 08/06/2025 9:00 AM EDT [place] Att[place] [facility] [place] [facility] [address] [place] [phone] 08/08/2025 9:00 AM EDT [place] [facility] [place] [facility] [address] [place] [phone] 08/09/2025 9:00 AM EDT [facility] Att[place] [facility] [place] [facility] [address] [place] [phone] 08/12/2025 9:00 AM EDT [place] Att[place] [facility] [place] [facility] [address] [place] [phone] 08/13/2025 9:00 AM EDT [place] Att[place] [facility] [place] [facility] [address] [place] [phone] 08/15/2025 9:00 AM EDT [place] Att[place] [facility] [place] [facility] [address] [place] [phone] 08/16/2025 9:00 AM EDT [place] Att[place] [facility] [place] [facility] [address] [place] [phone] 08/19/2025 9:00 AM EDT [facility] Att[facility] [facility] [place] [facility] [address] [place] [address] 08/20/2025 9:00 AM EDT [facility] Att[facility] [facility] [place] [facility] [address] [place] [phone] 08/22/2025 9:00 AM EDT [facility] Att[facility] [facility] [place] [facility] [address] [place] [phone] 08/23/2025 9:00 AM EDT [facility] Att[place] [facility] [place] [facility] [address] [place] [address] 08/26/2025 9:00 AM EDT [facility] Att[place] [facility] [place] [facility] [address] [place] [phone] 08/27/2025 9:00 AM EDT [facility] Att[place] [facility] [place] [facility] [address] [place] [phone] 08/29/2025 9:00 AM EDT [facility] Att[place] [facility] [place] [facility] [address] [place] [phone] 08/30/2025 9:00 AM EDT [facility] Att[place] [facility] [place] [facility] [address] [place] [phone] 09/02/2025 9:00 AM EDT [facility] Att[place] [facility] [place] [facility] [address] [place] [address] 09/03/2025 9:00 AM EDT [place] Att[place] [facility] [place] [facility] [address] [place] [phone] 09/05/2025 9:00 AM EDT [facility] Att[place] [facility] [place] [facility] [address] [place] [phone] 09/06/2025 9:00 AM EDT PACE Attendance/Day Center [facility] [employer] [place] [facility] Day Center [address] [place] [phone] 09/09/2025 9:00 AM EDT PACE Attendance/[facility] Day [address] [phone] 09/10/2025 9:00 AM EDT PACE Attendance/Day Center [facility] Day [address] [phone] 09/12/2025 9:00 AM EDT PACE Attendance/Day Center [facility] Day [address] [phone] documented as of this encounter Visit Diagnoses Not on filedocumented in this encounter Care Teams Tree Expert Relationship Specialty Start Date End Date Florentin Travis NP [address] [address] PCP - General 12/27/23 documented as of this encounter
--- OUTSIDE RECORDS SUMMARY | 2025-02-05 18:53 | XMS_ITS | Encounter Summary ---
Author Organization [facility] Address [address] [place] [address] Care Team Providers Care Base Engineer Name Role Phone Florentin Travis NP Primary Care Provider [phone] Reason for Referral * Consultation (Routine) - Closed Specialty Diagnoses / Procedures Referred By Flavio guevara Referred To Contact Emergency Medicine Diagnoses Medication overdose, accidental or unintentional, initial encounter Florentin Travis NP [address] [address] Phone: tel: fax:[phone] [facility] [address] [place], [place] Referral ID Status Reason Start Date Expiration Date Visits Re quested Visits Authorized [id number] Closed 04/27/2024 04/27/2025 1 1 Encounter Details Date Type Department Care Team (Late st Contact Info) Description 04/26/2024 PACE Admissions [facility] [address] [place] [id number] Romina Grijalva, final armature tester overdose, accidental or unintentional, initial encounter (Primary Dx) Social History Tobacco Use Types Packs/Day Years [...] Score (Lifetime/Recent) Answer Date of Assessment Author Moderate Risk 04/29/2024 5:26 AM Carmelita Sim RN * [place] Suicide Severity Rating Scale (Screener/Recent Self-Report) Question Answer Date of Assessment Author 1. Wish to be (Past 1 Month) No 025 5:26 AM Carmelita Sim RN 2. Non-Specific Active Suici simi Thoughts (Past 1 Month) No 04/29/2024 5:26 AM Yaima Sim RN 6. Suicidal Behavior (Lifetime) Yes 5:26 AM Carmelita Sim RN 6. Suicidal Behavior (3 Months) No 5:26 AM TRACIET Carmelita Ortega RN documented as of this encounter Progress Notes * Romina Grijalva RN - 04/26/2024 11:59 PM EST 04/27/2024 Par treated and released from [facility] ED last night after ingesting 4 mg of lorazepam, which precipitated a panic attack. Par denied intent to self-harm, or suicidal ideation. Par remained stable in the ED and discharged to home. [facility] PCP and clinical material handler notified. RTC planned. documented in this encounter Plan of Treatment Upcoming Encounters Date Type Department Care Team (Late st Contact Info) Description 02/06/2025 10:30 AM EST PACE Home Care / PACE Home Visit [facility] [address] [place] [address] Leonides Lopez 02/07/2025 9:00 AM EST P[facility] Day [facility] [address] [place] [address] 02/08/2025 9:00 AM EST PACE Attendance/Day Center [facility] P[facility] Day Center [address] [place] [address] 02/11/2025 9:00 AM EST [place]ance[place] [facility] [place] [facility] [address] [place] [address] 02/12/2025 9:00 AM EST [place] [facility] [place] [facility] [address] [place] [phone] 02/13/2025 10:30 AM EST PACE Home Care / [place] [facility] [place] [facility] [address] [place] [phone] Leonides Lopez 02/14/2025 9:00 AM EST [place] [facility] [place] [address] [place] [phone] 02/15/2025 9:00 AM EST [place] [facility] [place] [facility] [address] [place] [phone] 02/18/2025 9:00 AM EST [place] [facility] [place] [facility] [address] [place] [phone] 02/19/2025 9:00 AM EST [place] [facility] [place] [facility] [address] [place] [phone] 02/20/2025 10:30 AM EST PACE Home Care / [place] [facility] [place] [facility] [address] [place] [phone] Leonides Lopez 02/21/2025 9:00 AM EST [place] [facility] [place] [facility] [address] [place] [phone] 02/21/2025 2:00 PM EST PACE Home Care / [place] [facility] [place] [facility] [address] [place] [phone] Chanell Marcos 02/22/2025 9:00 AM EST [place] [facility] [place] [facility] [facility] [address] [place] [address] 02/25/2025 9:00 AM EST [place] [facility] [place] [facility] [address] [place] [phone] 02/26/2025 9:00 AM EST [place] [facility] [place] [facility] [address] [place] [phone] 02/27/2025 10:30 AM EST PACE Home Care / [place] [facility] [place] [facility] [address] [place] [phone] Leonides Lopez 02/28/2025 9:00 AM EST [place] [facility] [place] [facility] [address] [place] [phone] 03/01/2025 9:00 AM EST [place] [facility] [place] [facility] [address] [place] [phone] 03/04/2025 9:00 AM EST [place] [facility] [place] [facility] [address] [place] [phone] 03/05/2025 9:00 AM EST [place] [facility] [place] [facility] [address] [place] [phone] 03/06/2025 10:30 AM EST PACE Home Care / [place] [facility] [place] [facility] [address] [place] [phone] Leonides Lopez 03/07/2025 9:00 AM EST PACE Attendance/Day Center [facility] [address] [place] [phone] 03/07/2025 1:00 PM EST Clinical Support [facility] [place] [address] [place] [phone] 03/08/2025 9:00 AM EST P[place] Att[place] [facility] [place] [facility] [address] [place] [address] 03/11/2025 9:00 AM EST [place] [facility] [place] [facility] [address] [place] [address] 03/12/2025 9:00 AM EST [place] [facility] [place] [facility] [address] [place] [address] 03/13/2025 10:30 AM EST PACE Home Care / [place] [facility] [place] [facility] [address] [place] [phone] Leonides Lopez 03/14/2025 9:00 AM EST [place] [facility] [place] [facility] [address] [place] [phone] 03/14/2025 2:00 PM EST PACE Home Care / [place] [facility] [place] [facility] [address] [place] [phone] Chanell Marcos 03/15/2025 9:00 AM EST [place] [facility] [place] [facility] [address] [place] [phone] 03/18/2025 9:00 AM EST [place] [facility] [place] [facility] [address] [place] [address] 03/19/2025 9:00 AM EST [place] [facility] [place] [facility] [address] [place] [phone] 03/20/2025 10:30 AM EST PACE Home Care / [place] [facility] [place] [facility] [address] [place] [phone] Leonides Lopez 03/21/2025 9:00 AM EST [place] Att[place] [facility] [place] [facility] [address] [place] [address] 03/22/2025 9:00 AM EST [place] [facility] [place] [facility] [address] [place] [address] 03/25/2025 9:00 AM EST P[place] Attendance[place] [facility] [place] [facility] [address] [place] [phone] 03/26/2025 9:00 AM EST [place] Att[place] [facility] [place] [facility] [address] [place] [phone] 03/27/2025 10:30 AM EST PACE Home Care / [place] [facility] [place] [facility] [address] [place] [phone] Leonides Lopez 03/28/2025 9:00 AM EST [place] [facility] [place] [address] [place] [phone] 03/29/2025 9:00 AM EST [place] [facility] [place] [address] [place] [phone] 04/01/2025 9:00 AM EST [place] [facility] [place] [facility] [address] [place] [phone] 04/02/2025 9:00 AM EST [place] [facility] [place] [facility] [address] [place] [phone] 04/03/2025 10:30 AM EST PACE Home Care / [place] [facility] [place] [facility] [address] [place] [phone] Leonides Lopez 04/04/2025 9:00 AM EST [place] [facility] [place] [facility] [address] [place] [phone] 04/04/2025 2:00 PM EST PACE Home Care / [place] [facility] [place] [facility] [address] [place] [address] Chanell Marcos 04/05/2025 9:00 AM EST [place] Att[place] [facility] [place] [facility] [address] [place] [address] 04/08/2025 9:00 AM EST [place] [facility] [place] [address] [place] [address] 04/09/2025 9:00 AM EST [place] [facility] [place] [facility] [address] [place] [address] 04/11/2025 9:00 AM EST [place] [facility] [place] [facility] [address] [place] [address] 04/12/2025 9:00 AM EST [place] [facility] [place] [facility] [address] [place] [address] 04/15/2025 9:00 AM EST [place] [facility] [place] [facility] [address] [place] [phone] 04/16/2025 9:00 AM EST [place] [facility] [place] [facility] [address] [place] [phone] 04/18/2025 9:00 AM EST [place] [facility] [place] [facility] [facility] [address] [place] [address] 04/19/2025 9:00 AM EST [place] [facility] [place] [facility] [facility] [address] [place] [address] 04/22/2025 9:00 AM EST [place] [facility] [place] [facility] [facility] [address] [place] [address] 04/23/2025 9:00 AM EST [place] [facility] [place] [facility] [address] [place] [address] 04/25/2025 9:00 AM EST [place] [facility] [place] [facility] [address] [place] [phone] 04/26/2025 9:00 AM EST [place] [facility] [place] [facility] [address] [place] [phone] 04/29/2025 9:00 AM EDT [place] Att[place] [facility] [place] [facility] [address] [place] [phone] 04/30/2025 9:00 AM EDT [place] [facility] [place] [facility] [address] [place] [phone] 05/02/2025 9:00 AM EDT [place] [facility] [place] [facility] [address] [place] [phone] 05/03/2025 9:00 AM EDT [place] [facility] [place] [facility] [address] [place] [phone] 05/06/2025 9:00 AM EDT [place] [facility] [place] [facility] [address] [place] [phone] 05/07/2025 9:00 AM EDT [place] Att[place] [facility] [place] [facility] [address] [place] [phone] 05/09/2025 9:00 AM EDT [place] Att[place] [facility] [place] [facility] [address] [place] [phone] 05/10/2025 9:00 AM EDT [place] Att[place] [facility] [place] [facility] [address] [place] [phone] 05/13/2025 9:00 AM EDT [place] Att[place] [facility] [place] [facility] [address] [place] [phone] 05/14/2025 9:00 AM EDT [place] Att[place] [facility] [place] [facility] [address] [place] [phone] 05/16/2025 9:00 AM EDT [place] Att[place] [facility] [place] [facility] [address] [place] [phone] 05/17/2025 9:00 AM EDT [place] [facility] [place] [facility] [address] [place] [phone] 05/20/2025 9:00 AM EDT P[place] Att[place] [facility] [place] [facility] [address] [place] [phone] 05/21/2025 9:00 AM EDT [place] [facility] [place] [facility] [address] [place] [phone] 05/23/2025 9:00 AM EDT [place] Att[place] [facility] [place] [facility] [address] [place] [phone] 05/24/2025 9:00 AM EDT [place] Att[place] [facility] [place] [facility] [address] [place] [phone] 05/27/2025 9:00 AM EDT [place] Att[place] [facility] [place] [facility] [address] [place] [phone] 05/28/2025 9:00 AM EDT [place] Att[place] [facility] [place] [facility] [address] [place] [phone] 05/30/2025 9:00 AM EDT [place] Att[place] [facility] [place] [facility] [address] [place] [phone] 05/31/2025 9:00 AM EDT [place] Att[place] [facility] [place] [address] [place] [phone] 06/03/2025 9:00 AM EDT [place] Att[place] [facility] [place] [address] [place] [address] 06/04/2025 9:00 AM EDT [place] [facility] [place] [address] [place] [address] 06/06/2025 9:00 AM EDT [place] Att[place] [facility] [place] [address] [place] [address] 06/07/2025 9:00 AM EDT [place] [facility] [place] [address] [place] [phone] 06/10/2025 9:00 AM EDT [place] [facility] [place] [facility] [address] [place] [phone] 06/11/2025 9:00 AM EDT [place] [facility] [place] [address] [place] [phone] 06/13/2025 9:00 AM EDT [place] [facility] [place] [facility] [address] [place] [phone] 06/14/2025 9:00 AM EDT [place] Att[place] [facility] [place] [facility] [address] [place] [phone] 06/17/2025 9:00 AM EDT P[place] Attend[place] [facility] [place] [address] [place] [phone] 06/18/2025 9:00 AM EDT P[place] Att[place] [facility] [place] [facility] [address] [place] [phone] 06/20/2025 9:00 AM EDT [place] Att[place] [facility] [place] [facility] [address] [place] [phone] 06/21/2025 9:00 AM EDT [place] Att[place] [facility] [place] [facility] [address] [place] [address] 06/24/2025 9:00 AM EDT [place] Att[place] [facility] [place] [facility] [address] [place] [address] 06/25/2025 9:00 AM EDT [place] Att[place] [facility] [place] [facility] [address] [place] [address] 06/27/2025 9:00 AM EDT [place] Att[place] [facility] [place] [facility] [address] [place] [phone] 06/28/2025 9:00 AM EDT [place] [facility] [place] [facility] [address] [place] [phone] 07/01/2025 9:00 AM EDT [place] [facility] [place] [facility] [address] [place] [phone] 07/02/2025 9:00 AM EDT [place] [facility] [place] [facility] [address] [place] [phone] 07/04/2025 9:00 AM EDT [place] [facility] [place] [facility] [address] [place] [phone] 07/05/2025 9:00 AM EDT [place] Att[place] [facility] [place] [facility] [facility] [address] [place] [address] 07/08/2025 9:00 AM EDT [place] [facility] [place] [facility] [address] [place] [phone] 07/09/2025 9:00 AM EDT [place] Att[place] [facility] [place] [facility] [address] [place] [phone] 07/11/2025 9:00 AM EDT P[place] Att[place] [facility] [place] [facility] [address] [place] [address] 07/12/2025 9:00 AM EDT [place] Att[place] [facility] [place] [facility] [facility] [address] [place] [address] 07/15/2025 9:00 AM EDT [place] Att[place] [facility] [place] [facility] [facility] [address] [place] [address] 07/16/2025 9:00 AM EDT [place] [facility] [place] [address] [place] [phone] 07/18/2025 9:00 AM EDT [place] [facility] [place] [facility] [address] [place] [phone] 07/19/2025 9:00 AM EDT [place] [facility] [place] [address] [place] [phone] 07/22/2025 9:00 AM EDT [place] [facility] [place] [address] [place] [phone] 07/23/2025 9:00 AM EDT [place] [facility] [place] [address] [place] [phone] 07/25/2025 9:00 AM EDT [place] Att[place] [facility] [place] [facility] [address] [place] [address] 07/26/2025 9:00 AM EDT [place] [facility] [place] [facility] [address] [place] [address] 07/29/2025 9:00 AM EDT [place] [facility] [place] [facility] [address] [place] [phone] 07/30/2025 9:00 AM EDT [place] Att[place] [facility] [place] [facility] [address] [place] [address] 08/01/2025 9:00 AM EDT [place] [facility] [place] [facility] [address] [place] [address] 08/02/2025 9:00 AM EDT [place] Att[place] [facility] [place] [facility] [address] [place] [address] 08/05/2025 9:00 AM EDT [place] Att[place] [facility] [place] [facility] [address] [place] [address] 08/06/2025 9:00 AM EDT [place] [facility] [place] [facility] [address] [place] [phone] 08/08/2025 9:00 AM EDT [place] [facility] [place] [facility] [address] [place] [phone] 08/09/2025 9:00 AM EDT [place] [facility] [place] [facility] [address] [place] [phone] 08/12/2025 9:00 AM EDT [place] [facility] [place] [facility] [address] [place] [phone] 08/13/2025 9:00 AM EDT [place] [facility] [place] [facility] [address] [place] [phone] 08/15/2025 9:00 AM EDT [place] [facility] [place] [facility] [address] [place] [phone] 08/16/2025 9:00 AM EDT [place] [facility] [place] [facility] [address] [place] [phone] 08/19/2025 9:00 AM EDT [place] [facility] [place] [facility] [facility] [address] [place] [address] 08/20/2025 9:00 AM EDT [place] [facility] [place] [facility] [address] [place] [address] 08/22/2025 9:00 AM EDT [place] Att[place] [facility] [place] [facility] [facility] [address] [place] [address] 08/23/2025 9:00 AM EDT [place] Att[place] [facility] [place] [facility] [address] [place] [address] 08/26/2025 9:00 AM EDT [place] [facility] [place] [facility] [address] [place] [address] 08/27/2025 9:00 AM EDT [place] Att[place] [facility] [place] [facility] [address] [place] [address] 08/29/2025 9:00 AM EDT [place] [facility] [place] [facility] [address] [place] [phone] 08/30/2025 9:00 AM EDT [place] [facility] [place] [facility] [address] [place] [phone] 09/02/2025 9:00 AM EDT [place] Att[place] [facility] [place] [facility] [address] [place] [address] 09/03/2025 9:00 AM EDT [place] Att[place] [facility] [place] [facility] [facility] [address] [place] [address] 09/05/2025 9:00 AM EDT [place] [facility] [place] [facility] [facility] [address] [place] [address] 09/06/2025 9:00 AM EDT P[place] Attendance/[place] [facility] [place] [facility] [address] [place] [phone] 09/09/2025 9:00 AM EDT PACE Attendance/Day Center [address] [address] 09/10/2025 9:00 AM EDT PACE Attendance/Day Center [address] [address] 09/12/2025 9:00 AM EDT PACE Attendance/Day Center [address] [address] Scheduled Referrals Name Type Priority Associated Diagnoses Orde r Schedule PACE Admisssion Outpatient Referral Routine Medication overdose, accidental or unintentional, initial encounter Ordered: 04/27/2024 documented as of this encounter Visit Diagnoses Diagnosis Medication overdose, accidental or unintentional, initial encounter- Primary documented in this encounter Care Teams Base Engineer Relationship Specialty Start Date End Date Florentin Travis NP [address] [place] [phone] PCP - General 12/27/23 documented as of this encounter
--- OUTSIDE RECORDS SUMMARY | 2025-02-05 18:53 | XMS_ITS | Encounter Summary ---
Author Organization [facility] Address [address] [place] [address] Care Team Providers Care Campus Manager Name Role Phone Florentin Travis NP Primary Care Provider [phone] Reason for Visit * Reason Onset Date Comments Clinical 05/17/2024 Participant call ed to report to Florentin PATEL, he would like an appt made with neurologist. Informed participant message would be relayed. Encounter Details Date Type Department Care Team (Late Contact Info) Description 05/17/2024 [place] [place] [facility] [place] [facility] [address] [place] [address] Florentin Travis NP [address] [address] Social History Tobacco Use Types Packs/Day Years [...] Encounters Date Type Department Care Team (Late Contact Info) Description 02/06/2025 10:30 AM EST PACE Home Care / [place] [facility] [place] [facility] [address] [place] [address] Leonides Lopez 02/07/2025 9:00 AM EST [place] [place] [facility] [place] [facility] [address] [place] [address] 02/08/2025 9:00 AM EST [place] [facility] [place] [facility] [address] [place] [address] 02/11/2025 9:00 AM EST PACE Attendance/Day Center [facility] [place] [facility] [address] [place] [address] 02/12/2025 9:00 AM EST [place] [facility] [place] [facility] [address] [place] [address] 02/13/2025 10:30 AM EST PACE Home Care / PACE Home Visit [facility] [place] [facility] [address] [place] [phone] Leonides Lopez 02/14/2025 9:00 AM EST PACE Attendance/Day Center [facility] [place] [facility] [address] [place] [phone] 02/15/2025 9:00 AM EST [place] [facility] [place] [facility] [address] [place] [phone] 02/18/2025 9:00 AM EST [place] [facility] [place] [facility] [address] [place] [address] 02/19/2025 9:00 AM EST [place] [facility] [place] [facility] [facility] [address] [place] [address] 02/20/2025 10:30 AM EST PACE Home Care / [place] [facility] [place] [facility] [place] [facility] [address] [place] [address] Leonides Lopez 02/21/2025 9:00 AM EST [place] [facility] [place] [facility] [address] [place] [address] 02/21/2025 2:00 PM EST PACE Home Care / [place] [facility] [place] [facility] [address] [place] [address] Priti Chanell 02/22/2025 9:00 AM EST [place] [facility] [place] [facility] [address] [place] [address] 02/25/2025 9:00 AM EST [place] [facility] [place] [facility] [facility] [address] [place] [address] 02/26/2025 9:00 AM EST [place] [facility] [place] [facility] [address] [place] [phone] 02/27/2025 10:30 AM EST PACE Home Care / [place] [facility] [place] [facility] [address] [place] [phone] Leonides Lopez 02/28/2025 9:00 AM EST [place] [facility] [place] [facility] [address] [place] [phone] 03/01/2025 9:00 AM EST [place] [facility] [place] [facility] [address] [place] [phone] 03/04/2025 9:00 AM EST [place] [facility] [place] [facility] [address] [place] [phone] 03/05/2025 9:00 AM EST [place] [facility] [place] [facility] [address] [place] [phone] 03/06/2025 10:30 AM EST PACE Home Care / [place] [facility] [place] [facility] [address] [place] [phone] Leonides Lopez 03/07/2025 9:00 AM EST [place] [facility] [place] [facility] [address] [place] [address] 03/07/2025 1:00 PM EST Clinical Support [facility] [place] [address] [place] [phone] 03/08/2025 9:00 AM EST [place] [facility] [place] [facility] [address] [place] [phone] 03/11/2025 9:00 AM EST [place] [facility] [place] [facility] [address] [place] [phone] 03/12/2025 9:00 AM EST [place] [facility] [place] [facility] [address] [place] [phone] 03/13/2025 10:30 AM EST PACE Home Care / PACE Home Visit [facility] [place] [facility] [address] [place] [phone] Leonides Lopez 03/14/2025 9:00 AM EST [place] [facility] [place] [facility] [address] [place] [phone] 03/14/2025 2:00 PM EST PACE Home Care / [place] [facility] [place] [facility] [address] [place] [phone] Chanell Marcos 03/15/2025 9:00 AM EST [place] [facility] [place] [facility] [address] [place] [phone] 03/18/2025 9:00 AM EST [place] [facility] [place] [facility] [facility] [address] [place] [phone] 03/19/2025 9:00 AM EST [place] [facility] [place] [facility] [address] [place] [phone] 03/20/2025 10:30 AM EST PACE Home Care / [place] [facility] [place] [facility] [address] [place] [address] Leonides Lopez 03/21/2025 9:00 AM EST [place] [facility] [place] [facility] [facility] [address] [place] [address] 03/22/2025 9:00 AM EST [place] [facility] [place] [facility] [facility] [address] [place] [address] 03/25/2025 9:00 AM EST [place] [facility] [place] [facility] [address] [place] [phone] 03/26/2025 9:00 AM EST [place] [facility] [place] [facility] [address] [place] [phone] 03/27/2025 10:30 AM EST PACE Home Care / [place] [facility] [place] [facility] [place] [facility] [address] [place] [phone] Leonides Lopez 03/28/2025 9:00 AM EST [place] [facility] [place] [facility] [facility] [address] [place] [phone] 03/29/2025 9:00 AM EST [place] [facility] [place] [facility] [facility] [address] [place] [address] 04/01/2025 9:00 AM EST [place] [facility] [place] [facility] [facility] [address] [place] [address] 04/02/2025 9:00 AM EST [place] [facility] [place] [facility] [facility] [address] [place] [phone] 04/03/2025 10:30 AM EST PACE Home Care / [place] [facility] [address] [place] [phone] Leonides Lopez 04/04/2025 9:00 AM EST [place] [facility] [place] [facility] [facility] [address] [place] [address] 04/04/2025 2:00 PM EST PACE Home Care / [place] [facility] [place] [facility] [address] [place] [address] Chanell Marcos 04/05/2025 9:00 AM EST [place] [facility] [place] [facility] [facility] [address] [place] [address] 04/08/2025 9:00 AM EST PACE Attendance/Day Center [facility] [place] [facility] [address] [place] [phone] 04/09/2025 9:00 AM EST PACE Attendance/Day Center [facility] [place] [facility] [address] [place] [phone] 04/11/2025 9:00 AM EST PACE Attendance[facility] [place] [facility] [place] [facility] [address] [place] [phone] 04/12/2025 9:00 AM EST [place] [facility] [place] [facility] [address] [place] [phone] 04/15/2025 9:00 AM EST [place] [facility] [place] [facility] [facility] [address] [place] [phone] 04/16/2025 9:00 AM EST [place] [facility] [place] [facility] [facility] [address] [place] [address] 04/18/2025 9:00 AM EST [place] [facility] [place] [facility] [address] [place] [address] 04/19/2025 9:00 AM EST [place] [facility] [place] [facility] [facility] [address] [place] [address] 04/22/2025 9:00 AM EST [place] [facility] [place] [facility] [facility] [address] [place] [phone] 04/23/2025 9:00 AM EST [place] [facility] [place] [facility] [address] [place] [phone] 04/25/2025 9:00 AM EST [place] [facility] [place] [facility] [address] [place] [phone] 04/26/2025 9:00 AM EST [place] [facility] [place] [facility] [address] [place] [phone] 04/29/2025 9:00 AM EDT [place] [facility] [place] [facility] [address] [place] [phone] 04/30/2025 9:00 AM EDT [place] [facility] [place] [facility] [address] [place] [phone] 05/02/2025 9:00 AM EDT [place] [facility] [place] [facility] [address] [place] [phone] 05/03/2025 9:00 AM EDT [place] [facility] [place] [facility] [address] [place] [phone] 05/06/2025 9:00 AM EDT [place] [facility] [place] [facility] [address] [place] [phone] 05/07/2025 9:00 AM EDT [place] Att[place] [facility] [place] [facility] [address] [place] [phone] 05/09/2025 9:00 AM EDT [place] [facility] [place] [facility] [address] [place] [phone] 05/10/2025 9:00 AM EDT [facility] Att[facility] [facility] [place] [facility] [facility] [address] [place] [address] 05/13/2025 9:00 AM EDT [place] Att[place] [facility] [place] [facility] [facility] [address] [place] [address] 05/14/2025 9:00 AM EDT [place] [facility] [place] [facility] [facility] [address] [place] [address] 05/16/2025 9:00 AM EDT [place] Att[place] [facility] [place] [facility] [address] [place] [phone] 05/17/2025 9:00 AM EDT [place] [facility] [place] [facility] [address] [place] [phone] 05/20/2025 9:00 AM EDT [place] [facility] [place] [facility] [address] [place] [phone] 05/21/2025 9:00 AM EDT [place] [facility] [place] [facility] [address] [place] [phone] 05/23/2025 9:00 AM EDT [place] [facility] [place] [facility] [address] [place] [phone] 05/24/2025 9:00 AM EDT [place] Att[place] [facility] [place] [facility] [facility] [address] [place] [address] 05/27/2025 9:00 AM EDT [place] [facility] [place] [facility] [facility] [address] [place] [address] 05/28/2025 9:00 AM EDT [place] [facility] [place] [facility] [address] [place] [phone] 05/30/2025 9:00 AM EDT [place] Att[place] [facility] [place] [facility] [address] [place] [address] 05/31/2025 9:00 AM EDT [place] Att[place] [facility] [place] [facility] [address] [place] [address] 06/03/2025 9:00 AM EDT [place] Att[place] [facility] [place] [facility] [address] [place] [address] 06/04/2025 9:00 AM EDT [place] [facility] [place] [facility] [address] [place] [phone] 06/06/2025 9:00 AM EDT [place] [facility] [place] [facility] [address] [place] [phone] 06/07/2025 9:00 AM EDT [place] [facility] [place] [facility] [address] [place] [phone] 06/10/2025 9:00 AM EDT [place] [facility] [place] [facility] [address] [place] [phone] 06/11/2025 9:00 AM EDT [place] [facility] [place] [facility] [address] [place] [phone] 06/13/2025 9:00 AM EDT [place] [facility] [place] [facility] [address] [place] [address] 06/14/2025 9:00 AM EDT [place] [facility] [place] [facility] [address] [place] [address] 06/17/2025 9:00 AM EDT [place] [facility] [place] [facility] [address] [place] [phone] 06/18/2025 9:00 AM EDT [place] [facility] [place] [facility] [address] [place] [address] 06/20/2025 9:00 AM EDT [place] [facility] [place] [facility] [address] [place] [address] 06/21/2025 9:00 AM EDT [place] [facility] [place] [facility] [address] [place] [address] 06/24/2025 9:00 AM EDT [place] Att[place] [facility] [place] [facility] [address] [place] [phone] 06/25/2025 9:00 AM EDT [place] Att[place] [facility] [place] [facility] [address] [place] [address] 06/27/2025 9:00 AM EDT [place] Att[place] [facility] [place] [facility] [address] [place] [address] 06/28/2025 9:00 AM EDT [place] [facility] [place] [facility] [address] [place] [phone] 07/01/2025 9:00 AM EDT [place] [facility] [place] [facility] [address] [place] [phone] 07/02/2025 9:00 AM EDT [place] [facility] [place] [facility] [address] [place] [address] 07/04/2025 9:00 AM EDT [place] [facility] [place] [facility] [address] [place] [address] 07/05/2025 9:00 AM EDT [place] Att[place] [facility] [place] [facility] [address] [place] [phone] 07/08/2025 9:00 AM EDT [place] Att[place] [facility] [place] [facility] [address] [place] [address] 07/09/2025 9:00 AM EDT [place] Att[place] [facility] [place] [facility] [address] [place] [address] 07/11/2025 9:00 AM EDT P[place] Att[place] [facility] [place] [facility] [address] [place] [address] 07/12/2025 9:00 AM EDT [place] [facility] [place] [facility] [address] [place] [phone] 07/15/2025 9:00 AM EDT [place] [facility] [place] [facility] [address] [place] [address] 07/16/2025 9:00 AM EDT [place] [facility] [place] [facility] [address] [place] [phone] 07/18/2025 9:00 AM EDT [place] [facility] [place] [facility] [address] [place] [phone] 07/19/2025 9:00 AM EDT P[place] [facility] [place] [facility] [address] [place] [phone] 07/22/2025 9:00 AM EDT [place] [facility] [place] [facility] [address] [place] [phone] 07/23/2025 9:00 AM EDT P[place] [facility] [place] [facility] [address] [place] [phone] 07/25/2025 9:00 AM EDT [place] [facility] [place] [facility] [address] [place] [phone] 07/26/2025 9:00 AM EDT [place] [facility] [place] [facility] [address] [place] [address] 07/29/2025 9:00 AM EDT [place] [facility] [place] [facility] [facility] [address] [place] [address] 07/30/2025 9:00 AM EDT [place] [facility] [place] [facility] [address] [place] [address] 08/01/2025 9:00 AM EDT [place] [facility] [place] [facility] [address] [place] [address] 08/02/2025 9:00 AM EDT [place] [facility] [place] [facility] [address] [place] [address] 08/05/2025 9:00 AM EDT [place] [facility] [place] [facility] [address] [place] [address] 08/06/2025 9:00 AM EDT [place] [facility] [place] [facility] [address] [place] [phone] 08/08/2025 9:00 AM EDT [place] [facility] [place] [facility] [address] [place] [phone] 08/09/2025 9:00 AM EDT [place] [facility] [place] [facility] [address] [place] [address] 08/12/2025 9:00 AM EDT [place] [facility] [place] [facility] [address] [place] [address] 08/13/2025 9:00 AM EDT [place] [facility] [place] [facility] [facility] [address] [place] [address] 08/15/2025 9:00 AM EDT P[place] Att[facility] [place] [facility] [address] [place] [address] 08/16/2025 9:00 AM EDT P[place] [facility] [place] [facility] [address] [place] [address] 08/19/2025 9:00 AM EDT [place] [facility] [place] [facility] [address] [place] [address] 08/20/2025 9:00 AM EDT [place] [facility] [place] [facility] [address] [place] [address] 08/22/2025 9:00 AM EDT [place] [facility] [place] [facility] [address] [place] [address] 08/23/2025 9:00 AM EDT [place] [facility] [place] [facility] [address] [place] [address] 08/26/2025 9:00 AM EDT [place] [facility] [place] [facility] [address] [place] [phone] 08/27/2025 9:00 AM EDT [place] [facility] [place] [facility] [address] [place] [phone] 08/29/2025 9:00 AM EDT [place] [facility] [place] [facility] [address] [place] [address] 08/30/2025 9:00 AM EDT [place] [facility] [place] [facility] [address] [place] [address] 09/02/2025 9:00 AM EDT [place] [facility] [place] [facility] [address] [place] [address] 09/03/2025 9:00 AM EDT [place] Att[place] [facility] [place] [facility] [address] [place] [phone] 09/05/2025 9:00 AM EDT PACE Attendance/[facility] [place] [facility] [address] [place] [phone] 09/06/2025 9:00 AM EDT PACE Attendance/Day Center [facility] Day Center [address] [place] [phone] 09/09/2025 9:00 AM EDT PACE Attendance/Day Center [facility] [employer] [facility] PACE Day [address] [phone] 09/10/2025 9:00 AM EDT PACE Attendance/Day Center [facility] [employer] [facility] PACE Day [address] [phone] 09/12/2025 9:00 AM EDT PACE Attendance/Day Center [facility] [employer] [facility] PACE Day [address] [phone] documented as of this encounter Visit Diagnoses Not on filedocumented in this encounter Care Teams Campus Manager Relationship Specialty Start Date End Date Florentin Travis NP [address] [place] [id number] PCP - General 12/27/23 documented as of this encounter
--- OUTSIDE RECORDS SUMMARY | 2025-02-05 18:53 | XMS_ITS | Encounter Summary ---
Author Organization [facility] Address [address] [place] [address] Care Team Providers Care A&P Technician Name Role Phone Florentin Travis NP Primary Care Provider [phone] Reason for Visit * Reason Onset Date Comments Clinical 04/28/2024 Participant call ed to report he was not feeling well. Stating his anxiety medication (Lorazepam) is not working. Noted he is to take the Lorazepam 1 mg, 3 times per day. Last dose taken 1/2 hour ago per participant. Encouraged participant to attempt relaxation techniques, hydrate himself and he stated he would. Spoke to retort feeder ground bone provider Kiara and she does not recommend any medication changes at this time. Instructed participant to call back if symptoms worsen. Verbalized understanding. Encounter Details Date Type Department Care Team ([facility] st Contact Info) Description 04/28/2024 [place] On-Call [facility] [address] [place] [address] Florentin Travis NP [address] [address] Social History Tobacco Use Types Packs/Day Years [...] Author No Risk Indicated 04/30/2024 10:11 AM TRACIET Chanell Obando RN * [place] Suicide Severity Rating Scale (Screener/Recent Self-Report) Question Answer Date of Assessment Author 1. Wish to be (Past 1 Month) No 10:11 AM TRACIET Chanell Mora RN 2. Non-Specific Active Suici simi Thoughts (Past 1 Month) No 04/30/2024 10:11 AM EDT Brodie Mora RN 6. Suicidal Behavior (Lifetime) No 10:11 AM TRACIET Chanell Mora RN 6. Suicidal Behavior (3 Months) No 10:11 AM TRACIET Chanell Mora RN documented as of this encounter Plan of Treatment Upcoming Encounters Date Type Department Care Team (Late st Contact Info) Description 02/06/2025 10:30 AM EST PACE Home Care / P[facility] Visit [facility] [address] [place] [phone] Leonides Lopez 02/07/2025 9:00 AM EST P[place] Att[place] [facility] [place] [facility] [address] [place] [phone] 02/08/2025 9:00 AM EST P[place] Att[place] [facility] [place] [facility] [address] [place] [phone] 02/11/2025 9:00 AM EST P[place] Att[place] [facility] [place] [facility] [address] [place] [phone] 02/12/2025 9:00 AM EST P[place] Att[place] [facility] [place] [facility] [address] [place] [phone] 02/13/2025 10:30 AM EST PACE Home Care / PACE Home Visit [facility] [address] [place] [phone] Leonides Lopez 02/14/2025 9:00 AM EST [place] Att[place] [facility] [place] [facility] [address] [place] [address] 02/15/2025 9:00 AM EST [place] [facility] [place] [facility] [facility] [address] [place] [address] 02/18/2025 9:00 AM EST [place] [facility] [place] [facility] [address] [place] [address] 02/19/2025 9:00 AM EST [place] [facility] [place] [facility] [address] [place] [phone] 02/20/2025 10:30 AM EST PACE Home Care / [place] [facility] [place] [facility] [address] [place] [phone] Leonides Lopez 02/21/2025 9:00 AM EST [place] [facility] [place] [facility] [address] [place] [phone] 02/21/2025 2:00 PM EST PACE Home Care / [place] [facility] [place] [facility] [address] [place] [phone] Chanell Marcos 02/22/2025 9:00 AM EST [place] Att[place] [facility] [place] [facility] [facility] [address] [place] [address] 02/25/2025 9:00 AM EST [place] [facility] [place] [facility] [facility] [address] [place] [address] 02/26/2025 9:00 AM EST [place] [facility] [place] [facility] [facility] [address] [place] [address] 02/27/2025 10:30 AM EST PACE Home Care / [place] [facility] [place] [facility] [place] [facility] [address] [place] [address] Leonides Lopez 02/28/2025 9:00 AM EST [place] [facility] [place] [facility] [facility] [address] [place] [address] 03/01/2025 9:00 AM EST [place] [facility] [place] [facility] [address] [place] [phone] 03/04/2025 9:00 AM EST [place] [facility] [place] [facility] [facility] [address] [place] [phone] 03/05/2025 9:00 AM EST [place] [facility] [place] [facility] [address] [place] [phone] 03/06/2025 10:30 AM EST PACE Home Care / [place] [facility] [place] [facility] [address] [place] [phone] Leonides Lopez 03/07/2025 9:00 AM EST [place] [facility] [place] [facility] [address] [place] [phone] 03/07/2025 1:00 PM EST Clinical Support [facility] [place] [address] [place] [phone] 03/08/2025 9:00 AM EST [place] [facility] [place] [facility] [address] [place] [phone] 03/11/2025 9:00 AM EST [place] [facility] [place] [facility] [facility] [address] [place] [phone] 03/12/2025 9:00 AM EST [place] [facility] [place] [facility] [facility] [address] [place] [phone] 03/13/2025 10:30 AM EST PACE Home Care / [place] [facility] [place] [facility] [place] [facility] [address] [place] [address] Leonides Lopez 03/14/2025 9:00 AM EST [place] [facility] [place] [facility] [address] [place] [address] 03/14/2025 2:00 PM EST PACE Home Care / [place] [facility] [place] [facility] [address] [place] [address] Chanell Marcos 03/15/2025 9:00 AM EST [place] [facility] [place] [facility] [facility] [address] [place] [address] 03/18/2025 9:00 AM EST [place] [facility] [place] [facility] [address] [place] [phone] 03/19/2025 9:00 AM EST [place] [facility] [place] [facility] [facility] [address] [place] [phone] 03/20/2025 10:30 AM EST PACE Home Care / [place] [facility] [place] [facility] [address] [place] [phone] Leonides Lopez 03/21/2025 9:00 AM EST [place] [facility] [place] [facility] [facility] [address] [place] [phone] 03/22/2025 9:00 AM EST [place] [facility] [place] [facility] [facility] [address] [place] [address] 03/25/2025 9:00 AM EST [place] [facility] [place] [facility] [address] [place] [phone] 03/26/2025 9:00 AM EST [place] [facility] [place] [facility] [address] [place] [phone] 03/27/2025 10:30 AM EST PACE Home Care / [place] [facility] [place] [facility] [address] [place] [address] Leonides Lopez 03/28/2025 9:00 AM EST [place] [facility] [place] [facility] [facility] [address] [place] [address] 03/29/2025 9:00 AM EST [place] [facility] [place] [facility] [facility] [address] [place] [address] 04/01/2025 9:00 AM EST [place] [facility] [place] [facility] [facility] [address] [place] [phone] 04/02/2025 9:00 AM EST [place] [facility] [place] [facility] [address] [place] [phone] 04/03/2025 10:30 AM EST PACE Home Care / [place] [facility] [place] [facility] [address] [place] [phone] Leonides Lopez 04/04/2025 9:00 AM EST [place] [facility] [place] [facility] [address] [place] [phone] 04/04/2025 2:00 PM EST PACE Home Care / [place] [facility] [place] [facility] [address] [place] [phone] Chanell Marcos 04/05/2025 9:00 AM EST [place] [facility] [place] [facility] [address] [place] [phone] 04/08/2025 9:00 AM EST [place] [facility] [place] [facility] [facility] [address] [place] [phone] 04/09/2025 9:00 AM EST [place] [facility] [place] [facility] [address] [place] [phone] 04/11/2025 9:00 AM EST [place] [facility] [place] [facility] [facility] [address] [place] [phone] 04/12/2025 9:00 AM EST [place] [facility] [place] [facility] [address] [place] [phone] 04/15/2025 9:00 AM EST PACE Attendance/[facility] [place] [facility] [address] [place] [phone] 04/16/2025 9:00 AM EST PACE Attendance/[facility] [place] [facility] [address] [place] [phone] 04/18/2025 9:00 AM EST PACE Attendance/Day [facility] [place] [facility] [address] [place] [phone] 04/19/2025 9:00 AM EST [place] [facility] [place] [facility] [address] [place] [phone] 04/22/2025 9:00 AM EST [place] [facility] [place] [facility] [address] [place] [phone] 04/23/2025 9:00 AM EST [place] [facility] [place] [facility] [facility] [address] [place] [phone] 04/25/2025 9:00 AM EST P[facility] Attendance[facility] [place] [facility] [address] [place] [phone] 04/26/2025 9:00 AM EST [place] [facility] [place] [facility] [address] [place] [phone] 04/29/2025 9:00 AM EDT [place] [facility] [place] [facility] [address] [place] [phone] 04/30/2025 9:00 AM EDT [facility] [facility] [facility] [place] [facility] [address] [place] [address] 05/02/2025 9:00 AM EDT [facility] [facility] [facility] [place] [facility] [address] [place] [address] 05/03/2025 9:00 AM EDT [place] [facility] [facility] [place] [facility] [address] [place] [address] 05/06/2025 9:00 AM EDT [place] [facility] [place] [facility] [address] [place] [phone] 05/07/2025 9:00 AM EDT [place] [facility] [place] [facility] [address] [place] [phone] 05/09/2025 9:00 AM EDT [place] [facility] [place] [facility] [address] [place] [phone] 05/10/2025 9:00 AM EDT [place] [facility] [facility] [place] [facility] [address] [place] [phone] 05/13/2025 9:00 AM EDT [place] [facility] [place] [facility] [address] [place] [phone] 05/14/2025 9:00 AM EDT [place] Att[facility] [facility] [place] [facility] [address] [place] [address] 05/16/2025 9:00 AM EDT [place] [facility] [place] [facility] [address] [place] [address] 05/17/2025 9:00 AM EDT [place] [facility] [place] [facility] [address] [place] [phone] 05/20/2025 9:00 AM EDT [place] [facility] [facility] [place] [facility] [address] [place] [address] 05/21/2025 9:00 AM EDT [place] [facility] [place] [facility] [address] [place] [address] 05/23/2025 9:00 AM EDT [facility] Att[facility] [facility] [place] [facility] [address] [place] [address] 05/24/2025 9:00 AM EDT [place] [facility] [facility] [place] [facility] [address] [place] [address] 05/27/2025 9:00 AM EDT [place] Att[facility] [facility] [place] [facility] [address] [place] [address] 05/28/2025 9:00 AM EDT [place] [facility] [facility] [place] [facility] [address] [place] [address] 05/30/2025 9:00 AM EDT [place] [facility] [place] [facility] [address] [place] [phone] 05/31/2025 9:00 AM EDT [place] [facility] [place] [facility] [address] [place] [phone] 06/03/2025 9:00 AM EDT [facility] [facility] [facility] [place] [facility] [address] [place] [address] 06/04/2025 9:00 AM EDT [place] [facility] [facility] [place] [facility] [address] [place] [address] 06/06/2025 9:00 AM EDT [facility] [facility] [facility] [place] [facility] [address] [place] [phone] 06/07/2025 9:00 AM EDT [place] [facility] [place] [facility] [address] [place] [address] 06/10/2025 9:00 AM EDT [place] [facility] [place] [facility] [facility] [address] [place] [address] 06/11/2025 9:00 AM EDT [place] [facility] [place] [facility] [facility] [address] [place] [address] 06/13/2025 9:00 AM EDT [place] [facility] [place] [facility] [address] [place] [phone] 06/14/2025 9:00 AM EDT [place] [facility] [place] [facility] [address] [place] [phone] 06/17/2025 9:00 AM EDT [place] [facility] [place] [facility] [address] [place] [phone] 06/18/2025 9:00 AM EDT [place] [facility] [facility] [place] [facility] [address] [place] [phone] 06/20/2025 9:00 AM EDT [place] [facility] [place] [facility] [address] [place] [phone] 06/21/2025 9:00 AM EDT [place] [facility] [place] [facility] [address] [place] [phone] 06/24/2025 9:00 AM EDT [place] [facility] [place] [facility] [address] [place] [phone] 06/25/2025 9:00 AM EDT [place] [facility] [place] [facility] [address] [place] [phone] 06/27/2025 9:00 AM EDT [place] [facility] [place] [facility] [address] [place] [address] 06/28/2025 9:00 AM EDT [place] [facility] [place] [facility] [address] [place] [address] 07/01/2025 9:00 AM EDT [place] [facility] [facility] [place] [facility] [address] [place] [address] 07/02/2025 9:00 AM EDT [facility] [facility] [facility] [place] [facility] [address] [place] [address] 07/04/2025 9:00 AM EDT [facility] [facility] [facility] [place] [facility] [address] [place] [address] 07/05/2025 9:00 AM EDT [facility] [facility] [facility] [place] [facility] [address] [place] [phone] 07/08/2025 9:00 AM EDT [facility] [facility] [facility] [place] [facility] [address] [place] [phone] 07/09/2025 9:00 AM EDT [facility] [facility] [facility] [place] [facility] [address] [place] [phone] 07/11/2025 9:00 AM EDT [place] [facility] [place] [facility] [address] [place] [address] 07/12/2025 9:00 AM EDT [place] [facility] [place] [facility] [address] [place] [phone] 07/15/2025 9:00 AM EDT [facility] [facility] [facility] [place] [facility] [address] [place] [address] 07/16/2025 9:00 AM EDT [facility] Att[facility] [place] [facility] [address] [place] [address] 07/18/2025 9:00 AM EDT [facility] Att[facility] [facility] [place] [facility] [address] [place] [address] 07/19/2025 9:00 AM EDT [facility] [facility] [facility] [place] [facility] [address] [place] [address] 07/22/2025 9:00 AM EDT [facility] [facility] [facility] [place] [facility] [address] [place] [address] 07/23/2025 9:00 AM EDT [facility] [facility] [facility] [place] [facility] [address] [place] [address] 07/25/2025 9:00 AM EDT [facility] [facility] [facility] [place] [facility] [address] [place] [address] 07/26/2025 9:00 AM EDT [facility] [facility] [facility] [place] [facility] [address] [place] [phone] 07/29/2025 9:00 AM EDT [facility] [facility] [facility] [place] [facility] [address] [place] [phone] 07/30/2025 9:00 AM EDT [facility] [facility] [facility] [place] [facility] [address] [place] [address] 08/01/2025 9:00 AM EDT [facility] [facility] [facility] [place] [facility] [address] [place] [address] 08/02/2025 9:00 AM EDT [facility] [facility] [facility] [place] [facility] [address] [place] [address] 08/05/2025 9:00 AM EDT [facility] [facility] [facility] [place] [facility] [address] [place] [address] 08/06/2025 9:00 AM EDT [facility] [facility] [facility] [place] [facility] [address] [place] [address] 08/08/2025 9:00 AM EDT [facility] [facility] [facility] [place] [facility] [address] [place] [address] 08/09/2025 9:00 AM EDT [facility] [facility] [facility] [place] [facility] [address] [place] [address] 08/12/2025 9:00 AM EDT [facility] [facility] [facility] [place] [facility] [address] [place] [phone] 08/13/2025 9:00 AM EDT [facility] [facility] [facility] [place] [facility] [address] [place] [phone] 08/15/2025 9:00 AM EDT [facility] [facility] [facility] [place] [facility] [address] [place] [phone] 08/16/2025 9:00 AM EDT [facility] [facility] [facility] [place] [facility] [address] [place] [phone] 08/19/2025 9:00 AM EDT [facility] [facility] [facility] [place] [facility] [address] [place] [address] 08/20/2025 9:00 AM EDT [facility] [facility] [facility] [place] [facility] [address] [place] [phone] 08/22/2025 9:00 AM EDT [place] [facility] [place] [facility] [address] [place] [address] 08/23/2025 9:00 AM EDT [facility] [facility] [facility] [place] [facility] [address] [place] [phone] 08/26/2025 9:00 AM EDT [facility] [facility] [facility] [place] [facility] [address] [place] [phone] 08/27/2025 9:00 AM EDT [facility] [facility] [facility] [place] [facility] [address] [place] [phone] 08/29/2025 9:00 AM EDT [facility] [facility] [facility] [place] [facility] [address] [place] [phone] 08/30/2025 9:00 AM EDT [facility] [facility] [facility] [place] [facility] [address] [place] [phone] 09/02/2025 9:00 AM EDT [facility] [facility] [facility] [place] [facility] [address] [place] [phone] 09/03/2025 9:00 AM EDT [facility] [facility] [facility] [place] [facility] [address] [place] [phone] 09/05/2025 9:00 AM EDT [facility] [facility] [facility] [place] [facility] [address] [place] [phone] 09/06/2025 9:00 AM EDT [facility] [facility] [facility] [place] [facility] [address] [place] [phone] 09/09/2025 9:00 AM EDT [facility] [facility] [facility] [place] [facility] [address] [place] [address] 09/10/2025 9:00 AM EDT [facility] [facility] [place] [facility] [address] [place] [phone] 09/12/2025 9:00 AM EDT [facility] [facility] [facility] [place] [facility] [address] [place] [phone] documented as of this encounter Visit Diagnoses Not on filedocumented in this encounter Care Teams A&P Technician Relationship Specialty Start Date End Date Florentin Travis NP [address] [address] PCP - General 12/27/23 documented as of this encounter
--- OUTSIDE RECORDS SUMMARY | 2025-02-05 18:53 | XMS_ITS | Encounter Summary ---
Author Organization [facility] Address [address] [place] [address] Care Team Providers Care Armed Custom Protection Officer Name Role Phone Florentin Travis NP Primary Care Provider [phone] Reason for Visit * Reason Onset Date Comments Medication 02/01/2025 Darcy from [facility] called to report par called in a refill for cyclobenzaprine 5mg. Call placed to par to inform him medication would be refilled today at [facility] pharmacy and he would get it on Tuesday. Par verbalized understanding. Encounter Details Date Type Department Care Team (Late Contact Info) Description 02/01/2025 [facility]IL[facility] On-Call [facility] [address] [place] [address] Florentin Travis NP [phone] [address] Social History Tobacco Use Types Packs/Day Years [...] In [facility] [address] [place] [address] Leonides Lopez 02/07/2025 9:00 AM EST PACE Attendance/[place] [facility] [place] [facility] [address] [place] [address] 02/08/2025 9:00 AM EST PACE Att[place] [facility] [place] [facility] [address] [place] [address] 02/11/2025 9:00 AM EST PACE Att[place] [facility] [place] [facility] [address] [place] [address] 02/12/2025 9:00 AM EST P[place] Att[place] [facility] [place] [facility] [address] [place] [address] 02/13/2025 10:30 AM EST PACE Home [facility] / [facility] [place] [facility] [address] [place] [address] Leonides Lopez 02/14/2025 9:00 AM EST PACE Att[place] [facility] [place] [facility] [address] [place] [address] 02/15/2025 9:00 AM EST PACE Att[place] [facility] [place] [facility] [address] [place] [address] 02/18/2025 9:00 AM EST PACE Att[place] [facility] [place] [facility] [facility] [address] [place] [address] 02/19/2025 9:00 AM EST P[place] [facility] [place] [facility] [address] [place] [address] 02/20/2025 10:30 AM EST PACE Home Care / [place] [facility] [place] [facility] [address] [place] [phone] Leonides Lopez 02/21/2025 9:00 AM EST PACE Attendance/[place] Center [facility] [place] [facility] [address] [place] [address] 02/21/2025 2:00 PM EST PACE Home Care / [place] [facility] [place] [facility] [address] [place] [phone] Chanell Marcos 02/22/2025 9:00 AM EST PACE Attendance/[place] [facility] [place] [facility] [address] [place] [address] 02/25/2025 9:00 AM EST PACE Att[place] [facility] [place] [facility] [address] [place] [phone] 02/26/2025 9:00 AM EST PACE Attendance[place] [facility] [place] [facility] [address] [place] [phone] 02/27/2025 10:30 AM EST PACE Home Care / [place] [facility] [place] [facility] [address] [place] [phone] Leonides Lopez 02/28/2025 9:00 AM EST P[place] Att[place] [facility] [place] [facility] [address] [place] [phone] 03/01/2025 9:00 AM EST PACE Att[place] [facility] [place] [facility] [facility] [address] [place] [address] 03/04/2025 9:00 AM EST PACE Attendance/[facility] [place] [facility] [address] [place] [address] 03/05/2025 9:00 AM EST PACE Attendance[facility] [place] [facility] [address] [place] [phone] 03/06/2025 10:30 AM EST PACE Home Care / [place] [facility] [place] [facility] [address] [place] [address] Leonides Lopez 03/07/2025 9:00 AM EST PACE Att[place] [facility] [place] [facility] [address] [place] [address] 03/07/2025 1:00 PM EST [facility] [address] [place] [address] 03/08/2025 9:00 AM EST PACE Attendance[facility] [address] [place] [phone] 03/11/2025 9:00 AM EST P[place] Att[place] [facility] [place] [facility] [address] [place] [phone] 03/12/2025 9:00 AM EST PACE [facility] [address] [address] 03/13/2025 10:30 AM EST PACE Home Care / [facility] [place] [facility] [address] [place] [phone] Leonides Lopez 03/14/2025 9:00 AM EST PACE Att[place]ance[facility] [facility] [place] [facility] [address] [address] 03/14/2025 2:00 PM EST PACE Home Care / [place] [facility] [place] [facility] [address] [place] [phone] Chanell Marcos 03/15/2025 9:00 AM EST PACE Attendance/Day Center [facility] [address] [place] [phone] 03/18/2025 9:00 AM EST PACE Attendance[facility] [address] [place] [phone] 03/19/2025 9:00 AM EST [place] [facility] [place] [facility] [facility] [address] [place] [address] 03/20/2025 10:30 AM EST PACE Home Care / [place] [facility] [place] [facility] [address] [place] [address] Leonides Lopez 03/21/2025 9:00 AM EST PACE Att[place] [facility] [place] [facility] [address] [place] [address] 03/22/2025 9:00 AM EST P[place] [facility] [place] [facility] [facility] [address] [place] [address] 03/25/2025 9:00 AM EST P[place] [facility] [place] [facility] [facility] [address] [place] [address] 03/26/2025 9:00 AM EST P[place] [facility] [place] [facility] [address] [place] [phone] 03/27/2025 10:30 AM EST PACE Home Care / [place] [facility] [place] [facility] [place] [facility] [address] [place] [address] Leonides Lopez 03/28/2025 9:00 AM EST PACE Att[place] [facility] [place] [facility] [address] [place] [address] 03/29/2025 9:00 AM EST P[place] Att[place] [facility] [place] [facility] [address] [place] [address] 04/01/2025 9:00 AM EST P[place] [facility] [place] [facility] [address] [place] [address] 04/02/2025 9:00 AM EST [place] [facility] [place] [facility] [facility] [address] [place] [address] 04/03/2025 10:30 AM EST PACE Home Care [facility] [place] [facility] [address] [place] [address] Leonides Lopez 04/04/2025 9:00 AM EST PACE [facility] [place] [facility] [address] [place] [address] 04/04/2025 2:00 PM EST PACE Home Care / [facility] [place] [facility] [address] [place] [address] AshaChanell daily 04/05/2025 9:00 AM EST P[facility] [place] [facility] [address] [place] [address] 04/08/2025 9:00 AM EST P[facility] [place] [facility] [address] [place] [phone] 04/09/2025 9:00 AM EST [facility] [place] [facility] [address] [place] [phone] 04/11/2025 9:00 AM EST PACE Attendance[facility] [place] [facility] [address] [place] [phone] 04/12/2025 9:00 AM EST PACE Attendance/[facility] Center [facility] [place] [facility] [address] [place] [phone] 04/15/2025 9:00 AM EST PACE Attendance[facility] [facility] [place] [facility] [address] [place] [address] 04/16/2025 9:00 AM EST PACE Attendance[facility] [place] [facility] [address] [place] [address] 04/18/2025 9:00 AM EST PACE Attendance[facility] [place] [facility] [address] [place] [address] 04/19/2025 9:00 AM EST P[place] Att[place] [facility] [place] [facility] [address] [place] [address] 04/22/2025 9:00 AM EST P[place] Att[place] [facility] [place] [facility] [address] [place] [phone] 04/23/2025 9:00 AM EST P[place] Att[place] [facility] [place] [facility] [address] [place] [address] 04/25/2025 9:00 AM EST P[place] Att[place] [facility] [place] [facility] [address] [place] [phone] 04/26/2025 9:00 AM EST PACE Attendance[facility] [facility] [place] [facility] [address] [place] [phone] 04/29/2025 9:00 AM EDT PACE Attendance[place] [facility] [place] [facility] [address] [place] [phone] 04/30/2025 9:00 AM EDT P[place] Att[place] [facility] [place] [facility] [address] [place] [phone] 05/02/2025 9:00 AM EDT P[place] Att[place] [facility] [place] [facility] [address] [place] [phone] 05/03/2025 9:00 AM EDT P[place] Att[place] [facility] [place] [facility] [address] [place] [phone] 05/06/2025 9:00 AM EDT PACE Attendance[facility] [place] [facility] [address] [place] [phone] 05/07/2025 9:00 AM EDT P[place] Att[place] [facility] [place] [facility] [address] [place] [phone] 05/09/2025 9:00 AM EDT PACE Attendance[facility] [place] [facility] [address] [place] [address] 05/10/2025 9:00 AM EDT P[place] Att[place] [facility] [place] [facility] [address] [place] [address] 05/13/2025 9:00 AM EDT P[place] Att[place] [facility] [place] [facility] [address] [place] [address] 05/14/2025 9:00 AM EDT P[place] Att[place] [facility] [place] [facility] [address] [place] [address] 05/16/2025 9:00 AM EDT P[place] [facility] [place] [facility] [address] [place] [address] 05/17/2025 9:00 AM EDT P[place] Att[place] [facility] [place] [facility] [address] [place] [address] 05/20/2025 9:00 AM EDT P[place] Att[place] [facility] [place] [facility] [address] [place] [phone] 05/21/2025 9:00 AM EDT P[place] Att[place] [facility] [place] [facility] [address] [place] [phone] 05/23/2025 9:00 AM EDT P[place] Att[place] [facility] [place] [facility] [address] [place] [address] 05/24/2025 9:00 AM EDT P[place] Att[place] [facility] [place] [facility] [address] [place] [address] 05/27/2025 9:00 AM EDT P[place] Att[place] [facility] [place] [facility] [address] [place] [address] 05/28/2025 9:00 AM EDT PACE Attendance[facility] [place] [facility] [address] [place] [address] 05/30/2025 9:00 AM EDT PACE Att[facility]ance[facility] [facility] [place] [facility] [address] [place] [address] 05/31/2025 9:00 AM EDT P[place] Att[place] [facility] [place] [facility] [address] [place] [address] 06/03/2025 9:00 AM EDT P[place] Att[place]ance[facility] [facility] [place] [facility] [address] [place] [address] 06/04/2025 9:00 AM EDT P[place] Att[place] [facility] [place] [facility] [address] [place] [address] 06/06/2025 9:00 AM EDT P[place] Att[place] [facility] [place] [facility] [address] [place] [phone] 06/07/2025 9:00 AM EDT P[place] Att[place] [facility] [place] [facility] [address] [place] [phone] 06/10/2025 9:00 AM EDT P[place] [facility] [place] [facility] [address] [place] [phone] 06/11/2025 9:00 AM EDT P[place] Att[place] [facility] [place] [facility] [address] [place] [address] 06/13/2025 9:00 AM EDT P[place] Att[place] [facility] [place] [facility] [address] [place] [address] 06/14/2025 9:00 AM EDT PACE Attendance[facility] [place] [facility] [place] [facility] [address] [place] [address] 06/17/2025 9:00 AM EDT P[place] Att[facility] [facility] [place] [facility] [address] [place] [address] 06/18/2025 9:00 AM EDT P[place] Att[place] [facility] [place] [facility] [address] [place] [address] 06/20/2025 9:00 AM EDT P[place] Att[place] [facility] [place] [facility] [address] [place] [address] 06/21/2025 9:00 AM EDT P[place] Att[place] [facility] [place] [facility] [address] [place] [address] 06/24/2025 9:00 AM EDT P[place] Att[facility] [facility] [place] [facility] [address] [place] [address] 06/25/2025 9:00 AM EDT P[place] Att[place] [facility] [place] [facility] [address] [place] [address] 06/27/2025 9:00 AM EDT P[place] Att[place] [facility] [place] [facility] [address] [place] [phone] 06/28/2025 9:00 AM EDT P[place] Att[place] [facility] [place] [facility] [address] [place] [phone] 07/01/2025 9:00 AM EDT P[place] Att[facility] [facility] [place] [facility] [address] [place] [address] 07/02/2025 9:00 AM EDT P[place] Att[place] [facility] [place] [facility] [address] [place] [address] 07/04/2025 9:00 AM EDT P[place] [facility] [facility] [place] [facility] [address] [place] [phone] 07/05/2025 9:00 AM EDT P[place] Att[facility] [facility] [place] [facility] [address] [place] [address] 07/08/2025 9:00 AM EDT P[place] Att[facility] [facility] [place] [facility] [address] [place] [phone] 07/09/2025 9:00 AM EDT P[place] Att[place] [facility] [place] [facility] [address] [place] [phone] 07/11/2025 9:00 AM EDT P[place] [facility] [facility] [place] [facility] [address] [place] [phone] 07/12/2025 9:00 AM EDT P[place] [facility] [facility] [place] [facility] [address] [place] [address] 07/15/2025 9:00 AM EDT P[place] [facility] [facility] [place] [facility] [address] [place] [phone] 07/16/2025 9:00 AM EDT P[place] Att[place] [facility] [place] [facility] [address] [place] [address] 07/18/2025 9:00 AM EDT P[place] Att[facility] [facility] [place] [facility] [address] [place] [phone] 07/19/2025 9:00 AM EDT P[place] [facility] [place] [facility] [address] [place] [address] 07/22/2025 9:00 AM EDT P[place] Att[place] [facility] [place] [facility] [address] [place] [phone] 07/23/2025 9:00 AM EDT P[place] Att[place] [facility] [place] [facility] [address] [place] [phone] 07/25/2025 9:00 AM EDT P[place] Att[place] [facility] [place] [facility] [address] [place] [phone] 07/26/2025 9:00 AM EDT P[facility] Att[facility] [place] [facility] [address] [place] [address] 07/29/2025 9:00 AM EDT P[facility] Att[facility] [place] [facility] [address] [place] [address] 07/30/2025 9:00 AM EDT P[facility] Att[facility] [place] [facility] [address] [place] [address] 08/01/2025 9:00 AM EDT P[facility] Att[facility] [facility] [place] [facility] [address] [place] [phone] 08/02/2025 9:00 AM EDT P[place] Att[facility] [facility] [place] [facility] [address] [place] [phone] 08/05/2025 9:00 AM EDT P[place] [facility] [facility] [place] [facility] [address] [place] [address] 08/06/2025 9:00 AM EDT P[place] Att[facility] [facility] [place] [facility] [address] [place] [phone] 08/08/2025 9:00 AM EDT P[place] Att[facility] [facility] [place] [facility] [address] [place] [phone] 08/09/2025 9:00 AM EDT P[place] Att[facility] [facility] [place] [facility] [address] [place] [phone] 08/12/2025 9:00 AM EDT P[place] [facility] [place] [facility] [address] [place] [phone] 08/13/2025 9:00 AM EDT P[place] Att[facility] [facility] [place] [facility] [address] [place] [phone] 08/15/2025 9:00 AM EDT P[facility] Att[facility] [place] [facility] [address] [place] [address] 08/16/2025 9:00 AM EDT P[facility] Att[facility] [facility] [place] [facility] [address] [place] [address] 08/19/2025 9:00 AM EDT P[facility] [facility] [place] [facility] [address] [place] [address] 08/20/2025 9:00 AM EDT P[place] Att[facility] [facility] [place] [facility] [address] [place] [phone] 08/22/2025 9:00 AM EDT P[place] [facility] [facility] [place] [facility] [address] [place] [phone] 08/23/2025 9:00 AM EDT P[place] [facility] [facility] [place] [facility] [address] [place] [phone] 08/26/2025 9:00 AM EDT P[place] Att[facility] [facility] [place] [facility] [address] [place] [phone] 08/27/2025 9:00 AM EDT P[place] Att[facility] [facility] [place] [facility] [address] [place] [phone] 08/29/2025 9:00 AM EDT P[place] Att[facility] [facility] [place] [facility] [address] [place] [address] 08/30/2025 9:00 AM EDT P[place] [facility] [place] [facility] [address] [place] [address] 09/02/2025 9:00 AM EDT P[place] Att[place] [facility] [place] [facility] [address] [place] [phone] 09/03/2025 9:00 AM EDT PACE Attendance/Day [facility] [address] [place] [phone] 09/05/2025 9:00 AM EDT PACE Attendance/Day [facility] [address] [place] [phone] 09/06/2025 9:00 AM EDT PACE Attendance[facility] [address] [place] [phone] 09/09/2025 9:00 AM EDT PACE Attendance/Day Center [facility] [address] [place] [phone] 09/10/2025 9:00 AM EDT PACE Attendance/Day Center [facility] [address] [place] [phone] 09/12/2025 9:00 AM EDT PACE Attendance/Day Center [facility] [address] [place] [phone] documented as of this encounter Visit Diagnoses Not on filedocumented in this encounter Additional Health Concerns Assessment Noted Time PHQ-9 Depression Total Score: 0 12/29/19 25 10:21 AM EST documented as of this encounter Care Teams Armed Custom Protection Officer Relationship Specialty Start Date End Date Florentin Travis NP [address] [address] PCP - General 12/27/23 documented as of this encounter
--- OUTSIDE RECORDS SUMMARY | 2025-02-05 18:53 | XMS_ITS | Encounter Summary ---
Author Organization [facility] Address [address] [place] [address] Care Team Providers Care Tip Mender Name Role Phone Florentin Travis NP Primary Care Provider [phone] Encounter Details Date Type Department Care Team (Late Contact Info) Description 07/03/2024 Health Home Core [facility] [address] [place] [address] Merlyn Gibbs RN Social History Tobacco Use Types Packs/Day Years [...] PACE Home Care / P[facility] Home Visit [email or web address] [place] [facility] [address] [place] [phone] Leonides Lopez 02/07/2025 9:00 AM EST PACE Attendance/Day Center [facility] [address] [place] [phone] 02/08/2025 9:00 AM EST [facility] Attendance/[place] [facility] [place] [facility] [address] [place] [address] 02/11/2025 9:00 AM EST [facility] Attend[place] [facility] [place] [facility] [address] [place] [address] 02/12/2025 9:00 AM EST [facility] Att[place] [facility] [place] [facility] [address] [place] [address] 02/13/2025 10:30 AM EST PACE Home Care / [place] [facility] [place] [facility] [address] [place] [phone] Leonides Lopez 02/14/2025 9:00 AM EST [place] Att[place] [facility] [place] [facility] [address] [place] [address] 02/15/2025 9:00 AM EST [place] Att[place] [facility] [place] [facility] [address] [place] [address] 02/18/2025 9:00 AM EST [place] Att[place] [facility] [place] [facility] [address] [place] [phone] 02/19/2025 9:00 AM EST [place] Att[place] [facility] [place] [facility] [address] [place] [phone] 02/20/2025 10:30 AM EST PACE Home Care / [place] [facility] [place] [facility] [address] [place] [phone] Leonides Lopez 02/21/2025 9:00 AM EST [place] Att[place] [facility] [place] [facility] [address] [place] [phone] 02/21/2025 2:00 PM EST PACE Home Care / [place] [facility] [place] [facility] [address] [place] [phone] Chanell Marcos 02/22/2025 9:00 AM EST [facility] Att[place] [facility] [place] [facility] [address] [place] [address] 02/25/2025 9:00 AM EST [facility] Att[place] [facility] [place] [facility] [address] [place] [address] 02/26/2025 9:00 AM EST [place] Att[place] [facility] [place] [facility] [address] [place] [address] 02/27/2025 10:30 AM EST PACE Home Care / [facility] [place] [facility] [address] [place] [phone] Leonides Lopez 02/28/2025 9:00 AM EST P[place] Att[place] [facility] [place] [facility] [address] [place] [address] 03/01/2025 9:00 AM EST [facility] Att[place] [facility] [place] [facility] [address] [place] [phone] 03/04/2025 9:00 AM EST PACE Attendance[facility] [facility] [place] [facility] [address] [place] [phone] 03/05/2025 9:00 AM EST PACE Attendance/Day Center [facility] [address] [place] [phone] 03/06/2025 10:30 AM EST PACE Home Care / [facility] [place] [facility] [place] [facility] [address] [place] [phone] Leonides Lopez 03/07/2025 9:00 AM EST [facility] Att[place] [facility] [place] [facility] [address] [place] [phone] 03/07/2025 1:00 PM EST [facility] Support [facility] [place] [address] [place] [address] 03/08/2025 9:00 AM EST [facility] Attend[place] [facility] [place] [facility] [address] [place] [address] 03/11/2025 9:00 AM EST [place] Att[place] [facility] [place] [facility] [address] [place] [address] 03/12/2025 9:00 AM EST [facility] Att[place] [facility] [place] [facility] [address] [place] [address] 03/13/2025 10:30 AM EST PACE Home Care / [place] [facility] [place] [facility] [address] [place] [phone] Leonides Lopez 03/14/2025 9:00 AM EST [facility] Att[place] [facility] [place] [facility] [address] [place] [address] 03/14/2025 2:00 PM EST PACE Home Care / [place] [facility] [place] [facility] [address] [place] [address] Chanell Marcos 03/15/2025 9:00 AM EST [place] Att[place] [facility] [place] [facility] [address] [place] [address] 03/18/2025 9:00 AM EST [place] Att[place] [facility] [place] [facility] [address] [place] [address] 03/19/2025 9:00 AM EST [place] Att[place] [facility] [place] [facility] [address] [place] [address] 03/20/2025 10:30 AM EST PACE Home Care / [place] [facility] [place] [facility] [address] [place] [address] Leonides Lopez 03/21/2025 9:00 AM EST [place] Att[place] [facility] [place] [facility] [address] [place] [address] 03/22/2025 9:00 AM EST [place] Att[place] [facility] [place] [facility] [address] [place] [address] 03/25/2025 9:00 AM EST [place] Att[place] [facility] [place] [facility] [address] [place] [address] 03/26/2025 9:00 AM EST [place] Att[place] [facility] [place] [facility] [address] [place] [address] 03/27/2025 10:30 AM EST PACE Home Care / [place] [facility] [place] [facility] [place] [facility] [address] [place] [phone] Leonides Lopez 03/28/2025 9:00 AM EST PACE Att[facility] [facility] [place] [facility] [address] [place] [address] 03/29/2025 9:00 AM EST [place] Att[place] [facility] [place] [facility] [address] [place] [phone] 04/01/2025 9:00 AM EST P[place] Att[place] [facility] [place] [facility] [address] [place] [phone] 04/02/2025 9:00 AM EST [place] Att[place] [facility] [place] [facility] [address] [place] [address] 04/03/2025 10:30 AM EST PACE Home Care / [place] [facility] [place] [facility] [address] [place] [phone] Leonides Lopez 04/04/2025 9:00 AM EST [place] Att[place] [facility] [place] [facility] [address] [place] [address] 04/04/2025 2:00 PM EST PACE Home Care / [place] [facility] [place] [facility] [address] [place] [address] Chanell Marcos 04/05/2025 9:00 AM EST PACE Attendance[facility] [facility] [place] [facility] [address] [place] [address] 04/08/2025 9:00 AM EST P[place] Attend[place] [facility] [place] [facility] [address] [place] [address] 04/09/2025 9:00 AM EST P[place] Att[place] [facility] [place] [facility] [address] [place] [address] 04/11/2025 9:00 AM EST P[place] Att[place] [facility] [place] [facility] [address] [place] [address] 04/12/2025 9:00 AM EST [place] Att[place] [facility] [place] [facility] [address] [place] [address] 04/15/2025 9:00 AM EST [place] Att[place] [facility] [place] [facility] [address] [place] [phone] 04/16/2025 9:00 AM EST P[place] Attend[place] [facility] [place] [facility] [address] [place] [phone] 04/18/2025 9:00 AM EST P[place] Att[place] [facility] [place] [facility] [address] [place] [address] 04/19/2025 9:00 AM EST P[place] Attend[place] [facility] [place] [facility] [address] [place] [address] 04/22/2025 9:00 AM EST PACE Attendance[facility] [facility] [place] [facility] [address] [place] [address] 04/23/2025 9:00 AM EST P[facility] Attendance[facility] [place] [facility] [address] [place] [address] 04/25/2025 9:00 AM EST PACE Attendance[facility] [facility] [place] [facility] [address] [place] [address] 04/26/2025 9:00 AM EST P[place] Att[facility] [facility] [place] [facility] [address] [place] [address] 04/29/2025 9:00 AM EDT [facility] Att[facility] [facility] [place] [facility] [address] [place] [phone] 04/30/2025 9:00 AM EDT P[place] Attendance[facility] [facility] [place] [facility] [address] [place] [phone] 05/02/2025 9:00 AM EDT [facility] Att[facility] [facility] [place] [facility] [address] [place] [phone] 05/03/2025 9:00 AM EDT [facility] Att[facility] [facility] [place] [facility] [address] [place] [phone] 05/06/2025 9:00 AM EDT [facility] Att[facility] [facility] [place] [facility] [address] [place] [phone] 05/07/2025 9:00 AM EDT [facility] Att[facility] [facility] [place] [facility] [address] [place] [phone] 05/09/2025 9:00 AM EDT [facility] Att[facility] [facility] [place] [facility] [address] [place] [phone] 05/10/2025 9:00 AM EDT [facility] Att[facility] [facility] [place] [facility] [address] [place] [phone] 05/13/2025 9:00 AM EDT P[place] Att[facility] [facility] [place] [facility] [address] [place] [phone] 05/14/2025 9:00 AM EDT P[place] Attend[facility] [facility] [place] [facility] [address] [place] [address] 05/16/2025 9:00 AM EDT [facility] Att[facility] [facility] [place] [facility] [address] [place] [address] 05/17/2025 9:00 AM EDT [facility] Att[facility] [facility] [place] [facility] [address] [place] [address] 05/20/2025 9:00 AM EDT [facility] Att[facility] [facility] [place] [facility] [address] [place] [address] 05/21/2025 9:00 AM EDT P[place] Att[facility] [facility] [place] [facility] [address] [place] [phone] 05/23/2025 9:00 AM EDT P[place] Att[facility] [facility] [place] [facility] [address] [place] [phone] 05/24/2025 9:00 AM EDT P[place] Att[place] [facility] [place] [facility] [address] [place] [phone] 05/27/2025 9:00 AM EDT P[place] Att[facility] [facility] [place] [facility] [address] [place] [phone] 05/28/2025 9:00 AM EDT P[place] Att[place] [facility] [place] [facility] [address] [place] [phone] 05/30/2025 9:00 AM EDT P[place] Att[place] [facility] [place] [facility] [address] [place] [phone] 05/31/2025 9:00 AM EDT [place] Att[place] [facility] [place] [facility] [address] [place] [phone] 06/03/2025 9:00 AM EDT P[place] Att[facility] [facility] [place] [facility] [address] [place] [phone] 06/04/2025 9:00 AM EDT P[place] Att[place] [facility] [place] [facility] [address] [place] [phone] 06/06/2025 9:00 AM EDT P[place] Attend[place] [facility] [place] [facility] [address] [place] [phone] 06/07/2025 9:00 AM EDT P[place] Att[place] [facility] [place] [facility] [address] [place] [phone] 06/10/2025 9:00 AM EDT P[place] Att[facility] [facility] [place] [facility] [address] [place] [phone] 06/11/2025 9:00 AM EDT [facility] Att[facility] [facility] [place] [facility] [address] [place] [phone] 06/13/2025 9:00 AM EDT P[place] Att[facility] [facility] [place] [facility] [address] [place] [phone] 06/14/2025 9:00 AM EDT [place] Att[place] [facility] [place] [facility] [address] [place] [phone] 06/17/2025 9:00 AM EDT [place] Att[place] [facility] [place] [facility] [address] [place] [phone] 06/18/2025 9:00 AM EDT [place] Att[place] [facility] [place] [facility] [address] [place] [phone] 06/20/2025 9:00 AM EDT [place] Att[place] [facility] [place] [facility] [address] [place] [phone] 06/21/2025 9:00 AM EDT [facility] Att[facility] [facility] [place] [facility] [address] [place] [address] 06/24/2025 9:00 AM EDT [facility] Att[facility] [facility] [place] [facility] [address] [place] [address] 06/25/2025 9:00 AM EDT [facility] Attend[facility] [facility] [place] [facility] [address] [place] [address] 06/27/2025 9:00 AM EDT P[place] Att[facility] [facility] [place] [facility] [address] [place] [phone] 06/28/2025 9:00 AM EDT [facility] Att[facility] [facility] [place] [facility] [address] [place] [phone] 07/01/2025 9:00 AM EDT [facility] Att[facility] [facility] [place] [facility] [address] [place] [phone] 07/02/2025 9:00 AM EDT [facility] Att[facility] [facility] [place] [facility] [address] [place] [phone] 07/04/2025 9:00 AM EDT [facility] Att[facility] [facility] [place] [facility] [address] [place] [phone] 07/05/2025 9:00 AM EDT [facility] Att[facility] [facility] [place] [facility] [address] [place] [phone] 07/08/2025 9:00 AM EDT [facility] Att[facility] [facility] [place] [facility] [address] [place] [phone] 07/09/2025 9:00 AM EDT [facility] Att[facility] [facility] [place] [facility] [address] [place] [phone] 07/11/2025 9:00 AM EDT [facility] Att[facility] [facility] [place] [facility] [address] [place] [address] 07/12/2025 9:00 AM EDT [facility] Att[facility] [facility] [place] [facility] [address] [place] [address] 07/15/2025 9:00 AM EDT [facility] Attend[facility] [facility] [place] [facility] [address] [place] [address] 07/16/2025 9:00 AM EDT P[place] Attend[facility] [facility] [place] [facility] [address] [place] [phone] 07/18/2025 9:00 AM EDT P[place] Att[facility] [facility] [place] [facility] [address] [place] [phone] 07/19/2025 9:00 AM EDT P[place] Att[facility] [facility] [place] [facility] [address] [place] [phone] 07/22/2025 9:00 AM EDT [facility] Att[facility] [facility] [place] [facility] [address] [place] [phone] 07/23/2025 9:00 AM EDT P[place] Att[facility] [facility] [place] [facility] [address] [place] [phone] 07/25/2025 9:00 AM EDT [facility] Attend[facility] [facility] [place] [facility] [address] [place] [address] 07/26/2025 9:00 AM EDT [facility] Att[facility] [facility] [place] [facility] [address] [place] [address] 07/29/2025 9:00 AM EDT [facility] Att[facility] [facility] [place] [facility] [address] [place] [phone] 07/30/2025 9:00 AM EDT P[facility] Attendance[facility] [facility] [place] [facility] [address] [place] [address] 08/01/2025 9:00 AM EDT [facility] Attend[facility] [facility] [place] [facility] [address] [place] [address] 08/02/2025 9:00 AM EDT [facility] Att[facility] [facility] [place] [facility] [address] [place] [address] 08/05/2025 9:00 AM EDT P[place] Att[facility] [facility] [place] [facility] [address] [place] [phone] 08/06/2025 9:00 AM EDT [facility] Att[facility] [facility] [place] [facility] [address] [place] [phone] 08/08/2025 9:00 AM EDT [facility] Att[facility] [facility] [place] [facility] [address] [place] [phone] 08/09/2025 9:00 AM EDT P[facility] Att[facility] [facility] [place] [facility] [address] [place] [phone] 08/12/2025 9:00 AM EDT P[place] Att[facility] [facility] [place] [facility] [address] [place] [phone] 08/13/2025 9:00 AM EDT [facility] Attend[facility] [facility] [place] [facility] [address] [place] [address] 08/15/2025 9:00 AM EDT [facility] Attend[facility] [facility] [place] [facility] [address] [place] [address] 08/16/2025 9:00 AM EDT P[facility] Att[facility] [facility] [place] [facility] [address] [place] [phone] 08/19/2025 9:00 AM EDT [facility] Att[facility] [facility] [place] [facility] [address] [place] [address] 08/20/2025 9:00 AM EDT [facility] Att[facility] [facility] [place] [facility] [address] [place] [address] 08/22/2025 9:00 AM EDT [facility] Att[facility] [facility] [place] [facility] [address] [place] [address] 08/23/2025 9:00 AM EDT [facility] Att[facility] [facility] [place] [facility] [address] [place] [address] 08/26/2025 9:00 AM EDT P[facility] Att[facility] [facility] [place] [facility] [address] [place] [phone] 08/27/2025 9:00 AM EDT P[facility] Att[facility] [facility] [place] [facility] [address] [place] [phone] 08/29/2025 9:00 AM EDT [facility] Att[facility] [facility] [place] [facility] [address] [place] [phone] 08/30/2025 9:00 AM EDT P[facility] Att[facility] [facility] [place] [facility] [address] [place] [phone] 09/02/2025 9:00 AM EDT P[place] Att[facility] [facility] [place] [facility] [address] [place] [phone] 09/03/2025 9:00 AM EDT P[place] Att[facility] [facility] [place] [facility] [address] [place] [phone] 09/05/2025 9:00 AM EDT P[place] Att[facility] [facility] [place] [facility] [address] [place] [phone] 09/06/2025 9:00 AM EDT PACE Attendance/Day Center [email or web address] [place] [facility] [address] [place] [phone] 09/09/2025 9:00 AM EDT [facility] [place] [facility] [address] [address] 09/10/2025 9:00 AM EDT P[facility] Attendance[facility] [address] [phone] 09/12/2025 9:00 AM EDT PACE Attendance[facility] [place] [facility] [address] [phone] documented as of this encounter Visit Diagnoses Not on filedocumented in this encounter Care Teams Tip Mender Relationship Specialty Start Date End Date Florentin Travis NP [address] [place] [phone] PCP - General 12/27/23 documented as of this encounter
== END 2025-02-05 15:12 | disposition home or self-care (01) ==
LOC: HO.HSM 14:37
PROVIDERS: PCP Internal Medicine; Visit Provider Psychiatry & Neurology Neurology
DX: G24.3 Spasmodic torticollis (principal)
CPT/HCPCS: 99203

== ENCOUNTER → 2025-02-05 14:36 | Outpatient (BNVA) | payer OTHER, SELFPAY | PROVIDERS: PCP Internal Medicine; Visit Provider Psychiatry & Neurology Neurology | DX: G24.3 Spasmodic torticollis (principal) | CPT/HCPCS: 99202 ==